=== PATIENT | female | born 1965 | race Caucasian/White ===

== ENCOUNTER 2016-07-15 18:16 | Emergency (ER) | payer MEDICAID ==
[~2016-07-15] VITALS: Ht 172.7 cm; Wt 79.9 kg
[~2016-07-15 18:16] MED LIST: BLAC20TA PO; FERR325T20 PO; LEVO50TA5 PO
[2016-07-15] MEDS ORDERED: SODIUM CHLORIDE FLUSH 10ML SYR IVF ONE (19:00)
[2016-07-15] MEDS ORDERED: SODIUM CHLORIDE 0.9% 1,000 ML IV ONE (19:00)
[2016-07-15 19:33] LABS: BLOOD UREA NITROGEN 24 mg/dL (7-18)
[2016-07-15 19:41] LABS: ASPARTATE AMINO TRANSFERASE 48 U/L (15-37)
[2016-07-15] MEDS ORDERED: SODIUM CHLORIDE 0.9% 1,000ML IVBOLUS ONE (20:30)
[2016-07-15 22:09] VITALS: BP 112/63
== END 2016-07-15 22:13 | disposition home or self-care (01) ==
LOC: ED 22:05
DX: D64.9 Anemia, unspecified (principal); K62.5 Hemorrhage of anus and rectum
CPT/HCPCS: 36415; 80053; 83690; 85025; 85610; 85730; 86850; 86900; 93005; 96360; 96361; 99285; J7030

== ENCOUNTER 2016-07-19 11:16 | Inpatient (IN) | payer MEDICAID ==
[~2016-07-19] VITALS: Ht 172.7 cm; Wt 93.6 kg
[2016-07-19] VITALS (11 sets, daily range): BP systolic 114–146; BP diastolic 63–83
[2016-07-19] MEDS ORDERED: SODIUM CHLORIDE FLUSH 10ML SYR IVF ONE (12:00)
[2016-07-19] MEDS ORDERED: VANCOMYCIN PER PHARMACY IV ONE (12:00)
[2016-07-19] MEDS ORDERED: PIPERACILLIN/TAZO/PMX 3.375GM 50 ML IVPB ONE (12:00)
[2016-07-19 12:40] LABS: HEMOGLOBIN 7.2 g/dL (11.7-16.4)
[2016-07-19 12:49] LABS: ASPARTATE AMINO TRANSFERASE 265 U/L (15-37); BLOOD UREA NITROGEN 8 mg/dL (7-18)
[2016-07-19 12:57] LABS: IS PT STATUS REG ER OR PRE ER? YES
[2016-07-19] MEDS ORDERED: DOCUSATE 100 MG CAPSULE PO PRN (14:00)
[2016-07-19] MEDS ORDERED: PANTOPRAZOLE 80 MG in SODIUM CHLORIDE 0.9% 50 ML IV ONE (14:00)
[2016-07-19] MEDS ORDERED: PROMETHAZINE 25 MG/ML, 1ML IM PRN (14:00)
[2016-07-19] MEDS ORDERED: POLYETHYLENE GLYCOL 17 GM PACKET PO PRN (14:00)
[2016-07-19] MEDS ORDERED: PANT40TA5 PO (15:16)
[2016-07-19 16:54] LABS: HEMOGLOBIN 7.4 g/dL (11.7-16.4)
[2016-07-19] MEDS: PANTOPRAZOLE 80 MG in SODIUM CHLORIDE 0.9% 100 ML IV SCH (17:28)
[2016-07-19] MEDS: POTASSIUM CHLORIDE 20 MEQ TAB.ER.PRT PO SCH (19:18)
[2016-07-19] MEDS: ONDANSETRON 2MG/ML, 2ML IVP PRN (19:42)
[2016-07-19] MEDS: SODIUM CHLORIDE 0.9% 1,000 ML IV SCH (20:40)
[2016-07-19] MEDS: MORPHINE SULFATE 4 MG/ML, 1ML IVPush PRN (21:51)
[2016-07-20] MEDS: PANTOPRAZOLE 80 MG in SODIUM CHLORIDE 0.9% 100 ML IV SCH ×2 (01:09→15:00)
[2016-07-20 01:45] VITALS: BP 105/69
[2016-07-20] MEDS: SODIUM CHLORIDE 0.9% 1,000 ML IV SCH ×3 (03:22→20:00)
[2016-07-20 05:20] LABS: HEMOGLOBIN 8.2 g/dL (11.7-16.4)
[2016-07-20 05:32] LABS: BLOOD UREA NITROGEN 6 mg/dL (7-18)
[2016-07-20] MEDS: POTASSIUM CHLORIDE 20 MEQ TAB.ER.PRT PO SCH ×2 (08:00→17:00)
[2016-07-20 08:05] VITALS: BP 114/75
[2016-07-20] MEDS ORDERED: ACETAMINOPHEN 500 MG TABLET PO ONE (10:30)
[2016-07-20 14:00] VITALS: BP 132/82
[2016-07-20 19:10] VITALS: BP 122/73
[2016-07-21] MEDS: PANTOPRAZOLE 80 MG in SODIUM CHLORIDE 0.9% 100 ML IV SCH ×3 (00:53→21:00)
[2016-07-21 01:58] VITALS: BP 123/75
[2016-07-21] MEDS: SODIUM CHLORIDE 0.9% 1,000 ML IV SCH ×2 (04:51→16:54)
[2016-07-21 06:09] LABS: HEMOGLOBIN 8.2 g/dL (11.7-16.4)
[2016-07-21 06:13] LABS: ASPARTATE AMINO TRANSFERASE 208 U/L (15-37); BLOOD UREA NITROGEN 6 mg/dL (7-18)
[2016-07-21 07:20] VITALS: BP 146/83
[2016-07-21] MEDS ORDERED: FENTANYL PF 100 MCG/2ML ONE (09:24)
[2016-07-21] MEDS ORDERED: MIDAZOLAM 1 MG/ML, 5ML ONE (09:25)
[2016-07-21 11:08] VITALS: BP 122/79
[2016-07-21] MEDS: POTASSIUM CHLORIDE 20 MEQ TAB.ER.PRT PO SCH ×2 (12:10→16:54)
[2016-07-21 14:59] VITALS: BP 132/85
[2016-07-21] MEDS ORDERED: FUROSEMIDE 20 MG/2 ML IV ONE (17:00)
[2016-07-21 19:07] VITALS: BP 117/76
[2016-07-21] MEDS: ONDANSETRON 2MG/ML, 2ML IVP PRN (20:39)
[2016-07-22 01:32] VITALS: BP 115/72
[2016-07-22] MEDS: PANTOPRAZOLE 80 MG in SODIUM CHLORIDE 0.9% 100 ML IV SCH (06:15)
[2016-07-22 06:16] LABS: HEMOGLOBIN 9.4 g/dL (11.7-16.4)
[2016-07-22 06:47] VITALS: BP 131/82
[2016-07-22] MEDS: POTASSIUM CHLORIDE 20 MEQ TAB.ER.PRT PO SCH ×2 (08:19→17:10)
[2016-07-22] MEDS: ACETAMINOPHEN 325 MG TABLET PO PRN (11:17)
[2016-07-22 12:43] VITALS: BP 112/77
[2016-07-22] MEDS: PANTOPROZOLE 40MG TABLET PO SCH (14:33)
[2016-07-22 20:00] VITALS: BP 131/74
[2016-07-23 01:46] VITALS: BP 109/73
[2016-07-23] MEDS: PANTOPROZOLE 40MG TABLET PO SCH ×2 (01:46→14:00)
[2016-07-23] MEDS: LEVOTHYROXINE 50 MCG TABLET PO SCH (05:37)
[2016-07-23 05:52] LABS: HEMOGLOBIN 8.7 g/dL (11.7-16.4)
[2016-07-23 06:03] LABS: BLOOD UREA NITROGEN 4 mg/dL (7-18)
[2016-07-23 07:29] VITALS: BP 116/77
[2016-07-23] MEDS: POTASSIUM CHLORIDE 20 MEQ TAB.ER.PRT PO SCH ×2 (08:34→18:23)
[2016-07-23] MEDS: MORPHINE SULFATE 4 MG/ML, 1ML IVPush PRN (11:50)
[2016-07-23] MEDS ORDERED: DIPHENHYDRAMINE 25 MG CAPSULE PO ONE (14:00)
[2016-07-23 14:05] VITALS: BP 135/85
[2016-07-23] MEDS: OXYcodone IR 5MG TABLET PO PRN (18:23)
[2016-07-23 21:40] VITALS: BP 126/84
[2016-07-24] MEDS: PANTOPROZOLE 40MG TABLET PO SCH ×2 (01:53→14:50)
[2016-07-24 01:55] VITALS: BP 110/72
[2016-07-24 05:04] LABS: HEMOGLOBIN 8.9 g/dL (11.7-16.4)
[2016-07-24 05:29] LABS: ASPARTATE AMINO TRANSFERASE 145 U/L (15-37); BLOOD UREA NITROGEN 4 mg/dL (7-18)
[2016-07-24] MEDS: LEVOTHYROXINE 50 MCG TABLET PO SCH (06:04)
[2016-07-24 07:06] VITALS: BP 120/72
[2016-07-24] MEDS: POTASSIUM CHLORIDE 20 MEQ TAB.ER.PRT PO SCH ×2 (09:16→17:24)
[2016-07-24] MEDS: OXYcodone IR 5MG TABLET PO PRN ×2 (10:56→22:55)
[2016-07-24 13:51] VITALS: BP 118/81
[2016-07-24 21:37] VITALS: BP 134/82
[2016-07-25] MEDS: PANTOPROZOLE 40MG TABLET PO SCH ×2 (02:21→13:30)
[2016-07-25 02:24] VITALS: BP 115/64
[2016-07-25 04:51] LABS: ASPARTATE AMINO TRANSFERASE 143 U/L (15-37); BLOOD UREA NITROGEN 6 mg/dL (7-18)
[2016-07-25] MEDS: LEVOTHYROXINE 50 MCG TABLET PO SCH (07:02)
[2016-07-25 07:06] VITALS: BP 131/82
[2016-07-25] MEDS: POTASSIUM CHLORIDE 20 MEQ TAB.ER.PRT PO SCH ×2 (08:00→17:00)
[2016-07-25 13:31] VITALS: BP 118/76
[2016-07-25] MEDS ORDERED: FENTANYL PF 100 MCG/2ML ONE ×4 (15:02→17:42)
[2016-07-25] MEDS ORDERED: PROPOFOL 10 MG/ML, 20ML ONE (15:09)
[2016-07-25] MEDS ORDERED: ONDANSETRON 2MG/ML, 2ML ONE ×2 (15:09→17:23)
[2016-07-25] MEDS ORDERED: DEXAMETHASONE 4 MG/ML, 1ML ONE (15:09)
[2016-07-25] MEDS ORDERED: SUCCINYLCHOLINE 20 MG/ML, 10ML ONE (15:09)
[2016-07-25] MEDS ORDERED: PIPERACILLIN/TAZO/PMX 3.375GM 50 ML ONE (15:18)
[2016-07-25] MEDS: FENTANYL PF 100 MCG/2ML IV PRN ×4 (17:25→17:51)
[2016-07-25] MEDS ORDERED: INDOMETHACIN 50 MG SUPP.RECT ONE (17:27)
[2016-07-25] MEDS ORDERED: INDOMETHACIN 50 MG SUPP.RECT PR ONE (18:00)
[2016-07-25] MEDS ORDERED: HYDROmorphone 2 MG/ML, 1ML ONE (18:07)
[2016-07-25] MEDS ORDERED: PROMETHAZINE 25 MG/ML, 1ML IV PRN (18:30)
[2016-07-25] MEDS ORDERED: MEPERIDINE/PF 25MG/0.5ML IVPush PRN (18:30)
[2016-07-25] MEDS ORDERED: HYDROmorphone 1 MG/ML, 1ML IV PRN (18:30)
[2016-07-25] MEDS ORDERED: hydrALAzine 20 MG/ML, 1ML IV PRN (18:30)
[2016-07-25] MEDS ORDERED: OXYcodone 5 MG/5 ML ORAL.SOL UDC PO PRN (18:30)
[2016-07-25] MEDS ORDERED: LABETALOL 5MG/ML, 20ML IV PRN (18:30)
[2016-07-25] MEDS ORDERED: ONDANSETRON 2MG/ML, 2ML IVPush PRN (18:30)
[2016-07-25 18:45] VITALS: BP 149/84
[2016-07-25] MEDS: MORPHINE SULFATE 4 MG/ML, 1ML IVPush PRN (21:32)
[2016-07-25] MEDS: ONDANSETRON 2MG/ML, 2ML IVP PRN (22:27)
[2016-07-25] MEDS: OXYcodone IR 5MG TABLET PO PRN (22:28)
[2016-07-25] MEDS: PIPERACILLIN/TAZO/PMX 4.5GM 100 ML IV SCH (22:53)
[2016-07-26] MEDS: PANTOPROZOLE 40MG TABLET PO SCH ×3 (01:16→21:41)
[2016-07-26 02:00] VITALS: BP 147/86
[2016-07-26 03:44] VITALS: BP 148/84
[2016-07-26 04:36] LABS: HEMOGLOBIN 10.3 g/dL (11.7-16.4)
[2016-07-26 04:43] LABS: BLOOD UREA NITROGEN 12 mg/dL (7-18)
[2016-07-26 04:46] LABS: ASPARTATE AMINO TRANSFERASE 186 U/L (15-37)
[2016-07-26] MEDS: MORPHINE SULFATE 4 MG/ML, 1ML IVPush PRN ×2 (05:45→20:29)
[2016-07-26] MEDS: LEVOTHYROXINE 50 MCG TABLET PO SCH (06:15)
[2016-07-26 07:15] VITALS: BP 137/77
[2016-07-26] MEDS: OXYcodone IR 5MG TABLET PO PRN ×3 (08:17→18:22)
[2016-07-26] MEDS: PIPERACILLIN/TAZO/PMX 4.5GM 100 ML IV SCH ×3 (08:17→23:31)
[2016-07-26] MEDS: POTASSIUM CHLORIDE 20 MEQ TAB.ER.PRT PO SCH ×2 (08:17→16:40)
[2016-07-26] MEDS: SODIUM CHLORIDE 0.9% 1,000 ML IV SCH ×3 (11:18→21:42)
[2016-07-26 14:27] VITALS: BP 135/84
[2016-07-26] MEDS: ONDANSETRON 2MG/ML, 2ML IVP PRN (18:04)
[2016-07-26 22:08] VITALS: BP 117/75
[2016-07-27 01:53] VITALS: BP 120/80
[2016-07-27] MEDS: OXYcodone IR 5MG TABLET PO PRN ×5 (03:31→20:41)
[2016-07-27] MEDS: SODIUM CHLORIDE 0.9% 1,000 ML IV SCH ×4 (03:33→20:00)
[2016-07-27 04:52] LABS: HEMOGLOBIN 10.3 g/dL (11.7-16.4)
[2016-07-27 04:59] LABS: BLOOD UREA NITROGEN 11 mg/dL (7-18)
[2016-07-27 05:03] LABS: ASPARTATE AMINO TRANSFERASE 103 U/L (15-37)
[2016-07-27 05:16] LABS: DIFF TOTAL CELLS COUNTED 100 CELL DIFF
[2016-07-27 05:17] LABS: VERIFY COUNTS? YES
[2016-07-27 05:18] LABS: ANISOCYTOSIS 2+; OVALOCYTES 1+
[2016-07-27] MEDS: LEVOTHYROXINE 50 MCG TABLET PO SCH (06:03)
[2016-07-27] MEDS: PANTOPROZOLE 40MG TABLET PO SCH ×2 (07:27→20:40)
[2016-07-27] MEDS: POTASSIUM CHLORIDE 20 MEQ TAB.ER.PRT PO SCH ×2 (07:27→16:24)
[2016-07-27] MEDS: PIPERACILLIN/TAZO/PMX 4.5GM 100 ML IV SCH (07:27)
[2016-07-27 08:30] VITALS: BP 110/77
[2016-07-27 09:55] VITALS: BP 104/74
[2016-07-27 13:01] VITALS: BP 110/77
[2016-07-27 20:25] VITALS: BP 107/63
[2016-07-28] MEDS: SODIUM CHLORIDE 0.9% 1,000 ML IV SCH ×3 (00:55→13:46)
[2016-07-28] MEDS: OXYcodone IR 5MG TABLET PO PRN ×5 (01:14→20:54)
[2016-07-28 03:49] VITALS: BP 119/82
[2016-07-28 04:58] LABS: HEMOGLOBIN 9.4 g/dL (11.7-16.4)
[2016-07-28] MEDS: LEVOTHYROXINE 50 MCG TABLET PO SCH (05:08)
[2016-07-28 05:15] LABS: ASPARTATE AMINO TRANSFERASE 46 U/L (15-37); BLOOD UREA NITROGEN 11 mg/dL (7-18)
[2016-07-28 05:53] LABS: DIFF TOTAL CELLS COUNTED 100 CELL DIFF
[2016-07-28 05:55] LABS: ANISOCYTOSIS 1+; VERIFY COUNTS? YES
[2016-07-28 08:21] VITALS: BP 114/78
[2016-07-28] MEDS: POTASSIUM CHLORIDE 20 MEQ TAB.ER.PRT PO SCH ×2 (09:28→22:39)
[2016-07-28] MEDS: PANTOPROZOLE 40MG TABLET PO SCH ×2 (09:28→22:38)
[2016-07-28 14:36] VITALS: BP 117/76
[2016-07-28] MEDS ORDERED: OMNIPAQUE 350 MG/ML, 100ML BOTTLE ONE (18:56)
[2016-07-28] MEDS ORDERED: OMNIPAQUE 350 MG/ML, 50 ML BOTTLE ONE (18:56)
[2016-07-28] MEDS: MORPHINE SULFATE 4 MG/ML, 1ML IVPush PRN (20:56)
[2016-07-28 21:04] VITALS: BP 119/75
[2016-07-29] MEDS: OXYcodone IR 5MG TABLET PO PRN ×5 (01:13→20:06)
[2016-07-29 01:26] VITALS: BP 113/75
[2016-07-29 04:53] LABS: HEMOGLOBIN 8.7 g/dL (11.7-16.4)
[2016-07-29 05:03] LABS: ASPARTATE AMINO TRANSFERASE 36 U/L (15-37); BLOOD UREA NITROGEN 7 mg/dL (7-18)
[2016-07-29] MEDS: LEVOTHYROXINE 50 MCG TABLET PO SCH (05:36)
[2016-07-29 05:38] LABS: DIFF TOTAL CELLS COUNTED 100 CELL DIFF
[2016-07-29 05:40] LABS: ANISOCYTOSIS 1+; VERIFY COUNTS? YES
[2016-07-29 05:41] LABS: HYPOCHROMIA 1+; POIKILOCYTOSIS 1+
[2016-07-29 07:04] VITALS: BP 114/76
[2016-07-29] MEDS: POTASSIUM CHLORIDE 20 MEQ TAB.ER.PRT PO SCH ×2 (08:22→15:24)
[2016-07-29] MEDS: PANTOPROZOLE 40MG TABLET PO SCH ×2 (08:22→21:30)
[2016-07-29] MEDS ORDERED: SODIUM CHLORIDE 0.9% 1,000 ML IV SCH (11:00)
[2016-07-29] MEDS: SODIUM CHLORIDE 0.9% 1,000 ML IV SCH (12:12)
[2016-07-29 12:44] VITALS: BP 111/71
[2016-07-29 19:18] VITALS: BP 111/81
[2016-07-30] MEDS: SODIUM CHLORIDE 0.9% 1,000 ML IV SCH ×2 (00:20→14:46)
[2016-07-30 01:55] VITALS: BP 126/77
[2016-07-30] MEDS: OXYcodone IR 5MG TABLET PO PRN ×4 (03:00→20:24)
[2016-07-30] MEDS: MORPHINE SULFATE 4 MG/ML, 1ML IVPush PRN ×3 (03:07→14:46)
[2016-07-30 05:20] LABS: HEMOGLOBIN 7.9 g/dL (11.7-16.4)
[2016-07-30 05:34] LABS: ASPARTATE AMINO TRANSFERASE 34 U/L (15-37); BLOOD UREA NITROGEN 6 mg/dL (7-18)
[2016-07-30] MEDS: LEVOTHYROXINE 50 MCG TABLET PO SCH (05:45)
[2016-07-30 05:56] LABS: DIFF TOTAL CELLS COUNTED 100 CELL DIFF
[2016-07-30 05:59] LABS: VERIFY COUNTS? YES
[2016-07-30 06:01] LABS: HYPOCHROMIA 1+; MICROCYTOSIS 1+
[2016-07-30 06:02] LABS: GIANT PLATELETS 1+; LARGE PLATELETS 1+
[2016-07-30 06:03] LABS: POLYCHROMASIA 1+
[2016-07-30 06:04] LABS: ANISOCYTOSIS 2+
[2016-07-30 07:59] VITALS: BP 114/74
[2016-07-30] MEDS: POTASSIUM CHLORIDE 20 MEQ TAB.ER.PRT PO SCH ×2 (08:49→17:41)
[2016-07-30] MEDS: PANTOPROZOLE 40MG TABLET PO SCH ×2 (08:49→20:23)
[2016-07-30 14:54] VITALS: BP 124/81
[2016-07-30] MEDS ORDERED: FUROSEMIDE 20 MG/2 ML IV ONE (16:30)
[2016-07-30 18:57] VITALS: BP 130/84
[2016-07-31] MEDS: OXYcodone IR 5MG TABLET PO PRN ×6 (01:38→21:01)
[2016-07-31 01:47] VITALS: BP 118/74
[2016-07-31] MEDS: MORPHINE SULFATE 4 MG/ML, 1ML IVPush PRN (01:58)
[2016-07-31 04:13] LABS: HEMOGLOBIN 8.6 g/dL (11.7-16.4)
[2016-07-31 04:24] LABS: BLOOD UREA NITROGEN 4 mg/dL (7-18)
[2016-07-31 04:28] LABS: ASPARTATE AMINO TRANSFERASE 38 U/L (15-37)
[2016-07-31 04:30] LABS: DIFF TOTAL CELLS COUNTED 100 CELL DIFF
[2016-07-31 04:32] LABS: ANISOCYTOSIS 1+; VERIFY COUNTS? YES
[2016-07-31 04:33] LABS: HYPOCHROMIA 1+; MICROCYTOSIS 1+; OVALOCYTES 1+; POLYCHROMASIA 1+
[2016-07-31 04:34] LABS: GIANT PLATELETS 1+; LARGE PLATELETS 1+; STOMATOCYTES 1+
[2016-07-31] MEDS: LEVOTHYROXINE 50 MCG TABLET PO SCH (06:05)
[2016-07-31 07:14] VITALS: BP 126/75
[2016-07-31] MEDS: POTASSIUM CHLORIDE 20 MEQ TAB.ER.PRT PO SCH ×3 (08:43→21:00)
[2016-07-31] MEDS: PANTOPROZOLE 40MG TABLET PO SCH ×2 (08:45→21:00)
[2016-07-31] MEDS ORDERED: metroNIDAZOLE 500 MG TABLET PO SCH (09:00)
[2016-07-31] MEDS: VANCOMYCIN 50 MG/ML ORAL SUSP PO SCH ×3 (09:28→21:00)
[2016-07-31] MEDS: METRONIDAZOLE PMX 500MG/100ML 100 ML IV SCH ×2 (09:28→16:25)
[2016-07-31] MEDS: IMATINIB 400 MG TABLET PO SCH (12:30)
[2016-07-31 13:27] VITALS: BP 111/74
[2016-07-31 20:12] VITALS: BP 130/81
[2016-08-01] MEDS: METRONIDAZOLE PMX 500MG/100ML 100 ML IV SCH ×3 (01:43→16:37)
[2016-08-01 03:27] VITALS: BP 109/64
[2016-08-01] MEDS: OXYcodone IR 5MG TABLET PO PRN ×4 (03:34→21:00)
[2016-08-01] MEDS: VANCOMYCIN 50 MG/ML ORAL SUSP PO SCH ×4 (03:34→20:59)
[2016-08-01] MEDS: LEVOTHYROXINE 50 MCG TABLET PO SCH (05:40)
[2016-08-01 07:26] VITALS: BP 109/71
[2016-08-01] MEDS: PANTOPROZOLE 40MG TABLET PO SCH ×2 (08:14→20:59)
[2016-08-01] MEDS: POTASSIUM CHLORIDE 20 MEQ TAB.ER.PRT PO SCH ×3 (08:15→20:59)
[2016-08-01] MEDS: IMATINIB 400 MG TABLET PO SCH (08:51)
[2016-08-01 12:43] VITALS: BP 119/74
[2016-08-01 13:36] LABS: ASPARTATE AMINO TRANSFERASE 58 U/L (15-37); BLOOD UREA NITROGEN 3 mg/dL (7-18)
[2016-08-01 20:58] VITALS: BP 124/72
[2016-08-02 01:08] VITALS: BP 114/71
[2016-08-02] MEDS: OXYcodone IR 5MG TABLET PO PRN ×5 (01:42→20:16)
[2016-08-02] MEDS: METRONIDAZOLE PMX 500MG/100ML 100 ML IV SCH ×3 (01:42→17:32)
[2016-08-02] MEDS: VANCOMYCIN 50 MG/ML ORAL SUSP PO SCH ×4 (03:43→20:15)
[2016-08-02 04:49] LABS: HEMOGLOBIN 9.4 g/dL (11.7-16.4)
[2016-08-02 04:51] LABS: ASPARTATE AMINO TRANSFERASE 40 U/L (15-37); BLOOD UREA NITROGEN 2 mg/dL (7-18)
[2016-08-02 05:11] LABS: DIFF TOTAL CELLS COUNTED 100 CELL DIFF
[2016-08-02 05:13] LABS: ANISOCYTOSIS 1+; HYPOCHROMIA 1+; OVALOCYTES 1+; POLYCHROMASIA 1+; VERIFY COUNTS? YES
[2016-08-02 05:14] LABS: MICROCYTOSIS 1+; POIKILOCYTOSIS 1+; STOMATOCYTES 1+
[2016-08-02 05:15] LABS: LARGE PLATELETS 1+
[2016-08-02] MEDS: LEVOTHYROXINE 50 MCG TABLET PO SCH (06:02)
[2016-08-02 07:35] VITALS: BP 123/75
[2016-08-02] MEDS: ACETAMINOPHEN 325 MG TABLET PO PRN (08:07)
[2016-08-02] MEDS: POTASSIUM CHLORIDE 20 MEQ TAB.ER.PRT PO SCH ×3 (08:07→20:15)
[2016-08-02] MEDS: PANTOPROZOLE 40MG TABLET PO SCH ×2 (08:07→20:15)
[2016-08-02] MEDS ORDERED: FUROSEMIDE 20 MG/2 ML IV ONE (09:00)
[2016-08-02] MEDS ORDERED: ALBUMIN HUMAN 25% 100 ML IV ONE (09:00)
[2016-08-02] MEDS: IMATINIB 400 MG TABLET PO SCH (09:40)
[2016-08-02 13:02] VITALS: BP 116/74
[2016-08-02 19:08] VITALS: BP 125/82
[2016-08-03] MEDS: METRONIDAZOLE PMX 500MG/100ML 100 ML IV SCH ×3 (01:24→17:48)
[2016-08-03] MEDS: OXYcodone IR 5MG TABLET PO PRN ×5 (01:24→20:43)
[2016-08-03 01:25] VITALS: BP 117/75
[2016-08-03] MEDS: VANCOMYCIN 50 MG/ML ORAL SUSP PO SCH ×4 (03:46→20:43)
[2016-08-03 05:28] LABS: HEMOGLOBIN 10.3 g/dL (11.7-16.4)
[2016-08-03 05:40] LABS: BLOOD UREA NITROGEN 2 mg/dL (7-18)
[2016-08-03] MEDS: LEVOTHYROXINE 50 MCG TABLET PO SCH (05:43)
[2016-08-03 05:44] LABS: ASPARTATE AMINO TRANSFERASE 35 U/L (15-37)
[2016-08-03 05:50] LABS: DIFF TOTAL CELLS COUNTED 100 CELL DIFF
[2016-08-03 05:52] LABS: ANISOCYTOSIS 1+; VERIFY COUNTS? YES
[2016-08-03 05:53] LABS: POIKILOCYTOSIS 1+; POLYCHROMASIA 1+
[2016-08-03 05:54] LABS: LARGE PLATELETS 1+; OVALOCYTES 1+
[2016-08-03 07:20] VITALS: BP 116/75
[2016-08-03] MEDS: MORPHINE SULFATE 4 MG/ML, 1ML IVPush PRN (07:34)
[2016-08-03] MEDS: IMATINIB 400 MG TABLET PO SCH (09:00)
[2016-08-03] MEDS: POTASSIUM CHLORIDE 20 MEQ TAB.ER.PRT PO SCH ×3 (09:13→20:42)
[2016-08-03] MEDS: PANTOPROZOLE 40MG TABLET PO SCH ×2 (09:13→20:42)
[2016-08-03 13:00] VITALS: BP 130/85
[2016-08-03 19:21] VITALS: BP 130/84
[2016-08-04] MEDS: OXYcodone IR 5MG TABLET PO PRN ×4 (01:34→15:54)
[2016-08-04] MEDS: METRONIDAZOLE PMX 500MG/100ML 100 ML IV SCH ×2 (01:35→10:25)
[2016-08-04] MEDS: VANCOMYCIN 50 MG/ML ORAL SUSP PO SCH ×3 (04:03→15:54)
[2016-08-04 04:04] VITALS: BP 119/76
[2016-08-04] MEDS: LEVOTHYROXINE 50 MCG TABLET PO SCH (05:35)
[2016-08-04 05:47] LABS: HEMOGLOBIN 9.6 g/dL (11.7-16.4)
[2016-08-04 06:11] LABS: DIFF TOTAL CELLS COUNTED 100 CELL DIFF
[2016-08-04 06:13] LABS: ASPARTATE AMINO TRANSFERASE 31 U/L (15-37); BLOOD UREA NITROGEN 2 mg/dL (7-18); VERIFY COUNTS? YES
[2016-08-04 06:14] LABS: ANISOCYTOSIS 1+; LARGE PLATELETS 1+; MICROCYTOSIS 1+; POLYCHROMASIA 1+
[2016-08-04] MEDS: PANTOPROZOLE 40MG TABLET PO SCH (07:53)
[2016-08-04] MEDS: IMATINIB 400 MG TABLET PO SCH (07:53)
[2016-08-04] MEDS: POTASSIUM CHLORIDE 20 MEQ TAB.ER.PRT PO SCH (07:53)
[2016-08-04 07:55] VITALS: BP 122/85
[2016-08-04] MEDS ORDERED: VANC1VIA3 PO (15:38)
[2016-08-04] MEDS ORDERED: OXYC5TAB3 PO (15:38)
[2016-08-04] MEDS ORDERED: IMAT400T PO (15:38)
== END 2016-08-04 16:59 | disposition home or self-care (01) | DRG 871 ==
LOC: ED 12:34 → EDIP 13:49 → 4WST 16:09 → 3NW 07-23 21:39
PROVIDERS: ADMIT Hospitalist; ATTEND Internal Medicine
PROC: 0W3P8ZZ Control Bleeding in Gastrointestinal Tract, Via Natural or Artificial Opening Endoscopic (ICD-10-PCS; principal; 2016-07-19)
PROC: 30233N1 Transfusion of Nonautologous Red Blood Cells into Peripheral Vein, Percutaneous Approach (ICD-10-PCS; 2016-07-19)
PROC: 0T9B70Z Drainage of Bladder with Drainage Device, Via Natural or Artificial Opening (ICD-10-PCS; 2016-07-19)
PROC: 0F7C8DZ Dilation of Ampulla of Vater with Intraluminal Device, Via Natural or Artificial Opening Endoscopic (ICD-10-PCS; 2016-07-25)
PROC: 0F768DZ Dilation of Left Hepatic Duct with Intraluminal Device, Via Natural or Artificial Opening Endoscopic (ICD-10-PCS; 2016-07-25)
PROC: 0F798DZ Dilation of Common Bile Duct with Intraluminal Device, Via Natural or Artificial Opening Endoscopic (ICD-10-PCS; 2016-07-25)
PROC: BF131ZZ Fluoroscopy of Gallbladder and Bile Ducts using Low Osmolar Contrast (ICD-10-PCS; 2016-07-25)
DX: A41.9 Sepsis, unspecified organism (principal); K83.1 Obstruction of bile duct; E43 Unspecified severe protein-calorie malnutrition; K85.90 Acute pancreatitis without necrosis or infection, unspecified; K26.4 Chronic or unspecified duodenal ulcer with hemorrhage; D62 Acute posthemorrhagic anemia; C78.7 Secondary malignant neoplasm of liver and intrahepatic bile duct; K22.10 Ulcer of esophagus without bleeding; C49.A3 Gastrointestinal stromal tumor of small intestine; A04.7 Enterocolitis due to Clostridium difficile; E87.1 Hypo-osmolality and hyponatremia; K44.9 Diaphragmatic hernia without obstruction or gangrene; E87.6 Hypokalemia; F10.10 Alcohol abuse, uncomplicated; E03.9 Hypothyroidism, unspecified; D53.9 Nutritional anemia, unspecified; R74.0 Nonspecific elevation of levels of transaminase and lactic acid dehydrogenase [LDH]; R74.8 Abnormal levels of other serum enzymes; D75.89 Other specified diseases of blood and blood-forming organs; K59.00 Constipation, unspecified; Z92.21 Personal history of antineoplastic chemotherapy; D63.8 Anemia in other chronic diseases classified elsewhere; Z79.899 Other long term (current) drug therapy; F41.9 Anxiety disorder, unspecified; F32.9 Major depressive disorder, single episode, unspecified; E86.0 Dehydration
CPT/HCPCS: 36415; 71010; 74177; 74328; 76700; 78278; 80048; 80053; 81001; 82150; 82308; 82728; 83540; 83550; 83690; 83735; 83880; 84145; 84484; 84703; 85014; 85018; 85025; 85045; 85610; 85730; 86850; 86900; 86923; 87324; 87493; 93005; 93306; 93970; J1100; J1170; J2250; J2405; J2543; J2550; J2704; J3010; J3370; P9047; Q9967; A4648; A9560; C1769; C1876; C9113; C9898; J0330; J1940; J7030; P9016; Q0163

== ENCOUNTER 2016-09-01 12:07 | Emergency (ER) | payer MEDICAID ==
[~2016-09-01] VITALS: Ht 172.7 cm; Wt 71.7 kg
[~2016-09-01 12:07] MED LIST changes: +IMAT400T PO; +OXYC5TAB3 PO; +PANT40TA5 PO; +VANC1VIA3 PO
[2016-09-01] MEDS ORDERED: SODIUM CHLORIDE 0.9% 1,000ML IVBOLUS ONE (13:00)
[2016-09-01] MEDS ORDERED: FAMOTIDINE 20 MG/2 ML IVP ONE (13:00)
[2016-09-01] MEDS ORDERED: ONDANSETRON 2MG/ML, 2ML IVPush ONE (13:00)
[2016-09-01] MEDS ORDERED: SODIUM CHLORIDE FLUSH 10ML SYR IVF ONE (13:00)
[2016-09-01] MEDS ORDERED: FAMOTIDINE 20 MG/2 ML ONE (13:23)
[2016-09-01] MEDS ORDERED: ONDANSETRON 2MG/ML, 2ML ONE (13:23)
[2016-09-01 13:37] LABS: ASPARTATE AMINO TRANSFERASE 21 U/L (15-37); BLOOD UREA NITROGEN 7 mg/dL (7-18)
[2016-09-01 13:51] LABS: ANISOCYTOSIS 1+; MICROCYTOSIS 1+; OVALOCYTES 1+
[2016-09-01 16:00] VITALS: BP 148/82
== END 2016-09-01 16:05 | disposition home or self-care (01) ==
LOC: ED 13:57
DX: K86.1 Other chronic pancreatitis (principal); Z85.00 Personal history of malignant neoplasm of unspecified digestive organ
CPT/HCPCS: 36415; 80053; 81001; 83690; 85025; 86850; 86900; 87086; 93971; 96361; 96374; 96375; 99285; J2405; J7030; S0028

== ENCOUNTER 2016-12-28 12:48 | Inpatient (IN) | payer MEDICAID ==
[~2016-12-28] VITALS: Ht 172.7 cm; Wt 63.0 kg
[~2016-12-28 12:48] MED LIST changes: +FERR325T18 PO; -FERR325T20 PO
[2016-12-28] MEDS ORDERED: ONDANSETRON 2MG/ML, 2ML IVPush ONE (13:30)
[2016-12-28] MEDS ORDERED: SODIUM CHLORIDE 0.9% 1,000ML IVBOLUS ONE (13:30)
[2016-12-28] MEDS ORDERED: FAMOTIDINE 20 MG/2 ML IVP ONE (13:30)
[2016-12-28] MEDS ORDERED: SODIUM CHLORIDE FLUSH 10ML SYR IVF ONE (13:30)
[2016-12-28] MEDS ORDERED: FAMOTIDINE 20 MG/2 ML ONE (13:53)
[2016-12-28] MEDS ORDERED: ONDANSETRON 2MG/ML, 2ML ONE (13:53)
[2016-12-28 13:57] LABS: HEMATOCRIT 35.1 % (34.6-47.8); HEMOGLOBIN 11.8 g/dL (11.7-16.4); WHITE BLOOD COUNT 5.6 x10^3/uL (3.4-10)
[2016-12-28 14:09] LABS: ASPARTATE AMINO TRANSFERASE 22 U/L (15-37); BLOOD UREA NITROGEN 11 mg/dL (7-18)
[2016-12-28] MEDS ORDERED: OMNIPAQUE 350 MG/ML, 100ML BOTTLE ONE (15:57)
[2016-12-28 19:09] VITALS: BP 134/83
[2016-12-28] MEDS ORDERED: ENALAPRILAT 1.25 MG/ML, 2ML IVPush PRN (19:30)
[2016-12-28] MEDS ORDERED: LORazepam 2 MG/ML, 1ML IVPush PRN (19:30)
[2016-12-28] MEDS ORDERED: PROMETHAZINE 25 MG/ML, 1ML IM PRN (19:30)
[2016-12-28] MEDS: SODIUM CHLORIDE 0.9% 1,000 ML IV SCH (19:41)
[2016-12-28] MEDS: ACETAMINOPHEN 325 MG TABLET PO PRN (20:46)
[2016-12-28 20:47] VITALS: BP 134/83
[2016-12-28] MEDS: DOXYCYCLINE 100MG TABLET PO SCH ×2 (22:30→22:53)
[2016-12-28] MEDS: CEFTRIAXONE PMX 1GM/50ML 50 ML IV SCH ×2 (22:54→23:43)
[2016-12-29 02:26] VITALS: BP 100/64
[2016-12-29 05:00] LABS: HEMATOCRIT 32.5 % (34.6-47.8); WHITE BLOOD COUNT 4.9 x10^3/uL (3.4-10)
[2016-12-29 05:09] LABS: BLOOD UREA NITROGEN 7 mg/dL (7-18)
[2016-12-29 05:14] LABS: ASPARTATE AMINO TRANSFERASE 16 U/L (15-37)
[2016-12-29] MEDS: ACETAMINOPHEN 325 MG TABLET PO PRN (05:24)
[2016-12-29 07:39] VITALS: BP 116/72
[2016-12-29] MEDS: IMATINIB 400 MG TABLET PO SCH (08:28)
[2016-12-29] MEDS: DOXYCYCLINE 100MG TABLET PO SCH ×2 (08:29→21:45)
[2016-12-29] MEDS: LEVOTHYROXINE 50 MCG TABLET PO SCH (08:29)
[2016-12-29] MEDS: SODIUM CHLORIDE 0.9% 1,000 ML IV SCH (08:32)
[2016-12-29] MEDS: OXYcodone IR 5MG TABLET PO PRN ×3 (13:18→21:44)
[2016-12-29 14:01] VITALS: BP 115/77
[2016-12-29 18:46] VITALS: BP 118/74
[2016-12-30] MEDS: CEFTRIAXONE PMX 1GM/50ML 50 ML IV SCH (01:06)
[2016-12-30] MEDS: SODIUM CHLORIDE 0.9% 1,000 ML IV SCH (01:08)
[2016-12-30 01:13] VITALS: BP 109/71
[2016-12-30] MEDS: OXYcodone IR 5MG TABLET PO PRN ×2 (06:35→20:33)
[2016-12-30] MEDS: LEVOTHYROXINE 50 MCG TABLET PO SCH (06:36)
[2016-12-30 07:42] VITALS: BP 117/77
[2016-12-30] MEDS: DOXYCYCLINE 100MG TABLET PO SCH ×2 (09:00→20:33)
[2016-12-30] MEDS: IMATINIB 400 MG TABLET PO SCH (09:00)
[2016-12-30] MEDS ORDERED: HYDROmorphone 1 MG/ML, 1ML IV PRN (11:00)
[2016-12-30] MEDS ORDERED: FENTANYL PF 100 MCG/2ML ONE ×6 (12:48→13:59)
[2016-12-30] MEDS ORDERED: MIDAZOLAM 1 MG/ML, 2ML ONE (12:48)
[2016-12-30] MEDS ORDERED: DEXAMETHASONE 4 MG/ML, 1ML ONE (12:50)
[2016-12-30] MEDS ORDERED: CEFAZOLIN 1,000 MG ONE (12:50)
[2016-12-30] MEDS ORDERED: PROPOFOL 10 MG/ML, 20ML ONE (12:50)
[2016-12-30] MEDS ORDERED: ONDANSETRON 2MG/ML, 2ML ONE (12:50)
[2016-12-30] MEDS ORDERED: BUPIVACAINE/PF-EPI 0.5% 1:200K INFIL ONE (13:16)
[2016-12-30] MEDS ORDERED: ALBUTEROL/IPRATROPIUM 2.5MG/0.5MG, 3 ML NPPB PRN (13:30)
[2016-12-30] MEDS ORDERED: ACETAMINOPHEN 325 MG TABLET PO PRN (13:30)
[2016-12-30] MEDS ORDERED: METOPROLOL 1 MG/ML, 5ML IV PRN (13:30)
[2016-12-30] MEDS ORDERED: MEPERIDINE/PF 25MG/0.5ML IVPush PRN (13:30)
[2016-12-30] MEDS ORDERED: PROMETHAZINE 25 MG/ML, 1ML IV PRN (13:30)
[2016-12-30] MEDS ORDERED: hydrALAzine 20 MG/ML, 1ML IV PRN (13:30)
[2016-12-30] MEDS ORDERED: OXYcodone 5 MG/5 ML ORAL.SOL UDC PO PRN (13:30)
[2016-12-30] MEDS ORDERED: MIDAZOLAM 1 MG/ML, 2ML IV PRN (13:30)
[2016-12-30] MEDS ORDERED: OXYcodone 5 MG/5 ML ORAL.SOL UDC ONE (13:32)
[2016-12-30] MEDS: FENTANYL PF 100 MCG/2ML IV PRN ×3 (13:37→14:00)
[2016-12-30] MEDS ORDERED: HYDROmorphone 1 MG/ML, 1ML ONE (14:19)
[2016-12-30] MEDS: HYDROmorphone 1 MG/ML, 1ML IV PRN ×2 (14:22→14:29)
[2016-12-30] MEDS ORDERED: OXYcodone/APAP 5/325MG TABLET PO PRN (15:30)
[2016-12-30] MEDS ORDERED: morphine SULFATE 10 MG/ML, 1ML IV PRN (15:30)
[2016-12-30 19:31] VITALS: BP 125/79
[2016-12-31] MEDS: CEFTRIAXONE PMX 1GM/50ML 50 ML IV SCH (00:28)
[2016-12-31] MEDS: OXYcodone IR 5MG TABLET PO PRN ×4 (00:28→14:20)
[2016-12-31 01:03] VITALS: BP 115/70
[2016-12-31] MEDS: LEVOTHYROXINE 50 MCG TABLET PO SCH (05:25)
[2016-12-31 08:21] VITALS: BP 116/68
[2016-12-31] MEDS: DOXYCYCLINE 100MG TABLET PO SCH (09:19)
[2016-12-31 11:27] LABS: BLOOD UREA NITROGEN 6 mg/dL (7-18)
[2016-12-31] MEDS ORDERED: DOXY100T PO (12:46)
[2016-12-31] MEDS ORDERED: CEFD300C37 PO (12:46)
[2016-12-31] MEDS ORDERED: LACT1CAP24 PO (12:46)
[2016-12-31 14:23] VITALS: BP 102/66
== END 2016-12-31 17:05 | disposition home or self-care (01) | DRG 417 ==
LOC: ED 13:16 → EDIP 17:47 → 3NW 19:02
PROVIDERS: ADMIT Hospitalist; ATTEND Internal Medicine
PROC: 0FT44ZZ Resection of Gallbladder, Percutaneous Endoscopic Approach (ICD-10-PCS; principal; 2016-12-30 13:00)
DX: K81.0 Acute cholecystitis (principal); J18.1 Lobar pneumonia, unspecified organism; C49.A0 Gastrointestinal stromal tumor, unspecified site; F10.21 Alcohol dependence, in remission; D50.9 Iron deficiency anemia, unspecified; E03.9 Hypothyroidism, unspecified; K76.9 Liver disease, unspecified; Z85.00 Personal history of malignant neoplasm of unspecified digestive organ
CPT/HCPCS: 36415; 74177; 76700; 78227; 80048; 80053; 81003; 83690; 83735; 84100; 84439; 84443; 85025; 87040; 87324; 88304; 96374; 96375; J0690; J0696; J1100; J1170; J2250; J2405; J2550; J2704; J3010; Q9967; A9537; C9898; J2060; J7030; S0028

== ENCOUNTER → 2017-04-07 | Outpatient (CLI) | payer MEDICAID ==
[~2017-04-07] MED LIST changes: +CEFD300C37 PO; +DOXY100T PO; +LACT1CAP24 PO
== END | disposition home or self-care (01) ==
LOC: CFH 07:37
PROVIDERS: ATTEND Internal Medicine Hematology & Oncology
DX: K76.89 Other specified diseases of liver (principal); D50.9 Iron deficiency anemia, unspecified
CPT/HCPCS: 76700

== ENCOUNTER → 2017-08-01 | Outpatient (CLI) | payer BC, MEDICAID | END | disposition home or self-care (01) | LOC: CFH 14:19 | PROVIDERS: ATTEND Genetic Counselor, MS | DX: Z12.31 Encounter for screening mammogram for malignant neoplasm of breast (principal) | CPT/HCPCS: 77063; 77067 ==

== ENCOUNTER → 2017-08-22 | Outpatient (CLI) | payer MEDICAID ==
[~2017-08-22] MED LIST changes: +ONDA4TAB13 SL; +OXYC10TA6 PO; +PRILOSEC; +SPIR50TA2 PO
[2017-08-22 12:24] LABS: BASOPHILS # (AUTO) 0.03 x10^3/uL (0-0.1); BASOPHILS % (AUTO) 1 % (0-1); EOSINOPHILS % (AUTO) 2 % (1-7); LYMPHOCYTES % (AUTO) 16 % (22-44); MD NO; MEAN CORPUSCULAR HEMOGLOBIN 34.8 pg (27.0-34.8); MEAN CORPUSCULAR HGB CONC 34.1 g/dL (32.4-35.8); MEAN CORPUSCULAR VOLUME 102.2 fL (80-100); MEAN PLATELET VOLUME 7.9 fL (7.4-10.4); MONOCYTES # (AUTO) 0.59 x10^3/uL (0.2-0.8); MONOCYTES % (AUTO) 9 % (2-9); NEUTROPHILS % (AUTO) 73 % (42-75); PLATELET COUNT 298 x10^3/uL (130-400); RED BLOOD COUNT 3.17 x10^6/uL (3.82-5.3); RED CELL DISTRIBUTION WIDTH 14.6 % (9.6-15.2)
[2017-08-22 12:39] LABS: CHLORIDE 106 mmol/L (98-107)
[2017-08-22 12:58] LABS: ALANINE AMINOTRANSFERASE 66 U/L (12-78); ALBUMIN 3.3 g/dL (3.4-5.0); ALKALINE PHOSPHATASE 655 U/L (45-117); ANION GAP 7 mmol/L (5-15); BILIRUBIN,TOTAL 3.4 mg/dL (0.2-1.0); CALCIUM 9.1 mg/dL (8.5-10.1); CREATININE 0.61 mg/dL (0.55-1.02)
== END | disposition home or self-care (01) ==
LOC: STAR 11:10
PROVIDERS: ATTEND Internal Medicine Gastroenterology
DX: Z01.818 Encounter for other preprocedural examination (principal); K83.1 Obstruction of bile duct; R00.1 Bradycardia, unspecified
CPT/HCPCS: 36415; 80053; 85025; 93005

== ENCOUNTER 2017-08-28 12:55 | Day surgery (SDC) | payer MEDICAID ==
[~2017-08-28] VITALS: Ht 172.7 cm; Wt 59.7 kg
[2017-08-28 13:34] VITALS: BP 104/69
[2017-08-28] MEDS ORDERED: LIDOCAINE-MPF 1%, 2ML ONE (13:48)
[2017-08-28] MEDS ORDERED: PIPERACILLIN/TAZO/PMX 3.375GM 50 ML ONE (14:56)
[2017-08-28] MEDS ORDERED: FENTANYL PF 100 MCG/2ML ONE (14:58)
[2017-08-28] MEDS ORDERED: ROCURONIUM 10 MG/ML,10ML ONE (15:00)
[2017-08-28] MEDS ORDERED: ONDANSETRON ODT 8 MG ONE (15:00)
[2017-08-28] MEDS ORDERED: DEXAMETHASONE 4 MG/ML, 1ML ONE (15:00)
[2017-08-28] MEDS ORDERED: SUCCINYLCHOLINE 20 MG/ML, 10ML ONE (15:00)
[2017-08-28] MEDS ORDERED: PROPOFOL 10 MG/ML, 20ML ONE (15:00)
[2017-08-28] MEDS ORDERED: OMNIPAQUE 350 MG/ML, 50 ML BOTTLE IV ONE (15:20)
[2017-08-28] MEDS ORDERED: hydrALAzine 20 MG/ML, 1ML IV PRN (15:30)
[2017-08-28] MEDS ORDERED: ALBUTEROL SULFATE 2.5 MG/3 ML NPPB PRN (15:30)
[2017-08-28] MEDS ORDERED: OXYcodone 5 MG/5 ML ORAL.SOL UDC PO PRN (15:30)
[2017-08-28] MEDS ORDERED: morphine SULFATE 10 MG/ML, 1ML IV PRN (15:30)
[2017-08-28] MEDS ORDERED: MIDAZOLAM 1 MG/ML, 2ML IV PRN (15:30)
[2017-08-28] MEDS ORDERED: LABETALOL 5MG/ML, 20ML IV PRN (15:30)
[2017-08-28] MEDS ORDERED: MEPERIDINE/PF 25MG/0.5ML IVPush PRN (15:30)
[2017-08-28] MEDS ORDERED: FENTANYL PF 100 MCG/2ML IV PRN (15:30)
[2017-08-28] MEDS ORDERED: ONDANSETRON 2MG/ML, 2ML IVPush PRN (15:30)
[2017-08-28] MEDS ORDERED: PROMETHAZINE 12.5 MG SUPP PR PRN (15:30)
[2017-08-28] MEDS ORDERED: INDOMETHACIN 50 MG SUPP.RECT ONE (15:47)
[2017-08-28] MEDS ORDERED: INDOMETHACIN 50 MG SUPP.RECT PR ONE (16:00)
== END 2017-08-28 17:25 | disposition home or self-care (01) ==
LOC: OUT 12:55
PROVIDERS: ATTEND Internal Medicine Gastroenterology
DX: K80.50 Calculus of bile duct without cholangitis or cholecystitis without obstruction (principal); K83.1 Obstruction of bile duct; F41.9 Anxiety disorder, unspecified; F32.9 Major depressive disorder, single episode, unspecified; K21.9 Gastro-esophageal reflux disease without esophagitis; Z98.890 Other specified postprocedural states; Z72.89 Other problems related to lifestyle
CPT/HCPCS: 43264; 43276; 74328; C1769; C1876; J0330; J1100; J2543; J2704; J3010; Q0162; Q9967

== ENCOUNTER 2017-08-29 07:39 | Inpatient (IN) | payer MEDICAID ==
[~2017-08-29] VITALS: Ht 172.7 cm; Wt 59.6 kg
[2017-08-29] MEDS ORDERED: PROMETHAZINE 25 MG/ML, 1ML ONE (08:22)
[2017-08-29] MEDS ORDERED: MORPHINE SULFATE 4 MG/ML, 1ML ONE ×2 (08:23→09:22)
[2017-08-29] MEDS: MORPHINE SULFATE 4 MG/ML, 1ML IVPush PRN ×2 (08:24→09:23)
[2017-08-29] MEDS ORDERED: SODIUM CHLORIDE 0.9% 1,000ML IVBOLUS ONE (08:30)
[2017-08-29] MEDS ORDERED: PROMETHAZINE 25 MG/ML, 1ML IM ONE (08:30)
[2017-08-29] MEDS ORDERED: SODIUM CHLORIDE FLUSH 10ML SYR IVF ONE (08:30)
[2017-08-29 08:43] LABS: CULTURE INDICATED? YES; MICROSCOPIC INDICATED
[2017-08-29 08:45] LABS: ALANINE AMINOTRANSFERASE 60 U/L (12-78); ALBUMIN 3.6 g/dL (3.4-5.0); ANION GAP 12 mmol/L (5-15); CALCIUM 9.3 mg/dL (8.5-10.1); CHLORIDE 101 mmol/L (98-107)
[2017-08-29 08:47] LABS: ALKALINE PHOSPHATASE 706 U/L (45-117); BILIRUBIN,TOTAL 5.7 mg/dL (0.2-1.0); TOTAL PROTEIN 7.9 g/dL (6.4-8.2)
[2017-08-29 08:58] LABS: BASOPHILS # (AUTO) 0.03 x10^3/uL (0-0.1); BASOPHILS % (AUTO) 0 % (0-1); EOSINOPHILS % (AUTO) 0 % (1-7); LYMPHOCYTES # (AUTO) 0.67 x10^3/uL (1-3.4); LYMPHOCYTES % (AUTO) 8 % (22-44); MD NO; MEAN CORPUSCULAR HEMOGLOBIN 34.7 pg (27.0-34.8); MEAN CORPUSCULAR HGB CONC 34.7 g/dL (32.4-35.8); MEAN CORPUSCULAR VOLUME 100.1 fL (80-100); MEAN PLATELET VOLUME 8.8 fL (7.4-10.4); MONOCYTES % (AUTO) 11 % (2-9); NEUTROPHILS # (AUTO) 7.17 x10^3/uL (1.8-6.8); NEUTROPHILS % (AUTO) 81 % (42-75); PLATELET COUNT 378 x10^3/uL (130-400); RED CELL DISTRIBUTION WIDTH 13.5 % (9.6-15.2)
[2017-08-29 09:36] LABS: BILIRUBIN, DIRECT 4.1 mg/dL (0.1-0.2)
[2017-08-29 09:42] LABS: BILIRUBIN,INDIRECT 1.6 mg/dL (0.0-2.0); BILIRUBIN,TOTAL 5.7 mg/dL (0.2-1.0)
[2017-08-29 10:40] VITALS: BP 147/65
[2017-08-29] MEDS ORDERED: LACTATED RINGERS 1,000 ML IV SCH (11:00)
[2017-08-29] MEDS ORDERED: IMATINIB 400 MG TABLET PO SCH (11:00)
[2017-08-29] MEDS ORDERED: hydrALAzine 20 MG/ML, 1ML IVPush PRN (11:00)
[2017-08-29] MEDS ORDERED: LEVOTHYROXINE 50 MCG TABLET PO SCH (11:00)
[2017-08-29] MEDS ORDERED: ONDANSETRON 2MG/ML, 2ML IVPush PRN (11:00)
[2017-08-29] MEDS ORDERED: LABETALOL 5MG/ML, 20ML IVPush PRN (11:00)
[2017-08-29] MEDS: HYDROmorphone 2 MG/ML, 1ML IVPush PRN ×5 (11:25→23:35)
[2017-08-29] MEDS: METOCLOPRAMIDE 5 MG/ML, 2ML IVPush PRN (11:25)
[2017-08-29] MEDS: ENOXAPARIN 40 MG/0.4 ML SQ SCH (11:25)
[2017-08-29] MEDS: AMPICILLIN/SULBACTAM 3 GM in SODIUM CHLORIDE 0.9% 100 ML IV SCH ×2 (13:52→20:42)
[2017-08-29] MEDS: FAMOTIDINE 20 MG/2 ML IVPush SCH ×2 (13:52→20:42)
[2017-08-29] MEDS: PROMETHAZINE 25 MG/ML, 1ML IM PRN ×3 (14:03→23:43)
[2017-08-29] MEDS: LACTATED RINGERS 1,000 ML IV SCH ×2 (17:34→23:06)
[2017-08-29 19:29] VITALS: BP 148/80
[2017-08-30] MEDS: HYDROmorphone 2 MG/ML, 1ML IVPush PRN ×6 (02:53→20:51)
[2017-08-30 03:01] VITALS: BP 147/84
[2017-08-30] MEDS: LACTATED RINGERS 1,000 ML IV SCH ×3 (03:58→20:51)
[2017-08-30] MEDS: PROMETHAZINE 25 MG/ML, 1ML IM PRN (04:06)
[2017-08-30 04:27] LABS: BASOPHILS # (AUTO) 0.05 x10^3/uL (0-0.1); BASOPHILS % (AUTO) 0 % (0-1); EOSINOPHILS # (AUTO) 0.01 x10^3/uL (0-0.4); EOSINOPHILS % (AUTO) 0 % (1-7); LYMPHOCYTES # (AUTO) 0.84 x10^3/uL (1-3.4); LYMPHOCYTES % (AUTO) 5 % (22-44); MD NO; MEAN CORPUSCULAR HEMOGLOBIN 34.6 pg (27.0-34.8); MEAN CORPUSCULAR HGB CONC 34.2 g/dL (32.4-35.8); MEAN PLATELET VOLUME 8.6 fL (7.4-10.4); MONOCYTES # (AUTO) 1.34 x10^3/uL (0.2-0.8); MONOCYTES % (AUTO) 8 % (2-9); NEUTROPHILS # (AUTO) 15.55 x10^3/uL (1.8-6.8); NEUTROPHILS % (AUTO) 87 % (42-75); PLATELET COUNT 276 x10^3/uL (130-400); RED BLOOD COUNT 3.24 x10^6/uL (3.82-5.3); RED CELL DISTRIBUTION WIDTH 13.5 % (9.6-15.2)
[2017-08-30 04:32] LABS: ANION GAP 7 mmol/L (5-15); CALCIUM 8.8 mg/dL (8.5-10.1); CHLORIDE 104 mmol/L (98-107)
[2017-08-30 04:34] LABS: CREATININE 0.39 mg/dL (0.55-1.02)
[2017-08-30] MEDS: AMPICILLIN/SULBACTAM 3 GM in SODIUM CHLORIDE 0.9% 100 ML IV SCH (05:11)
[2017-08-30] MEDS: LEVOTHYROXINE 50 MCG TABLET PO SCH (06:21)
[2017-08-30 07:11] VITALS: BP 153/84
[2017-08-30] MEDS: FAMOTIDINE 20 MG/2 ML IVPush SCH ×2 (07:11→20:50)
[2017-08-30] MEDS ORDERED: MAGNESIUM SULFATE PMX 4GM/100M 100 ML IV ONE (08:00)
[2017-08-30] MEDS ORDERED: MEROPENEM 1 GM in SODIUM CHLORIDE 0.9% 100 ML IV SCH (08:00)
[2017-08-30 08:25] LABS: ALBUMIN 3.1 g/dL (3.4-5.0)
[2017-08-30 08:27] LABS: BILIRUBIN,INDIRECT 1.1 mg/dL (0.0-2.0); BILIRUBIN,TOTAL 4.1 mg/dL (0.2-1.0); TOTAL PROTEIN 6.7 g/dL (6.4-8.2)
[2017-08-30] MEDS: ERTAPENEM 1 GM in SODIUM CHLORIDE 0.9% 50 ML IV SCH (08:45)
[2017-08-30] MEDS: METOCLOPRAMIDE 5 MG/ML, 2ML IVPush PRN (08:58)
[2017-08-30] MEDS ORDERED: IMATINIB 100 MG TABLET PO SCH (09:00)
[2017-08-30] MEDS: ENOXAPARIN 40 MG/0.4 ML SQ SCH (11:55)
[2017-08-30 11:56] VITALS: BP 158/78
[2017-08-30 19:13] VITALS: BP 150/79
[2017-08-31] MEDS: HYDROmorphone 2 MG/ML, 1ML IVPush PRN ×5 (00:09→21:16)
[2017-08-31] MEDS: LACTATED RINGERS 1,000 ML IV SCH ×3 (00:09→16:12)
[2017-08-31 01:20] VITALS: BP 157/88
[2017-08-31 04:35] LABS: MEAN CORPUSCULAR HEMOGLOBIN 34.6 pg (27.0-34.8); MEAN CORPUSCULAR HGB CONC 34.8 g/dL (32.4-35.8); MEAN CORPUSCULAR VOLUME 99.5 fL (80-100); MEAN PLATELET VOLUME 8.5 fL (7.4-10.4); PLATELET COUNT 238 x10^3/uL (130-400); RED BLOOD COUNT 2.93 x10^6/uL (3.82-5.3); RED CELL DISTRIBUTION WIDTH 12.9 % (9.6-15.2)
[2017-08-31 04:40] LABS: ALBUMIN 2.8 g/dL (3.4-5.0); ANION GAP 7 mmol/L (5-15); CALCIUM 8.6 mg/dL (8.5-10.1); CHLORIDE 100 mmol/L (98-107)
[2017-08-31 04:44] LABS: ALANINE AMINOTRANSFERASE 53 U/L (12-78); ALKALINE PHOSPHATASE 473 U/L (45-117); BILIRUBIN,TOTAL 3.3 mg/dL (0.2-1.0); CREATININE 0.31 mg/dL (0.55-1.02); TOTAL PROTEIN 6.2 g/dL (6.4-8.2)
[2017-08-31 05:42] LABS: BASOPHILS # (AUTO) 0.07 x10^3/uL (0-0.1); BASOPHILS % (AUTO) 1 % (0-1); EOSINOPHILS # (AUTO) 0.01 x10^3/uL (0-0.4); EOSINOPHILS % (AUTO) 0 % (1-7); LYMPHOCYTES # (AUTO) 0.86 x10^3/uL (1-3.4); LYMPHOCYTES % (AUTO) 6 % (22-44); MD SCAN; MONOCYTES # (AUTO) 1.84 x10^3/uL (0.2-0.8); MONOCYTES % (AUTO) 14 % (2-9); NEUTROPHILS # (AUTO) 10.83 x10^3/uL (1.8-6.8); NEUTROPHILS % (AUTO) 80 % (42-75)
[2017-08-31] MEDS: LEVOTHYROXINE 50 MCG TABLET PO SCH (06:40)
[2017-08-31 07:46] VITALS: BP 150/83
[2017-08-31] MEDS: FAMOTIDINE 20 MG/2 ML IVPush SCH (09:09)
[2017-08-31] MEDS: POTASSIUM CHLORIDE 20 MEQ PACKET PO SCH ×3 (09:09→18:21)
[2017-08-31] MEDS: ERTAPENEM 1 GM in SODIUM CHLORIDE 0.9% 50 ML IV SCH (09:09)
[2017-08-31] MEDS: ENOXAPARIN 40 MG/0.4 ML SQ SCH (10:20)
[2017-08-31 13:25] VITALS: BP 147/80
[2017-08-31] MEDS: OXYcodone/APAP 10/325MG TABLET PO PRN ×3 (13:58→22:42)
[2017-08-31 19:14] VITALS: BP 152/84
[2017-08-31] MEDS: FAMOTIDINE 20 MG TABLET PO SCH (21:16)
[2017-08-31] MEDS: PROMETHAZINE 25 MG/ML, 1ML IM PRN (21:16)
[2017-09-01 01:33] VITALS: BP 130/80
[2017-09-01] MEDS: LACTATED RINGERS 1,000 ML IV SCH ×3 (01:38→19:43)
[2017-09-01 04:24] LABS: BASOPHILS # (AUTO) 0.04 x10^3/uL (0-0.1); BASOPHILS % (AUTO) 0 % (0-1); EOSINOPHILS # (AUTO) 0.05 x10^3/uL (0-0.4); EOSINOPHILS % (AUTO) 1 % (1-7); LYMPHOCYTES # (AUTO) 1.49 x10^3/uL (1-3.4); LYMPHOCYTES % (AUTO) 15 % (22-44); MD NO; MEAN CORPUSCULAR HEMOGLOBIN 34.8 pg (27.0-34.8); MEAN CORPUSCULAR HGB CONC 34.8 g/dL (32.4-35.8); MEAN PLATELET VOLUME 8.4 fL (7.4-10.4); MONOCYTES # (AUTO) 1.31 x10^3/uL (0.2-0.8); MONOCYTES % (AUTO) 13 % (2-9); NEUTROPHILS # (AUTO) 6.98 x10^3/uL (1.8-6.8); NEUTROPHILS % (AUTO) 71 % (42-75); PLATELET COUNT 271 x10^3/uL (130-400); RED BLOOD COUNT 2.99 x10^6/uL (3.82-5.3); RED CELL DISTRIBUTION WIDTH 12.7 % (9.6-15.2)
[2017-09-01 04:37] LABS: ALBUMIN 2.8 g/dL (3.4-5.0); ANION GAP 6 mmol/L (5-15); CALCIUM 8.6 mg/dL (8.5-10.1); CHLORIDE 102 mmol/L (98-107)
[2017-09-01 04:41] LABS: ALANINE AMINOTRANSFERASE 45 U/L (12-78); ALKALINE PHOSPHATASE 462 U/L (45-117); BILIRUBIN,TOTAL 2.7 mg/dL (0.2-1.0); CREATININE 0.43 mg/dL (0.55-1.02); TOTAL PROTEIN 6.4 g/dL (6.4-8.2)
[2017-09-01] MEDS: OXYcodone/APAP 10/325MG TABLET PO PRN ×5 (05:33→23:46)
[2017-09-01] MEDS: LEVOTHYROXINE 50 MCG TABLET PO SCH (05:34)
[2017-09-01 06:57] VITALS: BP 145/85
[2017-09-01] MEDS: POTASSIUM CHLORIDE 20 MEQ PACKET PO SCH ×3 (08:36→17:54)
[2017-09-01] MEDS: FAMOTIDINE 20 MG TABLET PO SCH ×2 (08:36→19:43)
[2017-09-01] MEDS: ERTAPENEM 1 GM in SODIUM CHLORIDE 0.9% 50 ML IV SCH (08:36)
[2017-09-01] MEDS ORDERED: MAGNESIUM SULFATE PMX 4GM/100M 100 ML IV ONE (10:00)
[2017-09-01] MEDS ORDERED: BISACODYL 10 MG SUPP PR PRN (10:30)
[2017-09-01] MEDS: ENOXAPARIN 40 MG/0.4 ML SQ SCH (11:04)
[2017-09-01] MEDS: DOCUSATE 100 MG CAPSULE PO SCH ×2 (11:12→19:43)
[2017-09-01 12:00] VITALS: BP 147/89
[2017-09-01] MEDS: METOCLOPRAMIDE 5 MG/ML, 2ML IVPush PRN (18:03)
[2017-09-01 21:16] VITALS: BP 162/80
[2017-09-02 00:50] VITALS: BP 148/83
[2017-09-02] MEDS: LACTATED RINGERS 1,000 ML IV SCH (03:00)
[2017-09-02] MEDS: OXYcodone/APAP 10/325MG TABLET PO PRN ×5 (04:41→22:43)
[2017-09-02 05:05] LABS: BASOPHILS # (AUTO) 0.03 x10^3/uL (0-0.1); BASOPHILS % (AUTO) 0 % (0-1); EOSINOPHILS # (AUTO) 0.11 x10^3/uL (0-0.4); EOSINOPHILS % (AUTO) 1 % (1-7); LYMPHOCYTES % (AUTO) 17 % (22-44); MD NO; MEAN CORPUSCULAR HEMOGLOBIN 33.9 pg (27.0-34.8); MEAN CORPUSCULAR HGB CONC 34.2 g/dL (32.4-35.8); MEAN CORPUSCULAR VOLUME 99.1 fL (80-100); MEAN PLATELET VOLUME 8.1 fL (7.4-10.4); MONOCYTES # (AUTO) 1.05 x10^3/uL (0.2-0.8); MONOCYTES % (AUTO) 13 % (2-9); NEUTROPHILS # (AUTO) 5.36 x10^3/uL (1.8-6.8); NEUTROPHILS % (AUTO) 68 % (42-75); PLATELET COUNT 279 x10^3/uL (130-400); RED BLOOD COUNT 3.05 x10^6/uL (3.82-5.3); RED CELL DISTRIBUTION WIDTH 12.8 % (9.6-15.2)
[2017-09-02 05:13] LABS: ALBUMIN 2.8 g/dL (3.4-5.0); ANION GAP 6 mmol/L (5-15); CALCIUM 8.7 mg/dL (8.5-10.1); CHLORIDE 105 mmol/L (98-107)
[2017-09-02 05:18] LABS: ALANINE AMINOTRANSFERASE 41 U/L (12-78); ALKALINE PHOSPHATASE 444 U/L (45-117); BILIRUBIN,TOTAL 2.1 mg/dL (0.2-1.0); CREATININE 0.38 mg/dL (0.55-1.02); TOTAL PROTEIN 6.2 g/dL (6.4-8.2)
[2017-09-02] MEDS: LEVOTHYROXINE 50 MCG TABLET PO SCH (06:13)
[2017-09-02 07:35] VITALS: BP 159/88
[2017-09-02] MEDS: ERTAPENEM 1 GM in SODIUM CHLORIDE 0.9% 50 ML IV SCH (08:32)
[2017-09-02] MEDS: DOCUSATE 100 MG CAPSULE PO SCH ×2 (08:32→20:52)
[2017-09-02] MEDS: FAMOTIDINE 20 MG TABLET PO SCH ×2 (08:32→20:52)
[2017-09-02] MEDS: POTASSIUM CHLORIDE 20 MEQ PACKET PO SCH ×3 (08:41→17:07)
[2017-09-02] MEDS ORDERED: BISACODYL 5 MG EC TABLET PO PRN (10:00)
[2017-09-02] MEDS: ENOXAPARIN 40 MG/0.4 ML SQ SCH (11:49)
[2017-09-02 13:56] VITALS: BP 138/79
[2017-09-02 19:10] VITALS: BP 153/83
[2017-09-03 02:29] VITALS: BP 172/93
[2017-09-03] MEDS: OXYcodone/APAP 10/325MG TABLET PO PRN ×4 (02:45→15:55)
[2017-09-03 04:41] LABS: BASOPHILS # (AUTO) 0.08 x10^3/uL (0-0.1); BASOPHILS % (AUTO) 1 % (0-1); EOSINOPHILS # (AUTO) 0.26 x10^3/uL (0-0.4); EOSINOPHILS % (AUTO) 4 % (1-7); LYMPHOCYTES # (AUTO) 1.51 x10^3/uL (1-3.4); LYMPHOCYTES % (AUTO) 22 % (22-44); MD NO; MEAN CORPUSCULAR HEMOGLOBIN 33.7 pg (27.0-34.8); MEAN CORPUSCULAR HGB CONC 33.9 g/dL (32.4-35.8); MEAN CORPUSCULAR VOLUME 99.4 fL (80-100); MEAN PLATELET VOLUME 7.8 fL (7.4-10.4); MONOCYTES # (AUTO) 1.07 x10^3/uL (0.2-0.8); MONOCYTES % (AUTO) 16 % (2-9); NEUTROPHILS # (AUTO) 3.96 x10^3/uL (1.8-6.8); NEUTROPHILS % (AUTO) 58 % (42-75); PLATELET COUNT 384 x10^3/uL (130-400); RED BLOOD COUNT 3.28 x10^6/uL (3.82-5.3); RED CELL DISTRIBUTION WIDTH 13.2 % (9.6-15.2)
[2017-09-03 04:50] LABS: ALANINE AMINOTRANSFERASE 45 U/L (12-78); ALBUMIN 2.9 g/dL (3.4-5.0); ANION GAP 7 mmol/L (5-15); CALCIUM 8.7 mg/dL (8.5-10.1); CHLORIDE 107 mmol/L (98-107)
[2017-09-03 04:53] LABS: ALKALINE PHOSPHATASE 469 U/L (45-117); CREATININE 0.42 mg/dL (0.55-1.02); TOTAL PROTEIN 6.6 g/dL (6.4-8.2)
[2017-09-03 05:55] VITALS: BP 129/78
[2017-09-03] MEDS: LEVOTHYROXINE 50 MCG TABLET PO SCH (05:56)
[2017-09-03 07:16] VITALS: BP 125/82
[2017-09-03] MEDS: POTASSIUM CHLORIDE 20 MEQ PACKET PO SCH ×3 (08:19→15:55)
[2017-09-03] MEDS: FAMOTIDINE 20 MG TABLET PO SCH (08:19)
[2017-09-03] MEDS: DOCUSATE 100 MG CAPSULE PO SCH (09:26)
[2017-09-03] MEDS: ERTAPENEM 1 GM in SODIUM CHLORIDE 0.9% 50 ML IV SCH (09:26)
[2017-09-03] MEDS: ENOXAPARIN 40 MG/0.4 ML SQ SCH (11:53)
[2017-09-03] MEDS: METOCLOPRAMIDE 5 MG/ML, 2ML IVPush PRN (12:26)
[2017-09-03 13:31] VITALS: BP 120/77
[2017-09-03] MEDS ORDERED: LEVO750T26 PO (14:35)
== END 2017-09-03 16:30 | disposition home or self-care (01) | DRG 542 ==
LOC: ED 08:23 → EDIP 09:16 → 3NW 10:56
PROVIDERS: ADMIT Internal Medicine Pulmonary Disease; ATTEND Internal Medicine Pulmonary Disease
DX: C49.A0 Gastrointestinal stromal tumor, unspecified site (principal); K85.10 Biliary acute pancreatitis without necrosis or infection; C78.7 Secondary malignant neoplasm of liver and intrahepatic bile duct; E44.0 Moderate protein-calorie malnutrition; E83.42 Hypomagnesemia; K80.51 Calculus of bile duct without cholangitis or cholecystitis with obstruction; D64.9 Anemia, unspecified; E03.9 Hypothyroidism, unspecified; E87.6 Hypokalemia; G89.29 Other chronic pain; Z68.20 Body mass index [BMI] 20.0-20.9, adult; Z90.49 Acquired absence of other specified parts of digestive tract; Z82.49 Family history of ischemic heart disease and other diseases of the circulatory system; Z80.1 Family history of malignant neoplasm of trachea, bronchus and lung; Z83.6 Family history of other diseases of the respiratory system
CPT/HCPCS: 36415; 80048; 80053; 80076; 81001; 82247; 82248; 83690; 83735; 85025; 87086; 96361; 96372; 96374; 96376; J0295; J1170; J1335; J1650; J2550; J0360; J2765; J3475; J7030; J7120; S0028

== ENCOUNTER 2018-03-31 06:31 | Inpatient (IN) | payer MEDICAID ==
[~2018-03-31] VITALS: Ht 172.7 cm; Wt 62.2 kg
[~2018-03-31 06:31] MED LIST changes: +LEVO750T26 PO; -SPIR50TA2 PO; +SPIR50TA4 PO
[2018-03-31] MEDS ORDERED: ONDANSETRON 2MG/ML, 2ML IVPush ONE (07:00)
[2018-03-31] MEDS ORDERED: SODIUM CHLORIDE 0.9% 1,000ML IVBOLUS ONE (07:00)
[2018-03-31] MEDS ORDERED: MORPHINE SULFATE 4 MG/ML, 1ML ONE ×2 (07:09→10:51)
[2018-03-31] MEDS ORDERED: ONDANSETRON 2MG/ML, 2ML ONE ×2 (07:09→10:51)
[2018-03-31] MEDS ORDERED: HYDROmorphone 2 MG/ML, 1ML ONE ×3 (07:16→08:34)
[2018-03-31] MEDS: HYDROmorphone 2 MG/ML, 1ML IVPush PRN ×6 (07:18→20:11)
[2018-03-31 07:22] LABS: BASOPHILS % (AUTO) 1 % (0-1); EOSINOPHILS # (AUTO) 0.02 x10^3/uL (0-0.4); EOSINOPHILS % (AUTO) 0 % (1-7); LYMPHOCYTES # (AUTO) 0.89 x10^3/uL (1-3.4); LYMPHOCYTES % (AUTO) 5 % (22-44); MD NO; MEAN CORPUSCULAR HGB CONC 34.3 g/dL (32.4-35.8); MEAN PLATELET VOLUME 7.7 fL (7.4-10.4); MONOCYTES # (AUTO) 0.33 x10^3/uL (0.2-0.8); MONOCYTES % (AUTO) 2 % (2-9); NEUTROPHILS # (AUTO) 15.11 x10^3/uL (1.8-6.8); NEUTROPHILS % (AUTO) 92 % (42-75); PLATELET COUNT 337 x10^3/uL (130-400); RED BLOOD COUNT 3.61 x10^6/uL (3.82-5.3); RED CELL DISTRIBUTION WIDTH 14.7 % (9.6-15.2)
[2018-03-31 07:25] LABS: ALANINE AMINOTRANSFERASE 61 U/L (12-78); CALCIUM 9.2 mg/dL (8.5-10.1); CHLORIDE 104 mmol/L (98-107); CREATININE 0.85 mg/dL (0.55-1.02)
[2018-03-31 07:27] LABS: ALKALINE PHOSPHATASE 546 U/L (45-117); BILIRUBIN,TOTAL 5.7 mg/dL (0.2-1.0); TOTAL PROTEIN 7.9 g/dL (6.4-8.2)
[2018-03-31 07:36] LABS: ANION GAP 10 mmol/L (5-15)
[2018-03-31] MEDS ORDERED: POTASSIUM CHLORIDE 20 MEQ TAB.ER.PRT ONE (07:55)
[2018-03-31] MEDS ORDERED: POTASSIUM CHLORIDE 20 MEQ TAB.ER.PRT PO ONE (08:00)
[2018-03-31] MEDS ORDERED: POTASSIUM CHLORIDE 40 MEQ in SODIUM CHLORIDE 0.9% 500 ML IV ONE (08:00)
[2018-03-31] MEDS ORDERED: MAGNESIUM SULFATE 1 GM in SODIUM CHLORIDE 0.9% 50 ML IV ONE (09:00)
[2018-03-31] MEDS ORDERED: SODIUM CHLORIDE 0.9% 1,000 ML IV ONE (09:33)
[2018-03-31] MEDS ORDERED: SODIUM CHLORIDE FLUSH 10ML SYR IVF PRN (10:00)
[2018-03-31] MEDS ORDERED: MORPHINE SULFATE 4 MG/ML, 1ML IVPush PRN (10:00)
[2018-03-31] MEDS ORDERED: HYDROmorphone 1 MG/ML, 1ML IVPush PRN (10:00)
[2018-03-31] MEDS ORDERED: OMEP20TA62 PO (10:24)
[2018-03-31] MEDS ORDERED: IMAT400T PO (10:24)
[2018-03-31] MEDS ORDERED: URSO500T8 PO (10:24)
[2018-03-31] MEDS ORDERED: DIPHENHYDRAMINE 50 MG/ML, 1ML IVPush ONE (11:30)
[2018-03-31 12:21] VITALS: BP 148/97
[2018-03-31 12:28] LABS: MICROSCOPIC INDICATED
[2018-03-31] MEDS ORDERED: MAGNESIUM SULFATE PMX 2GM/50ML 50 ML IV ONE (12:30)
[2018-03-31 12:38] LABS: CULTURE INDICATED? NO
[2018-03-31] MEDS: OXYcodone IR 5MG TABLET PO PRN ×2 (13:15→18:04)
[2018-03-31] MEDS: NS + 20MEQ KCL 1,000 ML IV SCH (14:17)
[2018-03-31] MEDS: POLYETHYLENE GLYCOL 17 GM PACKET PO SCH ×2 (15:00→21:59)
[2018-03-31] MEDS: ONDANSETRON 2MG/ML, 2ML IVPush PRN ×2 (15:38→21:59)
[2018-03-31] MEDS ORDERED: BISACODYL 10 MG SUPP PR PRN (17:00)
[2018-03-31] MEDS: PIPERACILLIN/TAZO/PMX 3.375GM 50 ML IV SCH (17:27)
[2018-03-31 20:43] VITALS: BP 120/74
[2018-03-31] MEDS ORDERED: OMNIPAQUE 350 MG/ML, 100ML BOTTLE ONE (21:52)
[2018-04-01] MEDS: OXYcodone IR 5MG TABLET PO PRN ×5 (00:05→18:34)
[2018-04-01] MEDS: PIPERACILLIN/TAZO/PMX 3.375GM 50 ML IV SCH ×3 (01:25→17:19)
[2018-04-01 01:50] VITALS: BP 98/56
[2018-04-01] MEDS: NS + 20MEQ KCL 1,000 ML IV SCH ×3 (03:12→22:51)
[2018-04-01] MEDS: ONDANSETRON 2MG/ML, 2ML IVPush PRN ×2 (04:51→18:34)
[2018-04-01 06:15] LABS: CALCIUM 8.3 mg/dL (8.5-10.1); CHLORIDE 104 mmol/L (98-107)
[2018-04-01 06:16] LABS: MEAN CORPUSCULAR VOLUME 99.9 fL (80-100); MEAN PLATELET VOLUME 8.1 fL (7.4-10.4); PLATELET COUNT 186 x10^3/uL (130-400); RED BLOOD COUNT 3.07 x10^6/uL (3.82-5.3); RED CELL DISTRIBUTION WIDTH 14.8 % (9.6-15.2)
[2018-04-01 06:20] LABS: ALANINE AMINOTRANSFERASE 52 U/L (12-78); ALBUMIN 2.9 g/dL (3.4-5.0); ALKALINE PHOSPHATASE 405 U/L (45-117); ANION GAP 10 mmol/L (5-15); BILIRUBIN, DIRECT 7.8 mg/dL (0.1-0.2); BILIRUBIN,INDIRECT 1.2 mg/dL (0.0-2.0); CREATININE 0.55 mg/dL (0.55-1.02); TOTAL PROTEIN 6.2 g/dL (6.4-8.2)
[2018-04-01] MEDS: HYDROmorphone 2 MG/ML, 1ML IVPush PRN ×3 (06:39→20:12)
[2018-04-01 07:44] VITALS: BP 101/64
[2018-04-01 08:11] LABS: BASOPHILS % (AUTO) 0 % (0-1); EOSINOPHILS % (AUTO) 0 % (1-7); LYMPHOCYTES # (AUTO) 0.22 x10^3/uL (1-3.4); LYMPHOCYTES % (AUTO) 2 % (22-44); MD SCAN; MONOCYTES # (AUTO) 0.04 x10^3/uL (0.2-0.8); MONOCYTES % (AUTO) 0 % (2-9); NEUTROPHILS # (AUTO) 9.26 x10^3/uL (1.8-6.8); NEUTROPHILS % (AUTO) 97 % (42-75)
[2018-04-01] MEDS: POLYETHYLENE GLYCOL 17 GM PACKET PO SCH ×2 (08:15→20:12)
[2018-04-01] MEDS: ACETAMINOPHEN 325 MG TABLET PO PRN ×2 (08:21→20:12)
[2018-04-01] MEDS ORDERED: MOVIPREP POWDER 1 PREP KIT PO ONE ×2 (14:30→20:00)
[2018-04-01] MEDS: ENOXAPARIN 40 MG/0.4 ML SQ SCH (17:00)
[2018-04-01 18:48] VITALS: BP 108/72
[2018-04-02] MEDS: HYDROmorphone 2 MG/ML, 1ML IVPush PRN ×4 (00:16→19:16)
[2018-04-02 01:02] VITALS: BP 105/69
[2018-04-02] MEDS: PIPERACILLIN/TAZO/PMX 3.375GM 50 ML IV SCH ×3 (01:25→18:08)
[2018-04-02] MEDS: OXYcodone IR 5MG TABLET PO PRN ×4 (04:17→23:26)
[2018-04-02] MEDS: ONDANSETRON 2MG/ML, 2ML IVPush PRN (04:42)
[2018-04-02 06:12] LABS: ALBUMIN 2.7 g/dL (3.4-5.0); ANION GAP 6 mmol/L (5-15); CHLORIDE 108 mmol/L (98-107)
[2018-04-02 06:16] LABS: ALANINE AMINOTRANSFERASE 44 U/L (12-78); ALKALINE PHOSPHATASE 322 U/L (45-117); BILIRUBIN,TOTAL 7.9 mg/dL (0.2-1.0); CREATININE 0.44 mg/dL (0.55-1.02); TOTAL PROTEIN 5.8 g/dL (6.4-8.2)
[2018-04-02] MEDS ORDERED: MIDAZOLAM 1 MG/ML, 2ML ONE (06:49)
[2018-04-02] MEDS ORDERED: FENTANYL PF 250 MCG/5ML ONE (06:50)
[2018-04-02] MEDS ORDERED: OMNIPAQUE 350 MG/ML, 50 ML BOTTLE ONE (07:46)
[2018-04-02] MEDS ORDERED: HYDROmorphone 2 MG/ML, 1ML IVPush PRN (08:00)
[2018-04-02] MEDS ORDERED: LABETALOL 5MG/ML, 20ML IV PRN (08:00)
[2018-04-02] MEDS ORDERED: MEPERIDINE/PF 25MG/0.5ML IVPush PRN (08:00)
[2018-04-02] MEDS ORDERED: OXYcodone 5 MG/5 ML ORAL.SOL UDC PO PRN (08:00)
[2018-04-02] MEDS ORDERED: HALOPERIDOL 5 MG/ML IV PRN (08:00)
[2018-04-02] MEDS ORDERED: PROMETHAZINE 25 MG/ML, 1ML IV PRN (08:00)
[2018-04-02] MEDS ORDERED: FENTANYL PF 100 MCG/2ML IV PRN (08:00)
[2018-04-02] MEDS ORDERED: hydrALAzine 20 MG/ML, 1ML IV PRN (08:00)
[2018-04-02] MEDS ORDERED: LORazepam 2 MG/ML, 1ML IVPush PRN (08:00)
[2018-04-02 08:36] VITALS: BP 117/70
[2018-04-02] MEDS: POLYETHYLENE GLYCOL 17 GM PACKET PO SCH ×2 (10:37→20:41)
[2018-04-02] MEDS: NS + 20MEQ KCL 1,000 ML IV SCH ×2 (10:37→20:41)
[2018-04-02] MEDS ORDERED: GLYCOPYRROLATE 0.2MG/1ML, 5ML ONE (11:14)
[2018-04-02] MEDS ORDERED: DEXAMETHASONE 4 MG/ML, 1ML ONE (11:14)
[2018-04-02] MEDS ORDERED: ONDANSETRON 2MG/ML, 2ML ONE (11:14)
[2018-04-02] MEDS ORDERED: ROCURONIUM 10MG/ML,5ML ONE (11:14)
[2018-04-02] MEDS ORDERED: NEOSTIGMINE 1 MG/ML, 10ML ONE (11:14)
[2018-04-02] MEDS ORDERED: PROPOFOL 10 MG/ML, 20ML ONE (11:14)
[2018-04-02 13:55] VITALS: BP 129/73
[2018-04-02] MEDS: ENOXAPARIN 40 MG/0.4 ML SQ SCH (17:14)
[2018-04-02 18:28] VITALS: BP 133/82
[2018-04-03 00:47] VITALS: BP 109/67
[2018-04-03] MEDS: PIPERACILLIN/TAZO/PMX 3.375GM 50 ML IV SCH ×3 (01:12→18:11)
[2018-04-03] MEDS: HYDROmorphone 2 MG/ML, 1ML IVPush PRN ×4 (02:59→21:13)
[2018-04-03 05:43] LABS: ALBUMIN 2.4 g/dL (3.4-5.0); ANION GAP 7 mmol/L (5-15); CALCIUM 9.3 mg/dL (8.5-10.1); CHLORIDE 105 mmol/L (98-107); CREATININE 0.53 mg/dL (0.55-1.02)
[2018-04-03 05:44] LABS: BASOPHILS # (AUTO) 0.07 x10^3/uL (0-0.1); BASOPHILS % (AUTO) 1 % (0-1); EOSINOPHILS % (AUTO) 0 % (1-7); LYMPHOCYTES # (AUTO) 0.85 x10^3/uL (1-3.4); LYMPHOCYTES % (AUTO) 12 % (22-44); MD NO; MEAN CORPUSCULAR HEMOGLOBIN 34.7 pg (27.0-34.8); MEAN CORPUSCULAR HGB CONC 34.8 g/dL (32.4-35.8); MEAN CORPUSCULAR VOLUME 99.6 fL (80-100); MEAN PLATELET VOLUME 8.4 fL (7.4-10.4); MONOCYTES % (AUTO) 10 % (2-9); NEUTROPHILS # (AUTO) 5.53 x10^3/uL (1.8-6.8); NEUTROPHILS % (AUTO) 77 % (42-75); PLATELET COUNT 189 x10^3/uL (130-400); RED BLOOD COUNT 3.02 x10^6/uL (3.82-5.3); RED CELL DISTRIBUTION WIDTH 14.6 % (9.6-15.2)
[2018-04-03 05:51] LABS: ALANINE AMINOTRANSFERASE 44 U/L (12-78); ALKALINE PHOSPHATASE 354 U/L (45-117); BILIRUBIN,TOTAL 7.9 mg/dL (0.2-1.0); TOTAL PROTEIN 5.6 g/dL (6.4-8.2)
[2018-04-03] MEDS: OXYcodone IR 5MG TABLET PO PRN ×3 (05:53→18:09)
[2018-04-03 06:46] VITALS: BP 131/80
[2018-04-03] MEDS: NS + 20MEQ KCL 1,000 ML IV SCH ×2 (07:42→18:11)
[2018-04-03] MEDS: POLYETHYLENE GLYCOL 17 GM PACKET PO SCH ×2 (08:59→21:00)
[2018-04-03] MEDS ORDERED: ONDA4TAB7 PO (13:10)
[2018-04-03] MEDS ORDERED: METR500T PO (13:10)
[2018-04-03] MEDS ORDERED: CEFD300C37 PO (13:10)
[2018-04-03 14:49] VITALS: BP 123/76
[2018-04-03] MEDS: ENOXAPARIN 40 MG/0.4 ML SQ SCH (17:00)
[2018-04-03 19:29] VITALS: BP 133/77
[2018-04-04 00:28] VITALS: BP 119/74
[2018-04-04] MEDS: OXYcodone IR 5MG TABLET PO PRN ×3 (00:38→12:26)
[2018-04-04] MEDS: PIPERACILLIN/TAZO/PMX 3.375GM 50 ML IV SCH ×2 (02:14→09:43)
[2018-04-04] MEDS: HYDROmorphone 2 MG/ML, 1ML IVPush PRN ×2 (04:03→08:42)
[2018-04-04] MEDS: NS + 20MEQ KCL 1,000 ML IV SCH (05:17)
[2018-04-04 06:43] VITALS: BP 115/69
[2018-04-04 08:23] LABS: BASOPHILS # (AUTO) 0.03 x10^3/uL (0-0.1); BASOPHILS % (AUTO) 1 % (0-1); EOSINOPHILS # (AUTO) 0.04 x10^3/uL (0-0.4); EOSINOPHILS % (AUTO) 1 % (1-7); LYMPHOCYTES # (AUTO) 1.23 x10^3/uL (1-3.4); LYMPHOCYTES % (AUTO) 19 % (22-44); MD NO; MEAN CORPUSCULAR HEMOGLOBIN 34.3 pg (27.0-34.8); MEAN CORPUSCULAR HGB CONC 34.9 g/dL (32.4-35.8); MEAN CORPUSCULAR VOLUME 98.3 fL (80-100); MEAN PLATELET VOLUME 7.9 fL (7.4-10.4); MONOCYTES # (AUTO) 0.86 x10^3/uL (0.2-0.8); MONOCYTES % (AUTO) 13 % (2-9); NEUTROPHILS # (AUTO) 4.33 x10^3/uL (1.8-6.8); NEUTROPHILS % (AUTO) 67 % (42-75); PLATELET COUNT 226 x10^3/uL (130-400); RED BLOOD COUNT 3.09 x10^6/uL (3.82-5.3); RED CELL DISTRIBUTION WIDTH 14.7 % (9.6-15.2)
[2018-04-04 08:26] LABS: ALANINE AMINOTRANSFERASE 62 U/L (12-78); ALBUMIN 2.6 g/dL (3.4-5.0); ANION GAP 6 mmol/L (5-15); CALCIUM 8.6 mg/dL (8.5-10.1); CHLORIDE 104 mmol/L (98-107); CREATININE 0.53 mg/dL (0.55-1.02)
[2018-04-04 08:28] LABS: ALKALINE PHOSPHATASE 408 U/L (45-117); BILIRUBIN,TOTAL 8.7 mg/dL (0.2-1.0); TOTAL PROTEIN 5.7 g/dL (6.4-8.2)
[2018-04-04] MEDS: POLYETHYLENE GLYCOL 17 GM PACKET PO SCH (08:42)
== END 2018-04-04 14:21 | disposition home or self-care (01) | DRG 920 ==
LOC: ED 08:22 → 4EST 09:33 → 3NW 10:02 → ED 10:02 → 4WST 11:57
PROVIDERS: ADMIT Internal Medicine; ATTEND Internal Medicine
PROC: 0FC68ZZ Extirpation of Matter from Left Hepatic Duct, Via Natural or Artificial Opening Endoscopic (ICD-10-PCS; 2018-03-31)
PROC: BF111ZZ Fluoroscopy of Biliary and Pancreatic Ducts using Low Osmolar Contrast (ICD-10-PCS; 2018-04-02)
PROC: 0F7C8ZZ Dilation of Ampulla of Vater, Via Natural or Artificial Opening Endoscopic (ICD-10-PCS; 2018-04-02)
PROC: 0F798ZZ Dilation of Common Bile Duct, Via Natural or Artificial Opening Endoscopic (ICD-10-PCS; principal; 2018-04-02 07:00)
DX: T85.590A Other mechanical complication of bile duct prosthesis, initial encounter (principal); C49.A0 Gastrointestinal stromal tumor, unspecified site; K83.09 Other cholangitis; C78.7 Secondary malignant neoplasm of liver and intrahepatic bile duct; E03.9 Hypothyroidism, unspecified; E83.42 Hypomagnesemia; E86.0 Dehydration; E87.6 Hypokalemia; K59.00 Constipation, unspecified; K59.9 Functional intestinal disorder, unspecified; Z80.1 Family history of malignant neoplasm of trachea, bronchus and lung; Z82.49 Family history of ischemic heart disease and other diseases of the circulatory system; Z82.5 Family history of asthma and other chronic lower respiratory diseases; Z85.028 Personal history of other malignant neoplasm of stomach; Y83.8 Other surgical procedures as the cause of abnormal reaction of the patient, or of later complication, without mention of misadventure at the time of the procedure; Y92.89 Other specified places as the place of occurrence of the external cause
CPT/HCPCS: 36415; 74328; 99285; J3490; 74160; 76700; 80053; 81001; 82247; 82248; 83690; 83735; 84100; 84132; 85025; 93005; 96361; 96365; 96366; 96375; G0378; J1100; J1170; J2250; J2405; J2543; J2704; J2710; J3010; J3475; J3480; Q9967; C1725; J1200; J7030; J7040

== ENCOUNTER 2018-08-08 11:50 | Inpatient (IN) | payer MEDICAID ==
[~2018-08-08] VITALS: Ht 172.7 cm; Wt 61.4 kg
[~2018-08-08 11:50] MED LIST changes: +METR500T PO; +OMEP20TA62 PO; +ONDA4TAB7 PO; +URSO500T8 PO
--- NOTE | 2018-08-08 12:24 | NUR ---
THIS IS A 53 YEAR OLD FEMALE WHO HAS HX OF PANCREATIC AND LIVER CA, C/O OF 3 DAYS OF N/V AND ABD PAIN. FAMILY AT BS
[2018-08-08] MEDS ORDERED: FENT1PAT74 TP (12:26)
[2018-08-08] MEDS ORDERED: ONDANSETRON 2MG/ML, 2ML ONE (12:27)
[2018-08-08] MEDS ORDERED: SODIUM CHLORIDE 0.9% 1,000ML IVBOLUS ONE (12:30)
[2018-08-08] MEDS ORDERED: ONDANSETRON 2MG/ML, 2ML IVPush ONE (12:30)
[2018-08-08] MEDS: HYDROmorphone 2 MG/ML, 1ML IVPush PRN ×2 (12:39→13:55)
--- NOTE | 2018-08-08 12:44 | NUR ---
MEDICATED PER ORDER, BLOOD CULTURES COMPLETED
[2018-08-08 12:56] LABS: MEAN CORPUSCULAR HEMOGLOBIN 34.4 pg (27.0-34.8); MEAN CORPUSCULAR HGB CONC 34.8 g/dL (32.4-35.8); MEAN CORPUSCULAR VOLUME 98.9 fL (80-100); MEAN PLATELET VOLUME 7.4 fL (7.4-10.4); PLATELET COUNT 189 x10^3/uL (130-400); RED BLOOD COUNT 3.72 x10^6/uL (3.82-5.3); RED CELL DISTRIBUTION WIDTH 14.1 % (9.6-15.2)
[2018-08-08 13:06] LABS: ALANINE AMINOTRANSFERASE 55 U/L (12-78); ALBUMIN 3.8 g/dL (3.4-5.0); ANION GAP 9 mmol/L (5-15); CHLORIDE 104 mmol/L (98-107); CREATININE 0.69 mg/dL (0.55-1.02)
--- NOTE | 2018-08-08 13:06 | NUR ---
PT SLEEPING RESP EVEN AND UNLABORED
[2018-08-08 13:09] LABS: ALKALINE PHOSPHATASE 359 U/L (45-117); BILIRUBIN,TOTAL 3.3 mg/dL (0.2-1.0)
[2018-08-08 13:18] LABS: BASOPHILS # (AUTO) 0.01 x10^3/uL (0-0.1); BASOPHILS % (AUTO) 0 % (0-1); EOSINOPHILS % (AUTO) 0 % (1-7); LYMPHOCYTES # (AUTO) 0.27 x10^3/uL (1-3.4); LYMPHOCYTES % (AUTO) 3 % (22-44); MD SCAN; MONOCYTES % (AUTO) 1 % (2-9); NEUTROPHILS # (AUTO) 10.03 x10^3/uL (1.8-6.8); NEUTROPHILS % (AUTO) 96 % (42-75)
[2018-08-08] MEDS ORDERED: OMNIPAQUE 350 MG/ML, 100ML BOTTLE ONE (13:28)
--- NOTE | 2018-08-08 13:57 | NUR ---
PT STATES ABD PAIN IS 10/10. MEDICATED PER ORDERS
--- NOTE | 2018-08-08 15:15 | NUR ---
UP TO BATHROOM, GAIT SLOW AND STEADY, SENT UA TO LAB
[2018-08-08 15:35] LABS: MICROSCOPIC NOT IND
[2018-08-08 15:53] LABS: CULTURE INDICATED? NO
--- NOTE | 2018-08-08 17:25 | NUR ---
MEDICATED FOR PAIN 02/04. MOTHER AT BS. VERBALIZED NO OTHER NEEDS
[2018-08-08] MEDS ORDERED: HYDROmorphone 2 MG/ML, 1ML IV ONE (17:30)
[2018-08-08] MEDS ORDERED: DOCUSATE 100 MG CAPSULE PO PRN (18:00)
[2018-08-08] MEDS ORDERED: POLYETHYLENE GLYCOL 17 GM PACKET PO PRN (18:00)
[2018-08-08] MEDS: NICOTINE 7 MG/24 HR PATCH.TD24 TD SCH (18:00)
[2018-08-08] MEDS ORDERED: POTASSIUM CHLORIDE 40 MEQ in SODIUM CHLORIDE 0.9% 500 ML IV ONE (18:00)
[2018-08-08] MEDS ORDERED: ONDANSETRON 2MG/ML, 2ML IVPush PRN (18:00)
[2018-08-08] MEDS ORDERED: PROMETHAZINE 25 MG/ML, 1ML IM PRN (18:00)
[2018-08-08] MEDS ORDERED: BISACODYL 10 MG SUPP PR PRN (18:00)
[2018-08-08] MEDS ORDERED: hydrALAzine 20 MG/ML, 1ML IVPush PRN (18:00)
[2018-08-08] MEDS: PIPERACILLIN/TAZO/PMX 3.375GM 50 ML IV SCH (18:18)
--- NOTE | 2018-08-08 18:26 | NUR ---
PAIN IS 3/10, DRINKING WATER, IV INFUSING WELL. MOTHER AT BS
[2018-08-08 18:27] LABS: FREE T4 (FREE THYROXINE) 1.44 ng/dL (0.76-1.46); THYROID STIMULATING HORMONE 1.22 mIU/L (0.358-3.740)
[2018-08-08 18:33] LABS: HEMOGLOBIN A1C 4.6 % (4.2-6.3)
--- NOTE | 2018-08-08 18:58 | NUR ---
REPORT RECEIVED FROM MENDOZA KING.
--- NOTE | 2018-08-08 18:58 | NUR ---
REPORT TO ABIGAIL KING, PLAN OF CARE DISCUSSED
[2018-08-08] MEDS ORDERED: OXYcodone IR 5MG TABLET PO PRN (19:00)
[2018-08-08] MEDS ORDERED: HEPARIN 5,000 UNITS/ML, 1ML ONE (19:42)
[2018-08-08] MEDS ORDERED: NICOTINE 7 MG/24 HR PATCH.TD24 ONE (19:42)
[2018-08-08] MEDS: HEPARIN 5,000 UNITS/ML, 1ML SQ SCH (19:48)
[2018-08-08] MEDS: SODIUM CHLORIDE 0.9% 1,000 ML IV SCH (19:48)
--- NOTE | 2018-08-08 19:54 | NUR ---
PT MEDICATED PER EMAR. PT TOLERATED WELL. PT REFUSED NICOTINE TRANSDERMAL PATCH AT THIS TIME.
--- NOTE | 2018-08-08 20:15 | NUR ---
REPORT GIVEN TO IVANA KING.
[2018-08-08] MEDS: morphine SULFATE 10 MG/ML, 1ML IVPush PRN (20:43)
[2018-08-08] MEDS: OXYcodone IR 5MG TABLET PO PRN (23:12)
[2018-08-08] MEDS: ONDANSETRON ODT 4 MG PO PRN (23:15)
[2018-08-09] MEDS: PIPERACILLIN/TAZO/PMX 3.375GM 50 ML IV SCH ×4 (00:59→22:26)
[2018-08-09] MEDS: morphine SULFATE 10 MG/ML, 1ML IVPush PRN ×6 (01:09→21:08)
[2018-08-09 01:12] VITALS: BP 95/64
[2018-08-09] MEDS: OXYcodone IR 5MG TABLET PO PRN ×5 (03:29→23:20)
[2018-08-09] MEDS: HEPARIN 5,000 UNITS/ML, 1ML SQ SCH ×3 (04:51→19:42)
[2018-08-09] MEDS: SODIUM CHLORIDE 0.9% 1,000 ML IV SCH (04:51)
[2018-08-09 05:08] LABS: BASOPHILS # (AUTO) 0.04 x10^3/uL (0-0.1); BASOPHILS % (AUTO) 0 % (0-1); EOSINOPHILS % (AUTO) 0 % (1-7); LYMPHOCYTES # (AUTO) 0.47 x10^3/uL (1-3.4); LYMPHOCYTES % (AUTO) 4 % (22-44); MD NO; MEAN CORPUSCULAR HEMOGLOBIN 33.4 pg (27.0-34.8); MEAN CORPUSCULAR HGB CONC 33.3 g/dL (32.4-35.8); MEAN CORPUSCULAR VOLUME 100.2 fL (80-100); MEAN PLATELET VOLUME 7.5 fL (7.4-10.4); MONOCYTES # (AUTO) 0.86 x10^3/uL (0.2-0.8); MONOCYTES % (AUTO) 7 % (2-9); NEUTROPHILS # (AUTO) 11.38 x10^3/uL (1.8-6.8); NEUTROPHILS % (AUTO) 89 % (42-75); PLATELET COUNT 140 x10^3/uL (130-400); RED BLOOD COUNT 3.22 x10^6/uL (3.82-5.3); RED CELL DISTRIBUTION WIDTH 14.1 % (9.6-15.2)
[2018-08-09 05:13] LABS: ALANINE AMINOTRANSFERASE 41 U/L (12-78); ALBUMIN 2.8 g/dL (3.4-5.0); ANION GAP 10 mmol/L (5-15); CALCIUM 7.6 mg/dL (8.5-10.1); CHLORIDE 104 mmol/L (98-107); CREATININE 0.47 mg/dL (0.55-1.02)
[2018-08-09 05:16] LABS: ALKALINE PHOSPHATASE 270 U/L (45-117); BILIRUBIN,TOTAL 2.5 mg/dL (0.2-1.0); CHOL/HDL RATIO 2.6; CHOLESTEROL, TOTAL 102 mg/dL (140-239); HDL CHOL % 39 % (28-40); HDL CHOLESTEROL (DIRECT) 40 mg/dL (40-60); LDL CHOLESTEROL,CALCULATED 49 mg/dL (54-169); LDL/HDL RATIO 1.2 (0.5-3.0); TRIGLYCERIDES 66 mg/dL (50-200); VLDL CHOLESTEROL 13 mg/dL (0-25)
[2018-08-09] MEDS ORDERED: CALCIUM GLUCONATE 4.6 MEQ in SODIUM CHLORIDE 0.9% 50 ML IV ONE (09:00)
[2018-08-09] MEDS ORDERED: LACTATED RINGERS 1,000 ML IVBOLUS ONE (09:00)
[2018-08-09] MEDS ORDERED: MAGNESIUM SULFATE PMX 2GM/50ML 50 ML IV ONE (09:00)
[2018-08-09] MEDS ORDERED: IMATINIB 400 MG TABLET PO SCH (09:00)
[2018-08-09] MEDS: LEVOTHYROXINE 50 MCG TABLET PO SCH (09:00)
[2018-08-09 09:38] VITALS: BP 104/68
[2018-08-09 10:32] LABS: INTERNATIONAL NORMALIZED RATIO 1.37 (0.93-1.1); PROTHROMBIN TIME 14.2 Seconds (9.6-11.5)
[2018-08-09 11:02] LABS: % IRON SATURATION 3 % (20-55); IRON LEVEL 9 mcg/dL (50-170); TOTAL IRON BINDING CAPACITY 281 mcg/dL (250-450); TRANSFERRIN 179 mg/dL (200-360)
[2018-08-09 11:04] LABS: FOLATE LEVEL > 20.0 ng/mL (3.1-17.5)
[2018-08-09] MEDS ORDERED: SODIUM CHLORIDE 0.9% 1,000 ML IV SCH (13:00)
[2018-08-09 14:12] VITALS: BP 104/68
[2018-08-09] MEDS: D5%-LR+KCL 20MEQ 1,000 ML IV SCH (16:10)
[2018-08-09] MEDS: ERGOCALCIFEROL 50,000 UNIT CAPSULE PO SCH (16:30)
[2018-08-09] MEDS: NICOTINE 7 MG/24 HR PATCH.TD24 TD SCH (18:00)
[2018-08-09 19:26] VITALS: BP 94/61
[2018-08-10 02:33] VITALS: BP 101/69
[2018-08-10] MEDS: D5%-LR+KCL 20MEQ 1,000 ML IV SCH ×2 (02:49→11:12)
[2018-08-10] MEDS: morphine SULFATE 10 MG/ML, 1ML IVPush PRN ×5 (02:54→20:48)
[2018-08-10] MEDS: ONDANSETRON ODT 4 MG PO PRN (03:27)
[2018-08-10] MEDS: HEPARIN 5,000 UNITS/ML, 1ML SQ SCH ×3 (04:12→19:57)
[2018-08-10] MEDS: PIPERACILLIN/TAZO/PMX 3.375GM 50 ML IV SCH ×3 (04:12→16:56)
[2018-08-10 04:49] LABS: MEAN CORPUSCULAR HEMOGLOBIN 34.5 pg (27.0-34.8); MEAN CORPUSCULAR HGB CONC 34.9 g/dL (32.4-35.8); MEAN CORPUSCULAR VOLUME 98.9 fL (80-100); MEAN PLATELET VOLUME 8.4 fL (7.4-10.4); PLATELET COUNT 121 x10^3/uL (130-400); RED BLOOD COUNT 2.94 x10^6/uL (3.82-5.3); RED CELL DISTRIBUTION WIDTH 14.2 % (9.6-15.2)
[2018-08-10 04:58] LABS: ALANINE AMINOTRANSFERASE 36 U/L (12-78); ALBUMIN 2.8 g/dL (3.4-5.0); ANION GAP 3 mmol/L (5-15); CALCIUM 8.6 mg/dL (8.5-10.1); CHLORIDE 107 mmol/L (98-107); CREATININE 0.57 mg/dL (0.55-1.02)
[2018-08-10 05:00] LABS: ALKALINE PHOSPHATASE 251 U/L (45-117); BILIRUBIN,TOTAL 2.3 mg/dL (0.2-1.0); TOTAL PROTEIN 5.9 g/dL (6.4-8.2)
[2018-08-10 05:42] LABS: BASOPHILS % (AUTO) 0 % (0-1); EOSINOPHILS # (AUTO) 0.07 x10^3/uL (0-0.4); EOSINOPHILS % (AUTO) 1 % (1-7); LYMPHOCYTES # (AUTO) 0.65 x10^3/uL (1-3.4); LYMPHOCYTES % (AUTO) 9 % (22-44); MD SCAN; MONOCYTES # (AUTO) 1.03 x10^3/uL (0.2-0.8); MONOCYTES % (AUTO) 15 % (2-9); NEUTROPHILS # (AUTO) 5.19 x10^3/uL (1.8-6.8); NEUTROPHILS % (AUTO) 75 % (42-75)
[2018-08-10] MEDS: LEVOTHYROXINE 50 MCG TABLET PO SCH (06:17)
[2018-08-10] MEDS: OXYcodone IR 5MG TABLET PO PRN ×4 (06:32→19:57)
[2018-08-10 08:00] VITALS: BP 122/72
[2018-08-10] MEDS: IMATINIB 100 MG TABLET PO SCH (09:00)
[2018-08-10 15:04] VITALS: BP 115/76
[2018-08-10 19:28] VITALS: BP 91/55
[2018-08-10] MEDS: ACETAMINOPHEN 325 MG TABLET PO PRN (20:55)
[2018-08-11] MEDS: PIPERACILLIN/TAZO/PMX 3.375GM 50 ML IV SCH ×4 (01:02→23:01)
[2018-08-11] MEDS: OXYcodone IR 5MG TABLET PO PRN ×4 (02:09→22:51)
[2018-08-11 02:11] VITALS: BP 110/68
[2018-08-11] MEDS: HEPARIN 5,000 UNITS/ML, 1ML SQ SCH ×2 (03:40→12:00)
[2018-08-11] MEDS: morphine SULFATE 10 MG/ML, 1ML IVPush PRN ×4 (05:02→21:04)
[2018-08-11] MEDS: LEVOTHYROXINE 50 MCG TABLET PO SCH (05:02)
[2018-08-11 06:58] VITALS: BP 113/73
[2018-08-11] MEDS: IMATINIB 100 MG TABLET PO SCH (09:00)
[2018-08-11] MEDS ORDERED: FENTANYL PF 100 MCG/2ML ONE (11:43)
[2018-08-11] MEDS ORDERED: MIDAZOLAM 1 MG/ML, 2ML ONE (11:43)
[2018-08-11] MEDS ORDERED: FENTANYL PF 250 MCG/5ML ONE (11:44)
[2018-08-11] MEDS ORDERED: PROPOFOL 10 MG/ML, 20ML ONE ×2 (11:44)
[2018-08-11] MEDS ORDERED: GLYCOPYRROLATE 0.2MG/1ML, 5ML ONE (12:55)
[2018-08-11] MEDS ORDERED: SUCCINYLCHOLINE 20 MG/ML, 10ML ONE (12:56)
[2018-08-11] MEDS ORDERED: ONDANSETRON 2MG/ML, 2ML ONE (12:56)
[2018-08-11] MEDS ORDERED: DEXAMETHASONE 4 MG/ML, 1ML ONE ×2 (13:00)
[2018-08-11] MEDS ORDERED: FENTANYL PF 100 MCG/2ML IV PRN (13:30)
[2018-08-11] MEDS ORDERED: OXYcodone 5 MG/5 ML ORAL.SOL UDC PO PRN (13:30)
[2018-08-11] MEDS ORDERED: PROMETHAZINE 25 MG/ML, 1ML IV PRN (13:30)
[2018-08-11] MEDS ORDERED: OMNIPAQUE 350 MG/ML, 50 ML BOTTLE ONE (14:07)
[2018-08-11] MEDS ORDERED: INDOMETHACIN 50 MG SUPP.RECT ONE (14:15)
[2018-08-11] MEDS ORDERED: morphine SULFATE 10 MG/ML, 1ML ONE (14:19)
[2018-08-11] MEDS ORDERED: PROMETHAZINE 25 MG/ML, 1ML ONE (14:19)
[2018-08-11] MEDS ORDERED: INDOMETHACIN 50 MG SUPP.RECT PR ONE (14:30)
[2018-08-11] MEDS: MORPHINE SULFATE 4 MG/ML, 1ML IVPush PRN ×2 (14:51→16:30)
[2018-08-11 16:58] VITALS: BP 156/83
[2018-08-11 19:23] VITALS: BP_SYST 157; BP_SYST 161; BP_DIAS 83; BP_DIAS 88
[2018-08-11] MEDS ORDERED: MORPHINE SULFATE 4 MG/ML, 1ML ONE (21:02)
[2018-08-12] MEDS: morphine SULFATE 10 MG/ML, 1ML IVPush PRN ×8 (00:05→23:09)
[2018-08-12 01:49] VITALS: BP 143/78
[2018-08-12] MEDS: OXYcodone IR 5MG TABLET PO PRN ×5 (04:40→22:28)
[2018-08-12] MEDS: PIPERACILLIN/TAZO/PMX 3.375GM 50 ML IV SCH ×4 (04:40→23:09)
[2018-08-12] MEDS: LEVOTHYROXINE 50 MCG TABLET PO SCH (06:03)
[2018-08-12 07:32] VITALS: BP 128/77
[2018-08-12] MEDS: IMATINIB 100 MG TABLET PO SCH (07:57)
[2018-08-12] MEDS: ACETAMINOPHEN 325 MG TABLET PO PRN ×3 (07:57→18:50)
[2018-08-12 10:40] LABS: OCCULT BLOOD NEGATIVE (NEGATIVE)
[2018-08-12 13:22] VITALS: BP 115/70
[2018-08-12] MEDS: ONDANSETRON ODT 4 MG PO PRN (17:00)
[2018-08-12 19:14] VITALS: BP 133/80
[2018-08-13] MEDS: morphine SULFATE 10 MG/ML, 1ML IVPush PRN ×6 (02:05→20:10)
[2018-08-13 02:46] VITALS: BP 103/70
[2018-08-13] MEDS: OXYcodone IR 5MG TABLET PO PRN ×5 (04:21→21:16)
[2018-08-13 05:03] LABS: ALBUMIN 2.6 g/dL (3.4-5.0); CALCIUM 8.1 mg/dL (8.5-10.1); CHLORIDE 106 mmol/L (98-107)
[2018-08-13 05:05] LABS: BASOPHILS # (AUTO) 0.02 x10^3/uL (0-0.1); BASOPHILS % (AUTO) 0 % (0-1); EOSINOPHILS # (AUTO) 0.12 x10^3/uL (0-0.4); EOSINOPHILS % (AUTO) 2 % (1-7); LYMPHOCYTES # (AUTO) 1.08 x10^3/uL (1-3.4); LYMPHOCYTES % (AUTO) 19 % (22-44); MD NO; MEAN CORPUSCULAR HEMOGLOBIN 34.4 pg (27.0-34.8); MEAN CORPUSCULAR HGB CONC 34.5 g/dL (32.4-35.8); MEAN CORPUSCULAR VOLUME 99.6 fL (80-100); MEAN PLATELET VOLUME 7.7 fL (7.4-10.4); MONOCYTES # (AUTO) 0.76 x10^3/uL (0.2-0.8); MONOCYTES % (AUTO) 14 % (2-9); NEUTROPHILS # (AUTO) 3.65 x10^3/uL (1.8-6.8); NEUTROPHILS % (AUTO) 65 % (42-75); PLATELET COUNT 191 x10^3/uL (130-400); RED BLOOD COUNT 2.91 x10^6/uL (3.82-5.3); RED CELL DISTRIBUTION WIDTH 14.1 % (9.6-15.2)
[2018-08-13 05:13] LABS: ALANINE AMINOTRANSFERASE 26 U/L (12-78); ALKALINE PHOSPHATASE 220 U/L (45-117); ANION GAP 4 mmol/L (5-15); CREATININE 0.46 mg/dL (0.55-1.02); TOTAL PROTEIN 5.5 g/dL (6.4-8.2)
[2018-08-13] MEDS: LEVOTHYROXINE 50 MCG TABLET PO SCH (05:30)
[2018-08-13] MEDS: PIPERACILLIN/TAZO/PMX 3.375GM 50 ML IV SCH ×4 (05:31→22:55)
[2018-08-13 07:05] VITALS: BP 112/66
[2018-08-13] MEDS ORDERED: POTASSIUM CHLORIDE 40 MEQ in SODIUM CHLORIDE 0.9% 500 ML IV ONE (09:00)
[2018-08-13] MEDS ORDERED: POTASSIUM CHLORIDE 20 MEQ TAB.ER.PRT PO ONE (09:00)
[2018-08-13 13:28] VITALS: BP 120/73
[2018-08-13] MEDS: LACTATED RINGERS 1,000 ML IV SCH ×2 (15:04→21:16)
[2018-08-13 19:26] VITALS: BP 144/77
[2018-08-14] MEDS ORDERED: MORPHINE SULFATE 4 MG/ML, 1ML ONE (00:26)
[2018-08-14] MEDS: morphine SULFATE 10 MG/ML, 1ML IVPush PRN ×7 (00:28→21:31)
[2018-08-14 01:21] VITALS: BP 130/76
[2018-08-14] MEDS: OXYcodone IR 5MG TABLET PO PRN ×6 (01:25→23:49)
[2018-08-14] MEDS: LACTATED RINGERS 1,000 ML IV SCH (02:31)
[2018-08-14 04:53] LABS: BASOPHILS # (AUTO) 0.03 x10^3/uL (0-0.1); BASOPHILS % (AUTO) 1 % (0-1); EOSINOPHILS # (AUTO) 0.11 x10^3/uL (0-0.4); EOSINOPHILS % (AUTO) 2 % (1-7); LYMPHOCYTES # (AUTO) 1.28 x10^3/uL (1-3.4); LYMPHOCYTES % (AUTO) 20 % (22-44); MD NO; MEAN CORPUSCULAR HEMOGLOBIN 33.5 pg (27.0-34.8); MEAN CORPUSCULAR HGB CONC 33.7 g/dL (32.4-35.8); MEAN CORPUSCULAR VOLUME 99.2 fL (80-100); MEAN PLATELET VOLUME 7.7 fL (7.4-10.4); MONOCYTES # (AUTO) 0.94 x10^3/uL (0.2-0.8); MONOCYTES % (AUTO) 15 % (2-9); NEUTROPHILS # (AUTO) 3.97 x10^3/uL (1.8-6.8); NEUTROPHILS % (AUTO) 63 % (42-75); PLATELET COUNT 235 x10^3/uL (130-400); RED BLOOD COUNT 2.99 x10^6/uL (3.82-5.3); RED CELL DISTRIBUTION WIDTH 14.1 % (9.6-15.2)
[2018-08-14 04:58] LABS: ALANINE AMINOTRANSFERASE 25 U/L (12-78); ALBUMIN 2.7 g/dL (3.4-5.0); ANION GAP 6 mmol/L (5-15); CALCIUM 8.9 mg/dL (8.5-10.1); CHLORIDE 107 mmol/L (98-107); CREATININE 0.51 mg/dL (0.55-1.02)
[2018-08-14 05:01] LABS: ALKALINE PHOSPHATASE 233 U/L (45-117); BILIRUBIN,TOTAL 0.8 mg/dL (0.2-1.0); TOTAL PROTEIN 5.8 g/dL (6.4-8.2)
[2018-08-14] MEDS: PIPERACILLIN/TAZO/PMX 3.375GM 50 ML IV SCH ×4 (05:05→23:10)
[2018-08-14] MEDS: LEVOTHYROXINE 50 MCG TABLET PO SCH (05:45)
[2018-08-14] MEDS ORDERED: MAGNESIUM SULFATE PMX 2GM/50ML 50 ML IV ONE (07:30)
[2018-08-14 07:57] VITALS: BP 133/78
[2018-08-14 13:06] VITALS: BP 122/76
[2018-08-14 20:30] VITALS: BP 133/77
[2018-08-14] MEDS: ONDANSETRON ODT 4 MG PO PRN (21:09)
[2018-08-15 01:03] VITALS: BP 128/64
[2018-08-15] MEDS: morphine SULFATE 10 MG/ML, 1ML IVPush PRN ×4 (01:08→21:38)
[2018-08-15] MEDS: OXYcodone IR 5MG TABLET PO PRN ×4 (05:11→20:26)
[2018-08-15] MEDS: LEVOTHYROXINE 50 MCG TABLET PO SCH (05:11)
[2018-08-15] MEDS: PIPERACILLIN/TAZO/PMX 3.375GM 50 ML IV SCH ×4 (05:12→22:43)
[2018-08-15 07:20] VITALS: BP 132/79
[2018-08-15 14:00] VITALS: BP 117/72
[2018-08-15 19:02] VITALS: BP 138/77
[2018-08-15] MEDS: ONDANSETRON ODT 4 MG PO PRN (21:45)
[2018-08-16 00:35] VITALS: BP 119/74
[2018-08-16] MEDS: OXYcodone IR 5MG TABLET PO PRN ×6 (00:37→22:58)
[2018-08-16] MEDS: morphine SULFATE 10 MG/ML, 1ML IVPush PRN ×3 (04:10→19:55)
[2018-08-16] MEDS: PIPERACILLIN/TAZO/PMX 3.375GM 50 ML IV SCH ×4 (05:33→23:01)
[2018-08-16] MEDS: LEVOTHYROXINE 50 MCG TABLET PO SCH (05:34)
[2018-08-16 07:20] VITALS: BP 122/74
[2018-08-16 13:20] VITALS: BP 122/76
[2018-08-16] MEDS: ERGOCALCIFEROL 50,000 UNIT CAPSULE PO SCH (16:45)
[2018-08-16 19:34] VITALS: BP 126/77
[2018-08-17 02:30] VITALS: BP 125/65
[2018-08-17] MEDS: OXYcodone IR 5MG TABLET PO PRN ×5 (03:01→21:43)
[2018-08-17] MEDS: morphine SULFATE 10 MG/ML, 1ML IVPush PRN ×5 (04:14→23:07)
[2018-08-17 04:29] LABS: HCT (SEDRATE) 32.3 % (34.6-47.8)
[2018-08-17] MEDS: PIPERACILLIN/TAZO/PMX 3.375GM 50 ML IV SCH ×4 (04:50→23:07)
[2018-08-17] MEDS: LEVOTHYROXINE 50 MCG TABLET PO SCH (06:08)
[2018-08-17 08:10] VITALS: BP 114/74
[2018-08-17 15:00] VITALS: BP 122/79
[2018-08-17] MEDS: ONDANSETRON ODT 4 MG PO PRN (15:48)
[2018-08-17 19:19] VITALS: BP 125/74
[2018-08-17] MEDS ORDERED: MORPHINE SULFATE 4 MG/ML, 1ML ONE (23:05)
[2018-08-18 01:03] VITALS: BP 109/71
[2018-08-18] MEDS: OXYcodone IR 5MG TABLET PO PRN ×3 (02:53→11:57)
[2018-08-18 04:35] LABS: BASOPHILS # (AUTO) 0.07 x10^3/uL (0-0.1); BASOPHILS % (AUTO) 1 % (0-1); EOSINOPHILS # (AUTO) 0.19 x10^3/uL (0-0.4); EOSINOPHILS % (AUTO) 2 % (1-7); LYMPHOCYTES # (AUTO) 1.43 x10^3/uL (1-3.4); LYMPHOCYTES % (AUTO) 17 % (22-44); MD NO; MEAN CORPUSCULAR VOLUME 99.9 fL (80-100); MEAN PLATELET VOLUME 7.1 fL (7.4-10.4); MONOCYTES # (AUTO) 1.22 x10^3/uL (0.2-0.8); MONOCYTES % (AUTO) 14 % (2-9); NEUTROPHILS # (AUTO) 5.77 x10^3/uL (1.8-6.8); NEUTROPHILS % (AUTO) 67 % (42-75); PLATELET COUNT 373 x10^3/uL (130-400); RED BLOOD COUNT 3.28 x10^6/uL (3.82-5.3); RED CELL DISTRIBUTION WIDTH 14.5 % (9.6-15.2)
[2018-08-18] MEDS ORDERED: LEVOTHYROXINE 25 MCG TABLET ONE (05:42)
[2018-08-18] MEDS: PIPERACILLIN/TAZO/PMX 3.375GM 50 ML IV SCH ×2 (05:46→11:57)
[2018-08-18] MEDS: LEVOTHYROXINE 50 MCG TABLET PO SCH (05:46)
[2018-08-18 07:45] VITALS: BP 112/70
[2018-08-18] MEDS ORDERED: AMOX1TAB64 PO (10:29)
[2018-08-18] MEDS ORDERED: ERGO500017 PO (10:29)
[2018-08-18 13:25] VITALS: BP 115/77
== END 2018-08-18 14:43 | disposition home or self-care (01) | DRG 919 ==
LOC: ED 13:12 → EDIP 15:16 → 3NE 20:34 → 3NW 08-09 14:47 → DCLOUNGE 08-18 14:30
PROVIDERS: ADMIT Hospitalist; ATTEND Hospitalist
PROC: 0F5 Hepatobiliary System and Pancreas, Destruction (ICD-10-PCS; 2018-08-11)
PROC: 0FC98ZZ Extirpation of Matter from Common Bile Duct, Via Natural or Artificial Opening Endoscopic (ICD-10-PCS; principal; 2018-08-11 12:30)
DX: T85.79XA Infection and inflammatory reaction due to other internal prosthetic devices, implants and grafts, initial encounter (principal); A41.81 Sepsis due to Enterococcus; K83.1 Obstruction of bile duct; K85.90 Acute pancreatitis without necrosis or infection, unspecified; A41.59 Other Gram-negative sepsis; C78.7 Secondary malignant neoplasm of liver and intrahepatic bile duct; E44.0 Moderate protein-calorie malnutrition; K83.09 Other cholangitis; M48.50XA Collapsed vertebra, not elsewhere classified, site unspecified, initial encounter for fracture; Y83.8 Other surgical procedures as the cause of abnormal reaction of the patient, or of later complication, without mention of misadventure at the time of the procedure; B96.1 Klebsiella pneumoniae [K. pneumoniae] as the cause of diseases classified elsewhere; E03.9 Hypothyroidism, unspecified; E86.0 Dehydration; E87.6 Hypokalemia; I86.8 Varicose veins of other specified sites; F12.90 Cannabis use, unspecified, uncomplicated; F17.200 Nicotine dependence, unspecified, uncomplicated; G89.29 Other chronic pain; K59.09 Other constipation; Z80.1 Family history of malignant neoplasm of trachea, bronchus and lung; Z82.5 Family history of asthma and other chronic lower respiratory diseases; Z85.05 Personal history of malignant neoplasm of liver; Z85.09 Personal history of malignant neoplasm of other digestive organs; Y92.89 Other specified places as the place of occurrence of the external cause; Z90.49 Acquired absence of other specified parts of digestive tract; Z79.899 Other long term (current) drug therapy
CPT/HCPCS: 36415; 74328; 84145; 96361; 99285; J3490; 71260; 74177; 80053; 80061; 81003; 82272; 82306; 82330; 82607; 82728; 82746; 83036; 83540; 83550; 83605; 83690; 83735; 84439; 84443; 84466; 85025; 85610; 85651; 85730; 86140; 87040; 87077; 87086; 87186; 93306; 96365; 96366; 96375; 96376; G0378; J0610; J1100; J1170; J1644; J2250; J2405; J2543; J2550; J2704; J3010; J3480; Q0162; Q9967; C1769; J0330; J2270; J3475; J7030; J7040; J7120

== ENCOUNTER → 2019-02-25 | Outpatient (CLI) | payer MEDICAID ==
[~2019-02-25] MED LIST changes: +AMOX1TAB64 PO; +ERGO500017 PO; +FENT1PAT74 TP; +LACT1CAP37 PO; +OMEP-110 PO; +OXYC15TA75 PO; +SPIR50TA PO; -URSO500T8 PO; +URSO500T9 PO
[2019-02-25 15:12] LABS: ALANINE AMINOTRANSFERASE 47 U/L (12-78); ALBUMIN 3.6 g/dL (3.4-5.0); ANION GAP 6 mmol/L (5-15); CALCIUM 8.5 mg/dL (8.5-10.1); CHLORIDE 101 mmol/L (98-107); CREATININE 0.73 mg/dL (0.55-1.02)
[2019-02-25 15:14] LABS: ALKALINE PHOSPHATASE 506 U/L (45-117); BILIRUBIN,TOTAL 1.1 mg/dL (0.2-1.0); TOTAL PROTEIN 7.5 g/dL (6.4-8.2)
== END | disposition home or self-care (01) ==
LOC: STAR 14:01
PROVIDERS: ATTEND Internal Medicine Gastroenterology
DX: C49.A3 Gastrointestinal stromal tumor of small intestine (principal); K83.1 Obstruction of bile duct; K83.09 Other cholangitis
CPT/HCPCS: 36415; 80053

== ENCOUNTER 2019-03-05 07:16 | Day surgery (SDC) | payer MEDICAID ==
[~2019-03-05] VITALS: Ht 172.7 cm; Wt 52.0 kg
[2019-03-05 07:46] VITALS: BP 109/69
[2019-03-05] MEDS: LACTATED RINGERS 1,000 ML IV SCH ×2 (07:57→11:17)
[2019-03-05] MEDS ORDERED: CIPROFLOXACIN/PMX 400MG/200ML 200 ML ONE (08:47)
[2019-03-05] MEDS ORDERED: FENTANYL PF 100 MCG/2ML ONE ×2 (09:33→11:04)
[2019-03-05] MEDS ORDERED: PROPOFOL 10 MG/ML, 20ML ONE (09:34)
[2019-03-05] MEDS ORDERED: ROCURONIUM 10MG/ML,5ML ONE (09:34)
[2019-03-05] MEDS ORDERED: DEXAMETHASONE 4 MG/ML, 1ML ONE ×2 (09:34→09:53)
[2019-03-05] MEDS ORDERED: SUCCINYLCHOLINE 20 MG/ML, 10ML ONE (09:34)
[2019-03-05] MEDS ORDERED: ONDANSETRON 2MG/ML, 2ML ONE ×2 (09:53)
[2019-03-05] MEDS ORDERED: INDOMETHACIN 50 MG SUPP.RECT ONE (10:57)
[2019-03-05] MEDS ORDERED: PROMETHAZINE 25 MG/ML, 1ML ONE (10:57)
[2019-03-05] MEDS ORDERED: OXYcodone 5 MG/5 ML ORAL.SOL UDC PO PRN (11:00)
[2019-03-05] MEDS ORDERED: ONDANSETRON 2MG/ML, 2ML IV PRN (11:00)
[2019-03-05] MEDS ORDERED: PROMETHAZINE 25 MG/ML, 1ML IV PRN (11:00)
[2019-03-05] MEDS ORDERED: EPHEDRINE 50 MG/ML, 1ML IVPush PRN (11:00)
[2019-03-05] MEDS ORDERED: HYDROmorphone 2 MG/ML, 1ML IVPush PRN (11:00)
[2019-03-05] MEDS ORDERED: hydrALAzine 20 MG/ML, 1ML IV PRN (11:00)
[2019-03-05] MEDS ORDERED: ONDANSETRON ODT 8 MG PO PRN (11:00)
[2019-03-05] MEDS ORDERED: DIAZEPAM 5 MG/ML, 2ML IVPush PRN (11:00)
[2019-03-05] MEDS ORDERED: PROMETHAZINE 12.5 MG SUPP PR PRN (11:00)
[2019-03-05] MEDS ORDERED: LABETALOL 5MG/ML, 20ML IV PRN (11:00)
[2019-03-05] MEDS ORDERED: ALBUTEROL SULFATE 2.5 MG/3 ML NPPB PRN (11:00)
[2019-03-05] MEDS ORDERED: HALOPERIDOL 5 MG/ML IV PRN (11:00)
[2019-03-05] MEDS ORDERED: MEPERIDINE/PF 25MG/ML,1ML IVPush PRN (11:00)
[2019-03-05] MEDS ORDERED: MIDAZOLAM 1 MG/ML, 2ML IV PRN (11:00)
[2019-03-05] MEDS: FENTANYL PF 100 MCG/2ML IV PRN ×2 (11:06→11:15)
[2019-03-05] MEDS ORDERED: OXYcodone 5 MG/5 ML ORAL.SOL UDC ONE (11:24)
[2019-03-05] MEDS ORDERED: HYDROmorphone 1 MG/ML, 1ML VIAL ONE (11:28)
== END 2019-03-05 13:40 | disposition home or self-care (01) ==
LOC: OR 07:16
PROVIDERS: ATTEND Internal Medicine Gastroenterology
DX: T85.898A Other specified complication of other internal prosthetic devices, implants and grafts, initial encounter (principal); E03.9 Hypothyroidism, unspecified; F32.9 Major depressive disorder, single episode, unspecified; F41.9 Anxiety disorder, unspecified; Z79.890 Hormone replacement therapy; Z79.899 Other long term (current) drug therapy; Y83.8 Other surgical procedures as the cause of abnormal reaction of the patient, or of later complication, without mention of misadventure at the time of the procedure
CPT/HCPCS: 00732; 43264; 43275; 74328; C1769; J0330; J0744; J1100; J1170; J2405; J2550; J2704; J3010; J7120

== ENCOUNTER → 2019-04-02 | Outpatient (CLI) | payer MEDICAID | END | disposition home or self-care (01) | LOC: CFH 06:46 | PROVIDERS: ATTEND Pathology Hematology | DX: G89.3 Neoplasm related pain (acute) (chronic) (principal); I07.1 Rheumatic tricuspid insufficiency | CPT/HCPCS: 93306 ==

== ENCOUNTER → 2019-06-04 | Outpatient (CLI) | payer MEDICAID ==
[~2019-06-04] MED LIST changes: +OMNIPAQUE 350 MG/ML, 100ML BOTTLE ONE
== END | disposition home or self-care (01) ==
LOC: RAD 11:10
PROVIDERS: ATTEND Pathology Hematology
DX: M48.54XA Collapsed vertebra, not elsewhere classified, thoracic region, initial encounter for fracture (principal); R16.0 Hepatomegaly, not elsewhere classified; R91.8 Other nonspecific abnormal finding of lung field; M85.88 Other specified disorders of bone density and structure, other site; M47.817 Spondylosis without myelopathy or radiculopathy, lumbosacral region; Z90.49 Acquired absence of other specified parts of digestive tract
CPT/HCPCS: 71260; 74177; Q9967

== ENCOUNTER 2019-09-18 00:42 | Inpatient (IN) | payer MEDICAID ==
[~2019-09-18] VITALS: Ht 172.7 cm; Wt 54.6 kg
[~2019-09-18 00:42] MED LIST changes: -OMNIPAQUE 350 MG/ML, 100ML BOTTLE ONE
--- NOTE | 2019-09-18 00:50 | NUR ---
PT AMBULATES FROM TRIAGE TO LOBBY WITH STEADY GAIT ACCOMPANIED BY FAMILY. Addendum: 09/18/19 at 0051 by MIGUEL PT AMBULATES FROM TRIAGE TO ROOM WITH STEADY GAIT ACCOMPANIED BY FAMILY.
--- NOTE | 2019-09-18 01:12 | NUR ---
TASK RN: PT IN GOWN IN [facility]. PT PROVIDED WARM BLANKET. PT ATTACHED TO VS MACHINES. VSS AT THIS TIME. PT EDUCATED ON ER PROCESS AND POC AND VERBALIZE UNDERSTANDING. AWAITING ERP FOR PT HISTORY AND ASSESSMENT. CALL LIGHT IS WITHIN REACH AT THIS TIME.
[2019-09-18] MEDS ORDERED: ONDANSETRON 2MG/ML, 2ML ONE (01:19)
[2019-09-18] MEDS ORDERED: MORPHINE SULFATE 4 MG/ML, 1ML ONE (01:19)
[2019-09-18] MEDS ORDERED: MORPHINE SULFATE 4 MG/ML, 1ML IVPush PRN (01:30)
[2019-09-18] MEDS ORDERED: SODIUM CHLORIDE FLUSH 10ML SYR IVF ONE (01:30)
[2019-09-18] MEDS ORDERED: ONDANSETRON 2MG/ML, 2ML IVPush ONE (01:30)
--- NOTE | 2019-09-18 01:30 | NUR ---
PT UNABLE TO PROVIDE UA AT THIS TIME.
--- NOTE | 2019-09-18 01:33 | NUR ---
IV PLACED, LABS DRAWN, PT MEDICATED PER MAR. PT TO IMAGING AT THIS TIME.
[2019-09-18 01:52] LABS: INTERNATIONAL NORMALIZED RATIO 1.03 (0.93-1.1); PROTHROMBIN TIME 10.9 Seconds (9.6-11.5)
[2019-09-18 01:53] LABS: ALANINE AMINOTRANSFERASE 52 U/L (12-78); ALBUMIN 3.2 g/dL (3.4-5.0); ANION GAP 5 mmol/L (5-15); CALCIUM 9.2 mg/dL (8.5-10.1); CHLORIDE 100 mmol/L (98-107)
[2019-09-18 01:55] LABS: ALKALINE PHOSPHATASE 584 U/L (45-117); BILIRUBIN,TOTAL 7.7 mg/dL (0.2-1.0); CREATININE 0.71 mg/dL (0.55-1.02); TOTAL PROTEIN 7.5 g/dL (6.4-8.2)
[2019-09-18 02:02] LABS: BASOPHILS # (AUTO) 0.01 x10^3/uL (0-0.1); BASOPHILS % (AUTO) 0 % (0-1); EOSINOPHILS # (AUTO) 0.01 x10^3/uL (0-0.4); EOSINOPHILS % (AUTO) 0 % (1-7); LYMPHOCYTES # (AUTO) 0.97 x10^3/uL (1-3.4); LYMPHOCYTES % (AUTO) 20 % (22-44); MD NO; MEAN CORPUSCULAR HEMOGLOBIN 33.1 pg (27.0-34.8); MEAN CORPUSCULAR HGB CONC 33.1 g/dL (32.4-35.8); MEAN PLATELET VOLUME 8.1 fL (7.4-10.4); MONOCYTES # (AUTO) 0.63 x10^3/uL (0.2-0.8); MONOCYTES % (AUTO) 13 % (2-9); NEUTROPHILS # (AUTO) 3.22 x10^3/uL (1.8-6.8); NEUTROPHILS % (AUTO) 66 % (42-75); PLATELET COUNT 284 x10^3/uL (130-400); RED BLOOD COUNT 3.53 x10^6/uL (3.82-5.3); RED CELL DISTRIBUTION WIDTH 16.6 % (9.6-15.2)
[2019-09-18 02:16] LABS: MICROSCOPIC NOT IND
[2019-09-18] MEDS ORDERED: POTASSIUM CHLORIDE 20 MEQ TAB.ER.PRT ONE (03:19)
[2019-09-18] MEDS ORDERED: PIPERACILLIN/TAZO/PMX 3.375GM 50 ML ONE (03:19)
[2019-09-18] MEDS ORDERED: ONDANSETRON 2MG/ML, 2ML IVPush PRN (03:30)
[2019-09-18] MEDS ORDERED: POTASSIUM CHLORIDE 20 MEQ TAB.ER.PRT PO ONE (03:30)
[2019-09-18] MEDS: PIPERACILLIN/TAZO/PMX 3.375GM 50 ML IV SCH ×4 (03:42→21:16)
[2019-09-18 04:20] VITALS: BP 136/82
[2019-09-18] MEDS: SODIUM CHLORIDE 0.9% 1,000 ML IV SCH (05:05)
[2019-09-18 07:42] VITALS: BP 136/81
[2019-09-18] MEDS: morphine SULFATE 10 MG/ML, 1ML IVPush PRN ×5 (07:59→21:15)
[2019-09-18] MEDS ORDERED: SUNI37.5 PO (12:26)
[2019-09-18 14:32] VITALS: BP 126/74
[2019-09-18 19:14] VITALS: BP 149/75
[2019-09-19] MEDS: morphine SULFATE 10 MG/ML, 1ML IVPush PRN ×5 (00:13→21:45)
[2019-09-19] MEDS: SODIUM CHLORIDE 0.9% 1,000 ML IV SCH ×3 (00:13→23:54)
[2019-09-19 01:04] VITALS: BP 121/69
[2019-09-19] MEDS: PIPERACILLIN/TAZO/PMX 3.375GM 50 ML IV SCH ×4 (03:39→21:37)
[2019-09-19 06:05] LABS: ALBUMIN 2.5 g/dL (3.4-5.0); ANION GAP 5 mmol/L (5-15); CALCIUM 8.8 mg/dL (8.5-10.1); CHLORIDE 108 mmol/L (98-107)
[2019-09-19 06:08] LABS: BASOPHILS # (AUTO) 0.01 x10^3/uL (0-0.1); BASOPHILS % (AUTO) 0 % (0-1); EOSINOPHILS # (AUTO) 0.04 x10^3/uL (0-0.4); EOSINOPHILS % (AUTO) 1 % (1-7); LYMPHOCYTES # (AUTO) 0.98 x10^3/uL (1-3.4); LYMPHOCYTES % (AUTO) 32 % (22-44); MD NO; MEAN CORPUSCULAR HEMOGLOBIN 33.4 pg (27.0-34.8); MEAN CORPUSCULAR HGB CONC 33.3 g/dL (32.4-35.8); MEAN CORPUSCULAR VOLUME 100.3 fL (80-100); MEAN PLATELET VOLUME 8.2 fL (7.4-10.4); MONOCYTES # (AUTO) 0.42 x10^3/uL (0.2-0.8); MONOCYTES % (AUTO) 14 % (2-9); NEUTROPHILS % (AUTO) 52 % (42-75); PLATELET COUNT 251 x10^3/uL (130-400); RED BLOOD COUNT 3.28 x10^6/uL (3.82-5.3); RED CELL DISTRIBUTION WIDTH 16.9 % (9.6-15.2)
[2019-09-19 06:09] LABS: ALANINE AMINOTRANSFERASE 49 U/L (12-78); ALKALINE PHOSPHATASE 531 U/L (45-117); BILIRUBIN,TOTAL 7.9 mg/dL (0.2-1.0); CREATININE 0.58 mg/dL (0.55-1.02); TOTAL PROTEIN 6.5 g/dL (6.4-8.2)
[2019-09-19 07:10] VITALS: BP 127/74
[2019-09-19] MEDS: LEVOTHYROXINE 100 MCG INJ IVPush SCH (09:06)
[2019-09-19] MEDS ORDERED: HYDROmorphone 2 MG/ML, 1ML ONE (12:05)
[2019-09-19] MEDS: HYDROmorphone 1 MG/ML, 1ML INJ IV PRN (12:09)
[2019-09-19] MEDS ORDERED: FENTANYL PF 100 MCG/2ML ONE ×2 (12:12→14:24)
[2019-09-19] MEDS ORDERED: FENTANYL PF 100 MCG/2ML IV PRN (13:00)
[2019-09-19] MEDS ORDERED: LABETALOL 5MG/ML, 20ML IV PRN (13:00)
[2019-09-19] MEDS ORDERED: MIDAZOLAM 1 MG/ML, 2ML IV PRN (13:00)
[2019-09-19] MEDS ORDERED: PROMETHAZINE 25 MG/ML, 1ML IVPush PRN (13:00)
[2019-09-19] MEDS ORDERED: ALBUTEROL SULFATE 2.5 MG/3 ML NPPB PRN (13:00)
[2019-09-19] MEDS ORDERED: OXYcodone 5 MG/5 ML ORAL.SOL UDC PO PRN (13:00)
[2019-09-19] MEDS ORDERED: SUCCINYLCHOLINE 20 MG/ML, 10ML ONE (13:16)
[2019-09-19] MEDS ORDERED: ONDANSETRON 2MG/ML, 2ML ONE (13:29)
[2019-09-19] MEDS ORDERED: DEXAMETHASONE 4 MG/ML, 1ML ONE (13:29)
[2019-09-19] MEDS ORDERED: PROPOFOL 10 MG/ML, 20ML ONE (13:29)
[2019-09-19] MEDS ORDERED: OMNIPAQUE 350 MG/ML, 50 ML BOTTLE ONE (13:30)
[2019-09-19] MEDS ORDERED: INDOMETHACIN 50 MG SUPP.RECT ONE (15:01)
[2019-09-19] MEDS ORDERED: INDOMETHACIN 50 MG SUPP.RECT PR ONE (15:30)
[2019-09-19 20:24] VITALS: BP 128/76
[2019-09-20] MEDS: morphine SULFATE 10 MG/ML, 1ML IVPush PRN ×5 (02:45→20:38)
[2019-09-20 03:10] VITALS: BP 142/76
[2019-09-20] MEDS: PIPERACILLIN/TAZO/PMX 3.375GM 50 ML IV SCH ×4 (03:25→21:41)
[2019-09-20 07:00] VITALS: BP 155/85
[2019-09-20] MEDS ORDERED: FENTANYL 12 MCG PATCH ONE (07:48)
[2019-09-20] MEDS: LEVOTHYROXINE 100 MCG INJ IVPush SCH (08:23)
[2019-09-20] MEDS: SODIUM CHLORIDE 0.9% 1,000 ML IV SCH ×2 (08:23→20:38)
[2019-09-20] MEDS: FENTANYL 25 MCG PATCH TD SCH (08:24)
[2019-09-20 08:41] LABS: ALBUMIN 2.5 g/dL (3.4-5.0); ANION GAP 5 mmol/L (5-15); CALCIUM 8.7 mg/dL (8.5-10.1); CHLORIDE 104 mmol/L (98-107)
[2019-09-20 08:44] LABS: ALANINE AMINOTRANSFERASE 62 U/L (12-78); ALKALINE PHOSPHATASE 565 U/L (45-117); BILIRUBIN,TOTAL 6.5 mg/dL (0.2-1.0); CREATININE 0.67 mg/dL (0.55-1.02); MEAN CORPUSCULAR HEMOGLOBIN 33.6 pg (27.0-34.8); MEAN CORPUSCULAR HGB CONC 33.7 g/dL (32.4-35.8); MEAN CORPUSCULAR VOLUME 99.8 fL (80-100); MEAN PLATELET VOLUME 7.9 fL (7.4-10.4); PLATELET COUNT 325 x10^3/uL (130-400); RED BLOOD COUNT 3.57 x10^6/uL (3.82-5.3); RED CELL DISTRIBUTION WIDTH 16.5 % (9.6-15.2); TOTAL PROTEIN 6.4 g/dL (6.4-8.2)
[2019-09-20] MEDS: POLYETHYLENE GLYCOL 17 GM PACKET PO PRN (09:31)
[2019-09-20 09:44] LABS: BASOPHILS # (AUTO) 0.03 x10^3/uL (0-0.1); BASOPHILS % (AUTO) 0 % (0-1); EOSINOPHILS % (AUTO) 0 % (1-7); LYMPHOCYTES # (AUTO) 0.63 x10^3/uL (1-3.4); LYMPHOCYTES % (AUTO) 8 % (22-44); MD SCAN; MONOCYTES # (AUTO) 0.58 x10^3/uL (0.2-0.8); MONOCYTES % (AUTO) 8 % (2-9); NEUTROPHILS # (AUTO) 6.24 x10^3/uL (1.8-6.8); NEUTROPHILS % (AUTO) 83 % (42-75)
[2019-09-20 11:14] VITALS: BP 145/84
[2019-09-20] MEDS: HYDROmorphone 1 MG/ML, 1ML INJ IV PRN (11:55)
[2019-09-20 12:54] VITALS: BP 103/64
[2019-09-20] MEDS ORDERED: OMNIPAQUE 350 MG/ML, 100ML BOTTLE ONE (13:34)
[2019-09-20 18:27] VITALS: BP 94/60
[2019-09-21 02:09] VITALS: BP 98/62
[2019-09-21] MEDS: morphine SULFATE 10 MG/ML, 1ML IVPush PRN ×5 (02:12→21:25)
[2019-09-21] MEDS: PIPERACILLIN/TAZO/PMX 3.375GM 50 ML IV SCH (03:51)
[2019-09-21 05:46] LABS: BASOPHILS # (AUTO) 0.02 x10^3/uL (0-0.1); BASOPHILS % (AUTO) 0 % (0-1); EOSINOPHILS # (AUTO) 0.03 x10^3/uL (0-0.4); EOSINOPHILS % (AUTO) 1 % (1-7); LYMPHOCYTES # (AUTO) 1.18 x10^3/uL (1-3.4); LYMPHOCYTES % (AUTO) 20 % (22-44); MD NO; MEAN CORPUSCULAR HEMOGLOBIN 33.6 pg (27.0-34.8); MEAN CORPUSCULAR HGB CONC 33.5 g/dL (32.4-35.8); MEAN CORPUSCULAR VOLUME 100.4 fL (80-100); MEAN PLATELET VOLUME 7.9 fL (7.4-10.4); MONOCYTES # (AUTO) 0.81 x10^3/uL (0.2-0.8); MONOCYTES % (AUTO) 14 % (2-9); NEUTROPHILS # (AUTO) 3.78 x10^3/uL (1.8-6.8); NEUTROPHILS % (AUTO) 65 % (42-75); PLATELET COUNT 254 x10^3/uL (130-400); RED BLOOD COUNT 2.86 x10^6/uL (3.82-5.3)
[2019-09-21 06:02] LABS: ALANINE AMINOTRANSFERASE 56 U/L (12-78); ALBUMIN 2.2 g/dL (3.4-5.0); ANION GAP 6 mmol/L (5-15); CALCIUM 8.5 mg/dL (8.5-10.1); CHLORIDE 104 mmol/L (98-107)
[2019-09-21 06:04] LABS: ALKALINE PHOSPHATASE 441 U/L (45-117); BILIRUBIN,TOTAL 7.1 mg/dL (0.2-1.0); CREATININE 0.58 mg/dL (0.55-1.02); TOTAL PROTEIN 5.6 g/dL (6.4-8.2)
[2019-09-21] MEDS: SODIUM CHLORIDE 0.9% 1,000 ML IV SCH ×2 (06:23→17:00)
[2019-09-21 07:34] VITALS: BP 112/64
[2019-09-21] MEDS: LEVOTHYROXINE 100 MCG INJ IVPush SCH (10:58)
[2019-09-21] MEDS: MEROPENEM 1 GM in SODIUM CHLORIDE 0.9% 100 ML IV SCH ×2 (10:58→16:59)
[2019-09-21 14:35] VITALS: BP 102/63
[2019-09-21] MEDS: POTASSIUM CHLORIDE 20 MEQ TAB.ER.PRT PO SCH (17:00)
[2019-09-21 18:43] VITALS: BP 116/71
[2019-09-21] MEDS ORDERED: MORPHINE SULFATE 4 MG/ML, 1ML ONE (21:23)
[2019-09-22] MEDS ORDERED: MORPHINE SULFATE 4 MG/ML, 1ML ONE (00:22)
[2019-09-22] MEDS: morphine SULFATE 10 MG/ML, 1ML IVPush PRN ×6 (00:24→21:01)
[2019-09-22] MEDS: MEROPENEM 1 GM in SODIUM CHLORIDE 0.9% 100 ML IV SCH ×3 (01:35→18:28)
[2019-09-22] MEDS: SODIUM CHLORIDE 0.9% 1,000 ML IV SCH ×3 (01:36→21:01)
[2019-09-22 01:49] VITALS: BP 116/70
[2019-09-22 05:52] LABS: BASOPHILS # (AUTO) 0.02 x10^3/uL (0-0.1); BASOPHILS % (AUTO) 1 % (0-1); EOSINOPHILS # (AUTO) 0.03 x10^3/uL (0-0.4); EOSINOPHILS % (AUTO) 1 % (1-7); LYMPHOCYTES % (AUTO) 22 % (22-44); MD NO; MEAN CORPUSCULAR HEMOGLOBIN 33.3 pg (27.0-34.8); MEAN CORPUSCULAR VOLUME 100.8 fL (80-100); MEAN PLATELET VOLUME 7.6 fL (7.4-10.4); MONOCYTES # (AUTO) 0.54 x10^3/uL (0.2-0.8); MONOCYTES % (AUTO) 12 % (2-9); NEUTROPHILS # (AUTO) 2.92 x10^3/uL (1.8-6.8); NEUTROPHILS % (AUTO) 65 % (42-75); PLATELET COUNT 291 x10^3/uL (130-400)
[2019-09-22 06:10] LABS: ALBUMIN 2.3 g/dL (3.4-5.0); ANION GAP 6 mmol/L (5-15); CALCIUM 8.2 mg/dL (8.5-10.1); CHLORIDE 105 mmol/L (98-107)
[2019-09-22 06:31] LABS: ALANINE AMINOTRANSFERASE 56 U/L (12-78); ALKALINE PHOSPHATASE 435 U/L (45-117); BILIRUBIN,TOTAL 4.4 mg/dL (0.2-1.0); CREATININE 0.44 mg/dL (0.55-1.02); TOTAL PROTEIN 5.7 g/dL (6.4-8.2)
[2019-09-22 08:55] VITALS: BP 120/70
[2019-09-22] MEDS: POTASSIUM CHLORIDE 20 MEQ TAB.ER.PRT PO SCH ×2 (08:58→16:52)
[2019-09-22] MEDS: LEVOTHYROXINE 100 MCG INJ IVPush SCH (08:59)
[2019-09-22] MEDS ORDERED: MAGNESIUM SULFATE PMX 2GM/50ML 50 ML IV ONE (14:30)
[2019-09-22 15:00] VITALS: BP 129/69
[2019-09-22 19:35] VITALS: BP 128/68
[2019-09-23] MEDS: morphine SULFATE 10 MG/ML, 1ML IVPush PRN ×7 (00:37→23:50)
[2019-09-23 00:40] VITALS: BP 127/78
[2019-09-23] MEDS: MEROPENEM 1 GM in SODIUM CHLORIDE 0.9% 100 ML IV SCH ×3 (02:17→17:38)
[2019-09-23] MEDS: SODIUM CHLORIDE 0.9% 1,000 ML IV SCH (02:18)
[2019-09-23] MEDS: LEVOTHYROXINE 50 MCG TABLET PO SCH (05:14)
[2019-09-23 05:39] LABS: BASOPHILS # (AUTO) 0.02 x10^3/uL (0-0.1); BASOPHILS % (AUTO) 0 % (0-1); EOSINOPHILS # (AUTO) 0.04 x10^3/uL (0-0.4); EOSINOPHILS % (AUTO) 1 % (1-7); LYMPHOCYTES # (AUTO) 1.45 x10^3/uL (1-3.4); LYMPHOCYTES % (AUTO) 29 % (22-44); MD NO; MEAN CORPUSCULAR HEMOGLOBIN 33.5 pg (27.0-34.8); MEAN CORPUSCULAR HGB CONC 33.2 g/dL (32.4-35.8); MEAN CORPUSCULAR VOLUME 101.2 fL (80-100); MEAN PLATELET VOLUME 7.8 fL (7.4-10.4); MONOCYTES # (AUTO) 0.48 x10^3/uL (0.2-0.8); MONOCYTES % (AUTO) 10 % (2-9); NEUTROPHILS # (AUTO) 3.01 x10^3/uL (1.8-6.8); NEUTROPHILS % (AUTO) 60 % (42-75); PLATELET COUNT 344 x10^3/uL (130-400); RED CELL DISTRIBUTION WIDTH 17.3 % (9.6-15.2)
[2019-09-23 05:50] LABS: ALBUMIN 2.4 g/dL (3.4-5.0); ANION GAP 4 mmol/L (5-15); CALCIUM 8.5 mg/dL (8.5-10.1); CHLORIDE 107 mmol/L (98-107)
[2019-09-23 05:54] LABS: ALANINE AMINOTRANSFERASE 68 U/L (12-78); ALKALINE PHOSPHATASE 543 U/L (45-117); BILIRUBIN,TOTAL 3.9 mg/dL (0.2-1.0); CREATININE 0.42 mg/dL (0.55-1.02); TOTAL PROTEIN 6.1 g/dL (6.4-8.2)
[2019-09-23 07:06] VITALS: BP 136/77
[2019-09-23] MEDS: POTASSIUM CHLORIDE 20 MEQ TAB.ER.PRT PO SCH (08:24)
[2019-09-23] MEDS ORDERED: OXYcodone IR 5MG TABLET PO PRN (12:00)
[2019-09-23 14:40] VITALS: BP 136/87
[2019-09-23 20:31] VITALS: BP 156/88
[2019-09-24 01:51] VITALS: BP 124/79
[2019-09-24] MEDS: MEROPENEM 1 GM in SODIUM CHLORIDE 0.9% 100 ML IV SCH ×2 (01:54→09:38)
[2019-09-24] MEDS: morphine SULFATE 10 MG/ML, 1ML IVPush PRN ×3 (03:07→09:44)
[2019-09-24 05:34] LABS: BASOPHILS # (AUTO) 0.04 x10^3/uL (0-0.1); BASOPHILS % (AUTO) 1 % (0-1); EOSINOPHILS # (AUTO) 0.07 x10^3/uL (0-0.4); EOSINOPHILS % (AUTO) 2 % (1-7); LYMPHOCYTES # (AUTO) 1.67 x10^3/uL (1-3.4); LYMPHOCYTES % (AUTO) 36 % (22-44); MD NO; MEAN CORPUSCULAR HEMOGLOBIN 33.3 pg (27.0-34.8); MEAN CORPUSCULAR HGB CONC 33.2 g/dL (32.4-35.8); MEAN CORPUSCULAR VOLUME 100.1 fL (80-100); MONOCYTES # (AUTO) 0.41 x10^3/uL (0.2-0.8); MONOCYTES % (AUTO) 9 % (2-9); NEUTROPHILS # (AUTO) 2.48 x10^3/uL (1.8-6.8); NEUTROPHILS % (AUTO) 53 % (42-75); PLATELET COUNT 401 x10^3/uL (130-400); RED BLOOD COUNT 3.17 x10^6/uL (3.82-5.3); RED CELL DISTRIBUTION WIDTH 17.5 % (9.6-15.2)
[2019-09-24 05:35] LABS: ALANINE AMINOTRANSFERASE 80 U/L (12-78); ALBUMIN 2.7 g/dL (3.4-5.0); ANION GAP 6 mmol/L (5-15); CALCIUM 9.2 mg/dL (8.5-10.1); CHLORIDE 104 mmol/L (98-107); CREATININE 0.51 mg/dL (0.55-1.02)
[2019-09-24 05:37] LABS: ALKALINE PHOSPHATASE 679 U/L (45-117); BILIRUBIN,TOTAL 3.9 mg/dL (0.2-1.0); TOTAL PROTEIN 6.6 g/dL (6.4-8.2)
[2019-09-24] MEDS: LEVOTHYROXINE 50 MCG TABLET PO SCH (05:43)
[2019-09-24] MEDS: POLYETHYLENE GLYCOL 17 GM PACKET PO PRN (05:43)
[2019-09-24] MEDS ORDERED: OMEPRAZOLE 20 MG CAPSULE.DR PO SCH (07:00)
[2019-09-24 08:25] VITALS: BP 144/81
[2019-09-24] MEDS ORDERED: LEVOFLOXACIN 750 MG TABLET PO SCH (09:00)
[2019-09-24] MEDS ORDERED: LACTOBACILLUS CHEW TABLET PO SCH (09:00)
[2019-09-24] MEDS: FENTANYL 25 MCG PATCH TD SCH (09:43)
[2019-09-24] MEDS ORDERED: LEVO750T26 PO (10:44)
== END 2019-09-24 13:13 | disposition home or self-care (01) ==
LOC: ED 01:17 → EDIP 03:19 → 3N 04:11 → 3WST 19:00 → DCLOUNGE 09-24 12:59
PROVIDERS: ADMIT Internal Medicine; ATTEND Internal Medicine
PROC: 0FJD8ZZ Inspection of Pancreatic Duct, Via Natural or Artificial Opening Endoscopic (ICD-10-PCS; principal; 2019-09-19 12:45)
DX: K80.30 Calculus of bile duct with cholangitis, unspecified, without obstruction (principal); C49.A0 Gastrointestinal stromal tumor, unspecified site; C78.7 Secondary malignant neoplasm of liver and intrahepatic bile duct; R78.81 Bacteremia; E87.1 Hypo-osmolality and hyponatremia; K80.61 Calculus of gallbladder and bile duct with cholecystitis, unspecified, with obstruction; E03.9 Hypothyroidism, unspecified; Z16.19 Resistance to other specified beta lactam antibiotics; Z16.11 Resistance to penicillins; E87.6 Hypokalemia; D72.819 Decreased white blood cell count, unspecified; D53.9 Nutritional anemia, unspecified; G89.4 Chronic pain syndrome; Z85.00 Personal history of malignant neoplasm of unspecified digestive organ; Z80.1 Family history of malignant neoplasm of trachea, bronchus and lung; Z82.5 Family history of asthma and other chronic lower respiratory diseases; Z90.49 Acquired absence of other specified parts of digestive tract; Z79.899 Other long term (current) drug therapy; Z92.21 Personal history of antineoplastic chemotherapy
CPT/HCPCS: 36415; 74018; 74177; 74328; 76700; 80053; 81003; 83605; 83690; 83735; 84100; 85025; 85610; 85730; 87040; 87077; 87186; 96374; 96375; 99285; G0378; J1100; J1170; J2185; J2405; J2543; J2704; J3010; Q9967; C1769; C1876; J0330; J2270; J3475; J7030; U0001-CS

== ENCOUNTER 2019-09-30 13:00 | Inpatient (IN) | payer MEDICAID ==
[~2019-09-30] VITALS: Ht 172.7 cm; Wt 52.4 kg
[~2019-09-30 13:00] MED LIST changes: +SUNI37.5 PO
[2019-09-30] MEDS ORDERED: LIDOCAINE-MPF 1%, 2ML INFIL ONE (13:34)
[2019-09-30] MEDS ORDERED: CHLORHEXIDINE 15 ML UDC MM ONE (13:34)
[2019-09-30] MEDS ORDERED: LACTATED RINGERS 1,000 ML IV ONE (13:34)
[2019-09-30 13:38] VITALS: BP 116/73
[2019-09-30] MEDS ORDERED: CHLORHEXIDINE 15 ML UDC ONE (13:43)
[2019-09-30] MEDS ORDERED: GLYCOPYRROLATE 0.2MG/1ML, 5ML ONE (14:59)
[2019-09-30] MEDS ORDERED: PROPOFOL 10 MG/ML, 20ML ONE (14:59)
[2019-09-30] MEDS ORDERED: DEXAMETHASONE 4 MG/ML, 1ML ONE (14:59)
[2019-09-30] MEDS ORDERED: MIDAZOLAM 1 MG/ML, 2ML ONE ×2 (15:00→16:53)
[2019-09-30] MEDS ORDERED: LABETALOL 5MG/ML, 20ML IV PRN (15:30)
[2019-09-30] MEDS ORDERED: METOCLOPRAMIDE 5 MG/ML, 2ML IVPush PRN (15:30)
[2019-09-30] MEDS ORDERED: DIAZEPAM 5 MG/ML, 2ML IVPush PRN (15:30)
[2019-09-30] MEDS ORDERED: MEPERIDINE/PF 25MG/0.5ML IVPush PRN (15:30)
[2019-09-30] MEDS ORDERED: MIDAZOLAM 1 MG/ML, 2ML IV PRN (15:30)
[2019-09-30] MEDS ORDERED: OXYcodone 5 MG/5 ML ORAL.SOL UDC PO PRN (15:30)
[2019-09-30] MEDS ORDERED: LORazepam 2 MG/ML, 1ML IVPush PRN (15:30)
[2019-09-30] MEDS ORDERED: DIPHENHYDRAMINE 50 MG/ML, 1ML IVPush PRN (15:30)
[2019-09-30] MEDS ORDERED: HYDROmorphone 1 MG/ML, 1ML INJ IVPush PRN (15:30)
[2019-09-30] MEDS ORDERED: HALOPERIDOL 5 MG/ML IV PRN (15:30)
[2019-09-30] MEDS ORDERED: EPHEDRINE 50 MG/ML, 1ML IVPush PRN (15:30)
[2019-09-30] MEDS ORDERED: HYDROcodone/APAP 7.5-325MG/15ML UDC PO PRN (15:30)
[2019-09-30] MEDS ORDERED: EPHEDRINE 50 MG/ML, 1ML IM PRN (15:30)
[2019-09-30] MEDS ORDERED: ALBUTEROL/IPRATROPIUM 2.5MG/0.5MG, 3 ML NPPB PRN (15:30)
[2019-09-30] MEDS ORDERED: hydrALAzine 20 MG/ML, 1ML IV PRN (15:30)
[2019-09-30] MEDS ORDERED: MAGNESIUM SULFATE 8 MEQ/2 ML, 2ML ONE (15:36)
[2019-09-30] MEDS ORDERED: PIPERACILLIN/TAZO/PMX 3.375GM 50 ML ONE (15:55)
[2019-09-30] MEDS ORDERED: OMNIPAQUE 350 MG/ML, 50 ML BOTTLE IV ONE (16:30)
[2019-09-30] MEDS ORDERED: OXYcodone 5 MG/5 ML ORAL.SOL UDC ONE (17:16)
[2019-09-30] MEDS ORDERED: FENTANYL PF 100 MCG/2ML ONE (17:16)
[2019-09-30] MEDS: FENTANYL PF 100 MCG/2ML IV PRN ×3 (17:20→17:52)
[2019-09-30] MEDS ORDERED: INDOMETHACIN 50 MG SUPP.RECT ONE ×2 (17:24→17:25)
[2019-09-30] MEDS ORDERED: INDOMETHACIN 50 MG SUPP.RECT PR ONE (18:00)
[2019-09-30] MEDS ORDERED: OXYcodone IR 5MG TABLET ONE (19:55)
[2019-09-30] MEDS: OXYcodone IR 5MG TABLET PO PRN (20:00)
[2019-09-30] MEDS ORDERED: SODIUM CHLORIDE 0.9% 1,000 ML IV SCH (20:53)
[2019-09-30] MEDS ORDERED: BISACODYL 10 MG SUPP PR PRN (21:00)
[2019-09-30] MEDS ORDERED: POLYETHYLENE GLYCOL 17 GM PACKET PO PRN (21:00)
[2019-10-01] MEDS ORDERED: MORPHINE SULFATE 4 MG/ML, 1ML IVPush PRN ×3 (00:30→15:00)
[2019-10-01 01:25] VITALS: BP 111/69
[2019-10-01] MEDS: OXYcodone IR 5MG TABLET PO PRN ×5 (02:19→20:11)
[2019-10-01 03:18] VITALS: BP 112/67
[2019-10-01 06:57] VITALS: BP 112/70
[2019-10-01] MEDS: URSODIOL 250 MG TABLET PO SCH (08:05)
[2019-10-01] MEDS: SENNA/DOCUSATE TABLET PO SCH (08:05)
[2019-10-01] MEDS: LEVOFLOXACIN 750 MG TABLET PO SCH (08:06)
[2019-10-01] MEDS: SPIRONOLACTONE 50 MG TABLET PO SCH (08:06)
[2019-10-01] MEDS: LEVOTHYROXINE 50 MCG TABLET PO SCH (08:06)
[2019-10-01] MEDS: LACTOBACILLUS CHEW TABLET PO SCH (08:06)
[2019-10-01] MEDS: OMEPRAZOLE 20 MG CAPSULE.DR PO SCH (08:11)
[2019-10-01] MEDS ORDERED: MORPHINE SULFATE 4 MG/ML, 1ML IVPush ONE (11:00)
[2019-10-01 11:17] LABS: BASOPHILS % (AUTO) 0 % (0-1); EOSINOPHILS % (AUTO) 0 % (1-7); LYMPHOCYTES # (AUTO) 0.82 x10^3/uL (1-3.4); LYMPHOCYTES % (AUTO) 6 % (22-44); MD NO; MEAN CORPUSCULAR HEMOGLOBIN 33.9 pg (27.0-34.8); MEAN CORPUSCULAR HGB CONC 33.7 g/dL (32.4-35.8); MEAN CORPUSCULAR VOLUME 100.6 fL (80-100); MEAN PLATELET VOLUME 7.9 fL (7.4-10.4); MONOCYTES # (AUTO) 1.21 x10^3/uL (0.2-0.8); MONOCYTES % (AUTO) 8 % (2-9); NEUTROPHILS # (AUTO) 12.68 x10^3/uL (1.8-6.8); NEUTROPHILS % (AUTO) 86 % (42-75); PLATELET COUNT 478 x10^3/uL (130-400); RED BLOOD COUNT 3.32 x10^6/uL (3.82-5.3); RED CELL DISTRIBUTION WIDTH 16.8 % (9.6-15.2)
[2019-10-01] MEDS: LACTATED RINGERS 1,000 ML IV SCH ×3 (12:26→21:51)
[2019-10-01] MEDS: ONDANSETRON 2MG/ML, 2ML IVPush PRN (12:31)
[2019-10-01 12:48] LABS: ALBUMIN 3.1 g/dL (3.4-5.0); ANION GAP 10 mmol/L (5-15); CHLORIDE 102 mmol/L (98-107)
[2019-10-01 12:51] LABS: ALANINE AMINOTRANSFERASE 47 U/L (12-78); ALKALINE PHOSPHATASE 636 U/L (45-117); BILIRUBIN,TOTAL 2.7 mg/dL (0.2-1.0); CREATININE 0.66 mg/dL (0.55-1.02); TOTAL PROTEIN 7.5 g/dL (6.4-8.2)
[2019-10-01 12:59] VITALS: BP 139/83
[2019-10-01] MEDS: MORPHINE SULFATE 4 MG/ML, 1ML IVPush PRN ×3 (14:29→22:29)
[2019-10-01 16:53] VITALS: BP 121/59
[2019-10-01 20:07] VITALS: BP 128/76
[2019-10-02] MEDS: OXYcodone IR 5MG TABLET PO PRN ×6 (00:17→23:03)
[2019-10-02] MEDS: LACTATED RINGERS 1,000 ML IV SCH ×3 (02:44→12:44)
[2019-10-02] MEDS: MORPHINE SULFATE 4 MG/ML, 1ML IVPush PRN ×5 (02:47→21:22)
[2019-10-02 02:53] VITALS: BP 106/69
[2019-10-02 05:05] LABS: BASOPHILS # (AUTO) 0.03 x10^3/uL (0-0.1); BASOPHILS % (AUTO) 0 % (0-1); EOSINOPHILS % (AUTO) 0 % (1-7); LYMPHOCYTES # (AUTO) 1.02 x10^3/uL (1-3.4); LYMPHOCYTES % (AUTO) 11 % (22-44); MD NO; MEAN CORPUSCULAR HEMOGLOBIN 33.2 pg (27.0-34.8); MEAN CORPUSCULAR HGB CONC 32.1 g/dL (32.4-35.8); MEAN CORPUSCULAR VOLUME 103.4 fL (80-100); MEAN PLATELET VOLUME 7.4 fL (7.4-10.4); MONOCYTES # (AUTO) 0.59 x10^3/uL (0.2-0.8); MONOCYTES % (AUTO) 6 % (2-9); NEUTROPHILS # (AUTO) 7.97 x10^3/uL (1.8-6.8); NEUTROPHILS % (AUTO) 83 % (42-75); PLATELET COUNT 392 x10^3/uL (130-400); RED BLOOD COUNT 3.29 x10^6/uL (3.82-5.3); RED CELL DISTRIBUTION WIDTH 16.5 % (9.6-15.2)
[2019-10-02 05:13] LABS: ALANINE AMINOTRANSFERASE 40 U/L (12-78); ALBUMIN 2.9 g/dL (3.4-5.0); ANION GAP 6 mmol/L (5-15); CALCIUM 9.1 mg/dL (8.5-10.1); CHLORIDE 104 mmol/L (98-107); CREATININE 0.63 mg/dL (0.55-1.02)
[2019-10-02 05:16] LABS: ALKALINE PHOSPHATASE 557 U/L (45-117); BILIRUBIN,TOTAL 2.6 mg/dL (0.2-1.0)
[2019-10-02 08:00] VITALS: BP 110/70
[2019-10-02] MEDS: SENNA/DOCUSATE TABLET PO SCH (08:24)
[2019-10-02] MEDS: LEVOFLOXACIN 750 MG TABLET PO SCH (08:25)
[2019-10-02] MEDS: OMEPRAZOLE 20 MG CAPSULE.DR PO SCH (08:25)
[2019-10-02] MEDS: URSODIOL 250 MG TABLET PO SCH (08:25)
[2019-10-02] MEDS: LEVOTHYROXINE 50 MCG TABLET PO SCH (08:25)
[2019-10-02] MEDS: LACTOBACILLUS CHEW TABLET PO SCH (08:26)
[2019-10-02] MEDS: SPIRONOLACTONE 50 MG TABLET PO SCH (08:26)
[2019-10-02] MEDS ORDERED: FENTANYL 25 MCG PATCH TD SCH (11:00)
[2019-10-02 13:54] VITALS: BP 123/76
[2019-10-02 20:23] VITALS: BP 120/73
[2019-10-03 01:30] VITALS: BP 127/74
[2019-10-03] MEDS: MORPHINE SULFATE 4 MG/ML, 1ML IVPush PRN ×2 (01:31→06:23)
[2019-10-03] MEDS: OXYcodone IR 5MG TABLET PO PRN ×5 (03:49→22:05)
[2019-10-03 05:52] LABS: ALBUMIN 2.6 g/dL (3.4-5.0); ANION GAP 11 mmol/L (5-15); CALCIUM 8.9 mg/dL (8.5-10.1); CHLORIDE 102 mmol/L (98-107)
[2019-10-03 05:54] LABS: ALANINE AMINOTRANSFERASE 31 U/L (12-78); ALKALINE PHOSPHATASE 474 U/L (45-117); CREATININE 0.43 mg/dL (0.55-1.02); TOTAL PROTEIN 6.6 g/dL (6.4-8.2)
[2019-10-03] MEDS: LEVOTHYROXINE 50 MCG TABLET PO SCH (06:23)
[2019-10-03] MEDS: OMEPRAZOLE 20 MG CAPSULE.DR PO SCH (08:44)
[2019-10-03] MEDS: SENNA/DOCUSATE TABLET PO SCH (08:44)
[2019-10-03] MEDS: LEVOFLOXACIN 750 MG TABLET PO SCH (08:44)
[2019-10-03] MEDS: URSODIOL 250 MG TABLET PO SCH (08:44)
[2019-10-03] MEDS: SPIRONOLACTONE 50 MG TABLET PO SCH (08:44)
[2019-10-03] MEDS: LACTOBACILLUS CHEW TABLET PO SCH (08:44)
[2019-10-03 08:50] VITALS: BP 132/81
[2019-10-03] MEDS ORDERED: POTASSIUM CHLORIDE 20 MEQ TAB.ER.PRT PO ONE (09:30)
[2019-10-03] MEDS: D5%-0.45% NACL+KCL 10MEQ 1,000 ML IV SCH ×2 (10:32→22:55)
[2019-10-03] MEDS ORDERED: MORPHINE SULFATE 4 MG/ML, 1ML IVPush PRN (11:00)
[2019-10-03] MEDS ORDERED: LACTATED RINGERS 1,000 ML IV SCH (12:00)
[2019-10-03 14:41] VITALS: BP 135/79
[2019-10-03 20:37] VITALS: BP 145/75
[2019-10-04 00:34] VITALS: BP 98/61
[2019-10-04] MEDS: OXYcodone IR 5MG TABLET PO PRN ×3 (02:14→10:43)
[2019-10-04] MEDS ORDERED: POTASSIUM CHLORIDE 20 MEQ TAB.ER.PRT PO SCH (08:30)
[2019-10-04] MEDS: URSODIOL 250 MG TABLET PO SCH (08:56)
[2019-10-04] MEDS: LEVOFLOXACIN 750 MG TABLET PO SCH (08:56)
[2019-10-04] MEDS: LEVOTHYROXINE 50 MCG TABLET PO SCH (08:57)
[2019-10-04] MEDS: SENNA/DOCUSATE TABLET PO SCH (08:57)
[2019-10-04] MEDS: OMEPRAZOLE 20 MG CAPSULE.DR PO SCH (08:57)
[2019-10-04] MEDS: LACTOBACILLUS CHEW TABLET PO SCH (08:57)
[2019-10-04] MEDS: SPIRONOLACTONE 50 MG TABLET PO SCH (08:57)
[2019-10-04 09:14] VITALS: BP 161/79
[2019-10-04] MEDS: ONDANSETRON 2MG/ML, 2ML IVPush PRN (10:40)
[2019-10-04] MEDS ORDERED: POTA20TA6 PO (11:34)
[2019-10-04 14:11] VITALS: BP 123/75
== END 2019-10-04 15:50 | disposition home or self-care (01) | DRG 343 ==
LOC: OUT 13:00 → 4NE 18:41 → OUT 18:43 → 4NE 20:45 → INTOOBSV 20:45 → OBSVTOIN 20:45 → 3WST 10-01 16:45 → DCLOUNGE 10-04 15:38
PROVIDERS: ADMIT Internal Medicine; ATTEND Internal Medicine
PROC: BF101ZZ Fluoroscopy of Bile Ducts using Low Osmolar Contrast (ICD-10-PCS; principal; 2019-10-01)
PROC: 0FJB8ZZ Inspection of Hepatobiliary Duct, Via Natural or Artificial Opening Endoscopic (ICD-10-PCS; 2019-10-01)
DX: C49.A0 Gastrointestinal stromal tumor, unspecified site (principal); K85.90 Acute pancreatitis without necrosis or infection, unspecified; R64 Cachexia; C78.7 Secondary malignant neoplasm of liver and intrahepatic bile duct; K83.1 Obstruction of bile duct; E03.9 Hypothyroidism, unspecified; G89.18 Other acute postprocedural pain; D72.829 Elevated white blood cell count, unspecified; G89.29 Other chronic pain; Z90.49 Acquired absence of other specified parts of digestive tract; Z80.1 Family history of malignant neoplasm of trachea, bronchus and lung; Z82.5 Family history of asthma and other chronic lower respiratory diseases; Z85.00 Personal history of malignant neoplasm of unspecified digestive organ
CPT/HCPCS: 36415; 74328; 80053; 83690; 85025; G0378; J1100; J2250; J2405; J2543; J2704; J3010; J3475; Q9967; C1769; J2270; J7030; J7120

== ENCOUNTER 2019-12-06 13:52 | Inpatient (IN) | payer MEDICAID ==
[~2019-12-06] VITALS: Ht 170.2 cm; Wt 55.0 kg
[~2019-12-06 13:52] MED LIST changes: +POTA20TA6 PO
[2019-12-06 15:46] LABS: BASOPHILS # (AUTO) 0.03 x10^3/uL (0-0.1); BASOPHILS % (AUTO) 0 % (0-1); EOSINOPHILS # (AUTO) 0.13 x10^3/uL (0-0.4); EOSINOPHILS % (AUTO) 2 % (1-7); LYMPHOCYTES # (AUTO) 1.42 x10^3/uL (1-3.4); LYMPHOCYTES % (AUTO) 20 % (22-44); MD NO; MEAN CORPUSCULAR HGB CONC 33.4 g/dL (32.4-35.8); MEAN CORPUSCULAR VOLUME 89.9 fL (80-100); MEAN PLATELET VOLUME 7.9 fL (7.4-10.4); MONOCYTES # (AUTO) 0.77 x10^3/uL (0.2-0.8); MONOCYTES % (AUTO) 11 % (2-9); NEUTROPHILS # (AUTO) 4.61 x10^3/uL (1.8-6.8); NEUTROPHILS % (AUTO) 66 % (42-75); PLATELET COUNT 276 x10^3/uL (130-400); RED BLOOD COUNT 4.31 x10^6/uL (3.82-5.3); RED CELL DISTRIBUTION WIDTH 15.2 % (9.6-15.2)
[2019-12-06 15:59] LABS: INTERNATIONAL NORMALIZED RATIO 1.12 (0.93-1.1); PROTHROMBIN TIME 11.5 Seconds (9.6-11.5)
[2019-12-06 16:00] LABS: ALBUMIN 3.4 g/dL (3.4-5.0); ANION GAP 4 mmol/L (5-15); CALCIUM 9.7 mg/dL (8.5-10.1); CHLORIDE 98 mmol/L (98-107)
[2019-12-06 16:04] LABS: ALANINE AMINOTRANSFERASE 82 U/L (12-78); ALKALINE PHOSPHATASE 434 U/L (45-117); BILIRUBIN,TOTAL 7.4 mg/dL (0.2-1.0); CREATININE 0.74 mg/dL (0.55-1.02)
--- NOTE | 2019-12-06 16:31 | NUR ---
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
[2019-12-06 16:47] LABS: MICROSCOPIC NOT IND
--- NOTE | 2019-12-06 16:56 | NUR ---
PT CAME IN CO OF ANDREW, RUQ ABD PAIN THAT RAIDATES TO BACK. PT STATES SHE HAS LIVER CANCER. PT APPEARS JAUNDICED, WHICH, SHE SAYS IS NEW FOR HER. LABS HAVE BEEN DRAWN, UA SENT. PT IS RESTING IN [facility].
[2019-12-06] MEDS ORDERED: ONDANSETRON 2MG/ML, 2ML ONE (17:30)
[2019-12-06] MEDS ORDERED: SODIUM CHLORIDE FLUSH 10ML SYR IVF ONE (17:30)
[2019-12-06] MEDS ORDERED: MORPHINE SULFATE 4 MG/ML, 1ML ONE (17:30)
[2019-12-06] MEDS ORDERED: SODIUM CHLORIDE 0.9% 1,000ML IVBOLUS ONE (17:30)
[2019-12-06] MEDS ORDERED: ONDANSETRON 2MG/ML, 2ML IVPush ONE (17:30)
[2019-12-06] MEDS ORDERED: MORPHINE SULFATE 4 MG/ML, 1ML IVPush PRN (17:30)
--- NOTE | 2019-12-06 17:43 | NUR ---
PT MEDICATED PER JUN. PT REPORTS PAIN IMPROVEMENT
[2019-12-06 17:55] LABS: TROPONIN I < 0.015 ng/mL (0.000-0.045)
--- NOTE | 2019-12-06 18:15 | NUR ---
PT AMBULATED TO BATHROOM
[2019-12-06] MEDS ORDERED: SODIUM CHLORIDE 0.9% 1,000 ML IV SCH (19:23)
[2019-12-06 20:34] VITALS: BP 130/78
[2019-12-06] MEDS ORDERED: OMNIPAQUE 350 MG/ML, 100ML BOTTLE ONE (21:42)
[2019-12-06] MEDS: HYDROmorphone 2 MG/ML, 1ML IVPush PRN (23:20)
[2019-12-06] MEDS: HEPARIN 5,000 UNITS/ML, 1ML SQ SCH (23:21)
[2019-12-07 00:07] VITALS: BP 104/65
[2019-12-07] MEDS: HYDROmorphone 2 MG/ML, 1ML IVPush PRN ×5 (02:40→23:18)
[2019-12-07] MEDS: OMEPRAZOLE 20 MG CAPSULE.DR PO SCH (05:13)
[2019-12-07] MEDS: LEVOTHYROXINE 50 MCG TABLET PO SCH (05:49)
[2019-12-07 06:07] LABS: BASOPHILS # (AUTO) 0.03 x10^3/uL (0-0.1); BASOPHILS % (AUTO) 1 % (0-1); EOSINOPHILS # (AUTO) 0.06 x10^3/uL (0-0.4); EOSINOPHILS % (AUTO) 1 % (1-7); LYMPHOCYTES # (AUTO) 1.16 x10^3/uL (1-3.4); LYMPHOCYTES % (AUTO) 25 % (22-44); MD NO; MEAN CORPUSCULAR HEMOGLOBIN 30.3 pg (27.0-34.8); MEAN CORPUSCULAR HGB CONC 33.7 g/dL (32.4-35.8); MEAN CORPUSCULAR VOLUME 89.7 fL (80-100); MONOCYTES # (AUTO) 0.53 x10^3/uL (0.2-0.8); MONOCYTES % (AUTO) 11 % (2-9); NEUTROPHILS % (AUTO) 62 % (42-75); PLATELET COUNT 204 x10^3/uL (130-400); RED BLOOD COUNT 3.95 x10^6/uL (3.82-5.3)
[2019-12-07 06:11] LABS: ALANINE AMINOTRANSFERASE 66 U/L (12-78); ALBUMIN 2.7 g/dL (3.4-5.0); ANION GAP 7 mmol/L (5-15); CALCIUM 8.6 mg/dL (8.5-10.1); CHLORIDE 107 mmol/L (98-107); CREATININE 0.46 mg/dL (0.55-1.02)
[2019-12-07 06:15] LABS: ALKALINE PHOSPHATASE 357 U/L (45-117); TOTAL PROTEIN 6.8 g/dL (6.4-8.2)
[2019-12-07] MEDS: HEPARIN 5,000 UNITS/ML, 1ML SQ SCH ×3 (07:30→23:15)
[2019-12-07] MEDS ORDERED: POTASSIUM CHLORIDE 20 MEQ TAB.ER.PRT PO ONE (08:00)
[2019-12-07] MEDS ORDERED: POTASSIUM CHLORIDE 20 MEQ TAB.ER.PRT PO SCH (08:00)
[2019-12-07] MEDS: SPIRONOLACTONE 50 MG TABLET PO SCH (08:27)
[2019-12-07] MEDS: URSODIOL 250 MG TABLET PO SCH (08:28)
[2019-12-07] MEDS: SENNA/DOCUSATE TABLET PO SCH (08:28)
[2019-12-07] MEDS: LACTOBACILLUS CHEW TABLET PO SCH ×3 (08:30→19:45)
[2019-12-07] MEDS: OXYcodone IR 5MG TABLET PO PRN ×4 (08:39→22:00)
[2019-12-07 09:28] VITALS: BP 128/80
[2019-12-07] MEDS: ONDANSETRON 2MG/ML, 2ML IVPush PRN (13:41)
[2019-12-07 15:55] VITALS: BP 143/79
[2019-12-07] MEDS: SODIUM CHLORIDE 0.9% 1,000 ML IV SCH ×2 (17:37→21:02)
[2019-12-07 18:53] VITALS: BP 125/78
[2019-12-07] MEDS ORDERED: HYDROmorphone 1 MG/ML, 1ML INJ ONE (23:16)
[2019-12-08 01:38] VITALS: BP 113/68
[2019-12-08] MEDS: OXYcodone IR 5MG TABLET PO PRN ×4 (02:59→23:22)
[2019-12-08 05:11] LABS: ALBUMIN 2.7 g/dL (3.4-5.0); ANION GAP 9 mmol/L (5-15); CALCIUM 8.3 mg/dL (8.5-10.1); CHLORIDE 106 mmol/L (98-107)
[2019-12-08 05:15] LABS: ALANINE AMINOTRANSFERASE 59 U/L (12-78); ALKALINE PHOSPHATASE 362 U/L (45-117); BILIRUBIN,TOTAL 6.1 mg/dL (0.2-1.0); CREATININE 0.45 mg/dL (0.55-1.02); TOTAL PROTEIN 6.6 g/dL (6.4-8.2)
[2019-12-08] MEDS ORDERED: HYDROmorphone 1 MG/ML, 1ML INJ ONE (06:05)
[2019-12-08] MEDS: HYDROmorphone 2 MG/ML, 1ML IVPush PRN ×3 (06:08→20:28)
[2019-12-08] MEDS: LEVOTHYROXINE 50 MCG TABLET PO SCH (06:08)
[2019-12-08 08:24] VITALS: BP 118/79
[2019-12-08] MEDS ORDERED: POTASSIUM CHLORIDE 20 MEQ TAB.ER.PRT PO ONE (08:30)
[2019-12-08] MEDS: SENNA/DOCUSATE TABLET PO SCH (09:22)
[2019-12-08] MEDS: LACTOBACILLUS CHEW TABLET PO SCH ×3 (09:22→20:21)
[2019-12-08] MEDS: SPIRONOLACTONE 50 MG TABLET PO SCH (09:22)
[2019-12-08] MEDS: OMEPRAZOLE 20 MG CAPSULE.DR PO SCH (09:22)
[2019-12-08] MEDS: URSODIOL 250 MG TABLET PO SCH (11:05)
[2019-12-08] MEDS: HEPARIN 5,000 UNITS/ML, 1ML SQ SCH ×2 (11:07→20:21)
[2019-12-08] MEDS ORDERED: FENTANYL REMOVE PATCH NOTE XX SCH (12:59)
[2019-12-08] MEDS ORDERED: FENTANYL 50 MCG PATCH TD SCH (13:00)
[2019-12-08] MEDS: SODIUM CHLORIDE 0.9% 1,000 ML IV SCH (13:30)
[2019-12-08 14:19] VITALS: BP 148/89
[2019-12-08] MEDS ORDERED: BISACODYL 10 MG SUPP PR PRN (15:30)
[2019-12-08] MEDS ORDERED: POLYETHYLENE GLYCOL 17 GM PACKET PO PRN (15:30)
[2019-12-08] MEDS: ONDANSETRON 2MG/ML, 2ML IVPush PRN (16:45)
[2019-12-08 19:15] VITALS: BP 124/75
[2019-12-09 01:13] VITALS: BP 131/77
[2019-12-09] MEDS: HYDROmorphone 2 MG/ML, 1ML IVPush PRN ×3 (02:33→11:16)
[2019-12-09] MEDS: HEPARIN 5,000 UNITS/ML, 1ML SQ SCH ×2 (02:57→11:17)
[2019-12-09] MEDS: OXYcodone IR 5MG TABLET PO PRN ×2 (05:37→12:53)
[2019-12-09] MEDS: LEVOTHYROXINE 50 MCG TABLET PO SCH (05:37)
[2019-12-09 05:55] LABS: CHLORIDE 105 mmol/L (98-107)
[2019-12-09 06:03] LABS: ALANINE AMINOTRANSFERASE 59 U/L (12-78); ALBUMIN 2.6 g/dL (3.4-5.0); ALKALINE PHOSPHATASE 343 U/L (45-117); BILIRUBIN,TOTAL 4.4 mg/dL (0.2-1.0); CALCIUM 8.7 mg/dL (8.5-10.1); CREATININE 0.49 mg/dL (0.55-1.02); TOTAL PROTEIN 6.3 g/dL (6.4-8.2)
[2019-12-09 06:08] LABS: ANION GAP 7 mmol/L (5-15)
[2019-12-09] MEDS: OMEPRAZOLE 20 MG CAPSULE.DR PO SCH (07:22)
[2019-12-09] MEDS: LACTOBACILLUS CHEW TABLET PO SCH ×2 (08:07→16:45)
[2019-12-09] MEDS: SODIUM CHLORIDE 0.9% 1,000 ML IV SCH (08:07)
[2019-12-09] MEDS: SPIRONOLACTONE 50 MG TABLET PO SCH (08:08)
[2019-12-09] MEDS: SENNA/DOCUSATE TABLET PO SCH (08:08)
[2019-12-09] MEDS: URSODIOL 250 MG TABLET PO SCH (08:08)
[2019-12-09 08:25] VITALS: BP 150/87
[2019-12-09] MEDS ORDERED: BISA10SU4 PR (13:16)
[2019-12-09] MEDS ORDERED: SENN-193 PO (13:16)
[2019-12-09] MEDS ORDERED: POLY17PO5 PO (13:16)
[2019-12-09 15:00] VITALS: BP 148/87
== END 2019-12-09 18:28 | disposition home or self-care (01) | DRG 343 ==
LOC: ED 18:11 → UNDOADMIN 19:16 → EDIP 19:16 → 3N 20:29 → 4NW 12-07 20:24
PROVIDERS: ADMIT Family Medicine; ATTEND Internal Medicine
DX: C49.A0 Gastrointestinal stromal tumor, unspecified site (principal); K83.1 Obstruction of bile duct; C78.7 Secondary malignant neoplasm of liver and intrahepatic bile duct; E03.9 Hypothyroidism, unspecified; E87.1 Hypo-osmolality and hyponatremia; E87.6 Hypokalemia; G89.29 Other chronic pain; K59.03 Drug induced constipation; T40.605A Adverse effect of unspecified narcotics, initial encounter; Z90.49 Acquired absence of other specified parts of digestive tract
CPT/HCPCS: 36415; 71045; 74177; 76700; 78226; 80053; 81003; 83690; 83735; 84484; 85025; 85610; 93005; G0378; J1170; J1644; J2405; Q9967; A9537; J2270; J7030

== ENCOUNTER 2020-02-14 18:28 | Inpatient (IN) | payer MEDICAID ==
[~2020-02-14] VITALS: Ht 172.7 cm; Wt 54.9 kg
[~2020-02-14 18:28] MED LIST changes: +BISA10SU4 PR; -PANT40TA5 PO; +PANT40TA6 PO; +POLY17PO5 PO; +SENN-193 PO
--- NOTE | 2020-02-14 18:45 | NUR ---
LATE ENTRY: PT CAME IN CO OF SEVER LLQ RLQ ABD PAIN X 2 DAYS. PT ARRIVED TO ROOM AND HAS BEEN PACING AND MOANING IN PAIN. NOTIFIED. UA AND LABS SENT.
[2020-02-14] MEDS ORDERED: ONDANSETRON 2MG/ML, 2ML ONE (19:29)
[2020-02-14] MEDS ORDERED: MORPHINE SULFATE 4 MG/ML, 1ML ONE (19:29)
[2020-02-14] MEDS ORDERED: SODIUM CHLORIDE 0.9% 1,000ML IVBOLUS ONE (19:30)
[2020-02-14] MEDS ORDERED: ONDANSETRON 2MG/ML, 2ML IVPush ONE (19:30)
[2020-02-14] MEDS ORDERED: SODIUM CHLORIDE FLUSH 10ML SYR IVF ONE (19:30)
[2020-02-14] MEDS: MORPHINE SULFATE 4 MG/ML, 1ML IVPush PRN ×2 (19:39→23:18)
--- NOTE | 2020-02-14 20:00 | NUR ---
LATE ENTRY: PT MEDICATED PER MAR
[2020-02-14 20:11] LABS: BASOPHILS % (AUTO) 0 % (0-1); EOSINOPHILS % (AUTO) 0 % (1-7); LYMPHOCYTES % (AUTO) 6 % (22-44); MEAN CORPUSCULAR HEMOGLOBIN 29.3 pg (27.0-34.8); MEAN CORPUSCULAR HGB CONC 33.2 g/dL (32.4-35.8); MEAN PLATELET VOLUME 7.7 fL (7.4-10.4); MONOCYTES % (AUTO) 13 % (2-9); NEUTROPHILS % (AUTO) 81 % (42-75); PLATELET COUNT 312 x10^3/uL (130-400); RED BLOOD COUNT 4.64 x10^6/uL (3.82-5.3); RED CELL DISTRIBUTION WIDTH 14.4 % (9.6-15.2)
[2020-02-14 20:13] LABS: MICROSCOPIC INDICATED
[2020-02-14 20:14] LABS: ALANINE AMINOTRANSFERASE 30 U/L (12-78); ALBUMIN 3.6 g/dL (3.4-5.0); ANION GAP 9 mmol/L (5-15); CALCIUM 9.5 mg/dL (8.5-10.1); CHLORIDE 104 mmol/L (98-107); CREATININE 0.69 mg/dL (0.55-1.02)
[2020-02-14 20:16] LABS: ALKALINE PHOSPHATASE 429 U/L (45-117); BILIRUBIN,TOTAL 1.6 mg/dL (0.2-1.0); TOTAL PROTEIN 8.5 g/dL (6.4-8.2)
[2020-02-14 20:44] LABS: MD SCAN
--- NOTE | 2020-02-14 20:44 | NUR ---
PT TO CT AT THIS TIME
--- NOTE | 2020-02-14 20:58 | NUR ---
PT RETURNED FROM CT. VSS. NAD
[2020-02-14] MEDS ORDERED: OMNIPAQUE 350 MG/ML, 100ML BOTTLE ONE (21:29)
--- NOTE | 2020-02-14 21:45 | NUR ---
NOTIFIED OF PTs BP. SEE MAR FOR INTERVENTIONS
--- NOTE | 2020-02-14 22:23 | NUR ---
REPORT GIVEN TO ANDERSON, PREPARING TO TRANSFER PATIENT.
[2020-02-14] MEDS ORDERED: SODIUM CHLORIDE 0.9%, 500ML IVBOLUS ONE (22:30)
[2020-02-14 23:00] VITALS: BP 120/75
[2020-02-15] MEDS: LACTATED RINGERS 1,000 ML IV SCH ×4 (00:21→21:21)
[2020-02-15] MEDS: ENOXAPARIN 40 MG/0.4 ML SQ SCH (00:22)
[2020-02-15] MEDS ORDERED: GUAIFENESIN/DM 200-20MG, 10ML UDC PO PRN (00:30)
[2020-02-15] MEDS ORDERED: ENALAPRILAT 1.25 MG/ML, 2ML IVPush PRN (00:30)
[2020-02-15] MEDS ORDERED: ZOLPIDEM 5MG TABLET PO PRN (00:30)
[2020-02-15] MEDS ORDERED: METHOCARBAMOL 500 MG TABLET PO PRN (00:30)
[2020-02-15] MEDS ORDERED: HYDROcodone/APAP 5/325 TABLET PO PRN (00:30)
[2020-02-15 05:01] LABS: BASOPHILS % (AUTO) 0 % (0-1); EOSINOPHILS % (AUTO) 0 % (1-7); LYMPHOCYTES % (AUTO) 17 % (22-44); MEAN CORPUSCULAR HEMOGLOBIN 29.4 pg (27.0-34.8); MEAN CORPUSCULAR HGB CONC 32.9 g/dL (32.4-35.8); MEAN PLATELET VOLUME 7.5 fL (7.4-10.4); MONOCYTES % (AUTO) 7 % (2-9); NEUTROPHILS % (AUTO) 75 % (42-75); PLATELET COUNT 282 x10^3/uL (130-400); RED BLOOD COUNT 3.85 x10^6/uL (3.82-5.3); RED CELL DISTRIBUTION WIDTH 13.8 % (9.6-15.2)
[2020-02-15] MEDS: morphine SULFATE 10 MG/ML, 1ML IVPush PRN ×6 (05:01→21:11)
[2020-02-15 05:03] VITALS: BP 104/68
[2020-02-15 05:05] LABS: MD NO
[2020-02-15 05:12] LABS: CHLORIDE 106 mmol/L (98-107)
[2020-02-15 05:19] LABS: ANION GAP 4 mmol/L (5-15); CALCIUM 8.7 mg/dL (8.5-10.1); CREATININE 0.49 mg/dL (0.55-1.02)
[2020-02-15 06:56] VITALS: BP 107/69
[2020-02-15] MEDS: FAMOTIDINE 20 MG/2 ML IVPush SCH ×2 (08:06→22:50)
[2020-02-15 12:31] VITALS: BP 119/74
[2020-02-15 15:11] VITALS: BP 138/70
[2020-02-15 19:57] VITALS: BP 124/72
[2020-02-16] MEDS: morphine SULFATE 10 MG/ML, 1ML IVPush PRN ×3 (01:16→07:43)
[2020-02-16] MEDS: ENOXAPARIN 40 MG/0.4 ML SQ SCH (01:16)
[2020-02-16 01:37] VITALS: BP 113/70
[2020-02-16] MEDS: LACTATED RINGERS 1,000 ML IV SCH ×3 (03:06→16:34)
[2020-02-16] MEDS: ONDANSETRON 2MG/ML, 2ML IVPush PRN ×2 (04:15→10:50)
[2020-02-16 06:18] LABS: ALANINE AMINOTRANSFERASE 22 U/L (12-78); ALBUMIN 2.5 g/dL (3.4-5.0); ANION GAP 9 mmol/L (5-15); CALCIUM 8.9 mg/dL (8.5-10.1); CHLORIDE 108 mmol/L (98-107); CREATININE 0.43 mg/dL (0.55-1.02)
[2020-02-16 06:20] LABS: ALKALINE PHOSPHATASE 331 U/L (45-117); BILIRUBIN,TOTAL 1.2 mg/dL (0.2-1.0); TOTAL PROTEIN 6.3 g/dL (6.4-8.2)
[2020-02-16 07:33] VITALS: BP 111/70
[2020-02-16] MEDS: FAMOTIDINE 20 MG/2 ML IVPush SCH (10:22)
[2020-02-16 11:08] LABS: CHOL/HDL RATIO 4.9; LDL/HDL RATIO 3.4 (0.5-3.0)
[2020-02-16] MEDS: OXYcodone IR 5MG TABLET PO PRN ×3 (11:30→19:59)
[2020-02-16 12:58] VITALS: BP 133/81
[2020-02-16] MEDS ORDERED: FAMOTIDINE 40 MG TABLET ONE (19:55)
[2020-02-16] MEDS: FAMOTIDINE 20 MG TABLET PO SCH (19:59)
[2020-02-16] MEDS: DOCUSATE 100 MG CAPSULE PO PRN (20:10)
[2020-02-16 20:11] VITALS: BP 151/78
[2020-02-16] MEDS ORDERED: FENTANYL 50 MCG PATCH TD SCH (21:00)
[2020-02-17] MEDS: LACTATED RINGERS 1,000 ML IV SCH ×3 (00:08→12:38)
[2020-02-17] MEDS: OXYcodone IR 5MG TABLET PO PRN ×5 (00:08→20:47)
[2020-02-17] MEDS: ENOXAPARIN 40 MG/0.4 ML SQ SCH (00:09)
[2020-02-17 01:52] VITALS: BP 114/68
[2020-02-17] MEDS: morphine SULFATE 10 MG/ML, 1ML IVPush PRN ×2 (03:04→08:55)
[2020-02-17] MEDS ORDERED: FAMOTIDINE 40 MG TABLET ONE ×3 (08:48→19:46)
[2020-02-17] MEDS: ONDANSETRON 2MG/ML, 2ML IVPush PRN (08:54)
[2020-02-17] MEDS: FAMOTIDINE 20 MG TABLET PO SCH ×2 (08:56→19:51)
[2020-02-17 09:27] VITALS: BP 138/82
[2020-02-17] MEDS: ACETAMINOPHEN 325 MG TABLET PO PRN ×2 (09:39→19:51)
[2020-02-17 14:12] VITALS: BP 113/72
[2020-02-17 19:30] VITALS: BP 117/73
[2020-02-17] MEDS: DOCUSATE 100 MG CAPSULE PO PRN (19:54)
[2020-02-18 00:47] VITALS: BP 114/66
[2020-02-18] MEDS: ENOXAPARIN 40 MG/0.4 ML SQ SCH (00:50)
[2020-02-18] MEDS: OXYcodone IR 5MG TABLET PO PRN ×4 (00:58→13:41)
[2020-02-18 05:38] LABS: CHLORIDE 103 mmol/L (98-107)
[2020-02-18 05:41] LABS: BASOPHILS % (AUTO) 1 % (0-1); EOSINOPHILS % (AUTO) 0 % (1-7); LYMPHOCYTES % (AUTO) 18 % (22-44); MEAN CORPUSCULAR HEMOGLOBIN 29.4 pg (27.0-34.8); MEAN CORPUSCULAR HGB CONC 33.1 g/dL (32.4-35.8); MEAN PLATELET VOLUME 7.9 fL (7.4-10.4); MONOCYTES % (AUTO) 16 % (2-9); NEUTROPHILS % (AUTO) 65 % (42-75); PLATELET COUNT 263 x10^3/uL (130-400); RED BLOOD COUNT 3.81 x10^6/uL (3.82-5.3); RED CELL DISTRIBUTION WIDTH 13.5 % (9.6-15.2)
[2020-02-18 05:55] LABS: ALANINE AMINOTRANSFERASE 50 U/L (12-78); ALBUMIN 2.6 g/dL (3.4-5.0); ALKALINE PHOSPHATASE 357 U/L (45-117); ANION GAP 8 mmol/L (5-15); BILIRUBIN,TOTAL 1.2 mg/dL (0.2-1.0); CALCIUM 8.9 mg/dL (8.5-10.1); CREATININE 0.51 mg/dL (0.55-1.02); TOTAL PROTEIN 6.2 g/dL (6.4-8.2)
[2020-02-18 06:04] LABS: MD NO
[2020-02-18 06:54] VITALS: BP 122/75
[2020-02-18] MEDS ORDERED: FAMOTIDINE 40 MG TABLET ONE (07:54)
[2020-02-18] MEDS: FAMOTIDINE 20 MG TABLET PO SCH (08:02)
[2020-02-18] MEDS ORDERED: POTASSIUM CHLORIDE 40 MEQ in SODIUM CHLORIDE 0.9% 500 ML IV ONE (08:30)
[2020-02-18] MEDS: ONDANSETRON 2MG/ML, 2ML IVPush PRN (09:27)
[2020-02-18 13:39] VITALS: BP 133/78
[2020-02-19] MEDS ORDERED: FENTANYL REMOVE PATCH NOTE XX SCH (11:00)
== END 2020-02-18 14:43 | disposition home or self-care (01) | DRG 282 ==
LOC: ED 19:10 → UNDOADMIN 21:41 → EDIP 21:41 → 3WST 23:00 → ED 23:12 → EDIP 23:18 → 3WST 23:18 → 4NW 02-15 14:30 → DCLOUNGE 02-18 14:30
PROVIDERS: ADMIT Internal Medicine; ATTEND Internal Medicine
DX: K85.90 Acute pancreatitis without necrosis or infection, unspecified (principal); E03.9 Hypothyroidism, unspecified; E87.6 Hypokalemia; F12.90 Cannabis use, unspecified, uncomplicated; R17 Unspecified jaundice; C49.A0 Gastrointestinal stromal tumor, unspecified site; Z82.49 Family history of ischemic heart disease and other diseases of the circulatory system
CPT/HCPCS: 36415; 74177; 80048; 80053; 80061; 81001; 83690; 83735; 85025; 87086; 96374; 96375; 96376; 99285; G0378; J1650; J2405; J3480; Q9967; J2270; J7030; J7040; J7120

== ENCOUNTER → 2020-02-29 | Outpatient (CLI) | payer MEDICAID | END | disposition home or self-care (01) | LOC: CFH 13:12 | PROVIDERS: ATTEND Genetic Counselor, MS | DX: Z12.31 Encounter for screening mammogram for malignant neoplasm of breast (principal) | CPT/HCPCS: 76641; 77063; 77067 ==